=== PATIENT | female | born 1965 | race Caucasian/White ===

== ENCOUNTER 2020-08-04 15:44 | Emergency (ER) | payer OTHER, SELFPAY ==
--- NOTE | ~2020-08-04 | XR_ITS ---
EXAMINATION: XR nasal bones min 3V DATE: 08/04/2020 16:23 INDICATION: Nose injury. TECHNIQUE: 3 views of the nasal bones were obtained. COMPARISON: None. FINDINGS: There are transverse fractures of the nasal bones with less than 1 mm displacement. There i s rightward deviation of the nasal septum. IMPRESSION: 1. Fractures of the nasal bones. Reviewed, dictated and finalized at location A. LITIES MAINTENANCE ASSISTANT
--- NOTE | ~2020-08-04 | XR_ITS ---
EXAMINATION: XR hand LT min 3V DATE: 08/04/2020 16:22 INDICATION: Left thumb pain post fall 4 days prior TECHNIQUE: Posteroanterior, oblique and lateral views of the left hand were obtained. COMPARISON: None. FINDINGS: There appears be widening at the scapholunate interval on the dorsal palmar projection although carpa l alignment appears normal on the lateral projection with no evident dorsal intercalated segment inst ability (DISI). No fracture. Mild osteoarthritis at the first carpometacarpal joint. Mild soft tissue swelling about the base of the first metacarpal. IMPRESSION: 1. The scapholunate interval appears widened on the dorsal palmar image suspicious for possible scaph olunate ligament injury but without evident dorsal intercalated segment instability (DISI) on the lat eral projection to more definitively suggest this. Could consider either dedicated left wrist radiogr aphs with clenched fist or ulnar deviated views or MRI for further evaluation. 2. Mild osteoarthritis at the first carpometacarpal joint. No evident fracture. Reviewed, dictated and finalized at location A. [employer] ELECT[employer]ICIAN IMPRESSION: 1. The scapholunate interval appears widened on the dorsal palmar image suspici ous for possible scapholunate ligament injury but without evident dorsal interc alated segment instability (DISI) on the lateral projection to more definitivel y suggest this. Could consider either dedicated left wrist radiographs with jacquie nched fist or ulnar deviated views or MRI for further evaluation. 2. Mild osteoarthritis at the first carpometacarpal joint. No evident fracture.
--- NOTE | ~2020-08-04 | XR_ITS ---
EXAMINATION: XR wrist LT min 3V EXAM DATE: 08/04/2020 16:42 INDICATION: Lt wrist/hand pain after falling 3x days ago. Anteriorly . Initial encounter. TECHNIQUE: Left wrist frontal, frontal with ulnar deviation, oblique and lateral projections obtained and reviewed. Correlation is made to left hand x-ray same date. FINDINGS: There is left-sided scapholunate joint space widening consistent with dissociation. Cannot determine whether this is an acute or chronic finding, but no appreciable capitate settling at this t mariah. There is moderate 1st carpometacarpal joint primary osteoarthritis. There are no acute fractures or dislocations identified. There is no subcutaneous gas. There are no radiopaque foreign bodies . IMPRESSION: 1. Left-sided scapholunate dissociation, age indeterminate. 2. No fracture. Reviewed, dictated and finalized at location B. ANTER
--- NOTE | 2020-08-04 15:50 | ED.GENADULT ---
HPI - General Adult General Chief complaint: Fall Stated complaint: fall/nose injury/lt hand injury Time Seen by Provider: 08/04/20 16:05 Source: patient and RN notes reviewed Mode of arrival: ambulatory Limitations: no limitations History of Present Illness HPI narrative: 55 year old female who presents to [facility] care with complaints of passing out at home on Friday hitting her face on the hardwood floor with injury to her nose, lips and chipped front 4 teeth. She states that she was dehydrated from being ill and passed out when she got up too fast, had negative flu and Covid test done on Friday.Patient states that she has had syncopal episodes like this in past and was seen in the emergency room in 2003 after and episode,states she takes no medication for hypertension. Patient has noted abrasions around mouth and across nose,healing lip lacerations, small raised bruised area to her left forehead, and also injury to her left hand at thumb region where she is unable to completely make closed fist. Patient states that she went to [facility] clinic today and they gave her an antibiotic but were unable to do x-rays, Dr Napoles is to see patient on Friday and he wanted her to have films and be seen prior to visit. MD complaint: possible fractured nose and left hand pain Onset (ago): day(s) (3) Location: head, left and upper extremity (hand) Radiation: non-radiation Severity: moderate Severity scale (1-10): 5 Quality: aching and other (throbbing) Treatments prior to arrival: NSAID Related Data Home Medications Medication Instructions Recorded Confirmed amoxicillin-pot clavulanate 1 tablet PO Q12H 08/04/20 08/04/20 ergocalciferol (vitamin D2) 50,000 unit PO WEEKLY 08/04/20 08/04/20 escitalopram oxalate 10 mg PO DAILY 08/04/20 08/04/20 Allergies Allergy/AdvReac Type Severity Reaction Status Date / Time Sulfa (Sulfonamide Allergy Hives Verified 08/04/20 15:57 Antibiotics) Review of Systems Review of Systems: Narrative: CONSTITUTIONAL:Positive for intermittent fever, chills, or sweats. EYES: Denies visual changes, redness, or discharge. ENT: Denies rhinorrhea, episode of bleeding from left nostril with no active bleeding at present,no congestion, sore throat, or otalgia. CARDIOVASCULAR: Denies chest pain, palpitations, or edema. RESPIRATORY: Denies cough or dyspnea. GASTROINTESTINAL: Denies abdominal pain, nausea, vomiting, or diarrhea. GENITOURINARY: Denies dysuria or hematuria. SKIN: Denies rash or itching.positive for abrasions on face, healing lip lacerations, chipped front 4 teeth MUSCULOSKELETAL: Denies back pain, positive for left thumb joint pain, or myalgia. NEUROLOGIC: Denies headache, numbness, or weakness. PSYCHIATRIC:Positive history of anxiety or depression. All systems reviewed & are unremarkable except as noted in HPI and below PMFSH Past Medical History Medical History (Updated 08/05/20 @ 13:50 by Karolina Banks NP) Anxiety History of blood pressure problems Surgical History Surgical History (Updated 08/04/20 @ 18:01 by Karolina Banks NP) No history of previous surgery Social History Social History (Updated 08/04/20 @ 18:02 by Karolina Banks NP) Smoking status: Never smoker Alcohol intake: never Substance use: never Living arrangements: with family Gender identity (if verbalized by the patient): Female Comments At time of signature, agree with nursing past medical, surgical, social history. There is no relevant family history pertinent to the presenting complaint Exam Narrative: Exam Narrative: GENERAL: Well-appearing, well-nourished, and in no acute distress. HEAD: Normocephalic, atraumatic.small raised area to right forehead no open skin area, EYES: PERRLA and EOMI.no nystagmus noted ENT: Nares patent but some dried blood left nostril, no rhinorrhea no active epistaxis. Mucous membranes moist.facial swelling around nose with ecchymosis, Tm's normal with good light refl
[2020-08-04 15:57] VITALS: BP 151/82; PULSE 91; RESP 18; TEMP 37.8; O2SAT 99
[2020-08-04 16:01] VITALS: BP 151/82; PULSE 91; RESP 18; TEMP 37.8; O2SAT 99
== END 2020-08-04 17:18 | disposition home or self-care (01) ==
PROVIDERS: Emergency Provider Registered Nurse; PCP Internal Medicine
DX: S02.2XXA Fracture of nasal bones, initial encounter for closed fracture (principal); W19.XXXA Unspecified fall, initial encounter; S69.92XA Unspecified injury of left wrist, hand and finger(s), initial encounter; F41.9 Anxiety disorder, unspecified
CPT/HCPCS: 70160; 73110; 73130; 99214; G0463

== ENCOUNTER → 2021-01-09 00:11 | Outpatient (CLI) | payer OTHER, SELFPAY ==
[2021-01-09 20:44] LABS: SARS-CoV-2 RNA PCR Negative
== END ==
PROVIDERS: PCP Internal Medicine; Visit Provider Internal Medicine Gastroenterology
DX: Z01.812 Encounter for preprocedural laboratory examination (principal); Z20.822 Contact with and (suspected) exposure to COVID-19
CPT/HCPCS: C9803; U0003; U0005

== ENCOUNTER 2021-01-12 00:34 | Day surgery (SDC) | payer OTHER, SELFPAY ==
[2021-01-10 08:33] VITALS: BMI 24.2
--- NOTE | 2021-01-10 08:44 | PC.NURSE ---
Pt. was COVID + 07/2020. Symptoms included fever, cough, shortness of breath, nausea, and dizziness. Pt. did not require hospitalization. Brittanie Evangelista RN 01/10/21 0813
[2021-01-12 11:01] VITALS: BP 134/86; PULSE 95; RESP 16; TEMP 36.4; O2SAT 99
[2021-01-12] MEDS: LACTATED RINGERS 1,000 ML 150 ML IV CONT (11:04)
--- NOTE | 2021-01-12 11:35 | PM.HPGS ---
History of Present Illness History of Present Illness Consent: Risks, benefits, and alternatives have been discussed and questions answered. Patient agrees to proceed with procedure. Chief complaint: dysphagia, neoplasm screening Narrative: Mehreen Espino is a 55 year old female dysphagia with some improvement after using omeprazole but never had egd, also needs screening colonoscopy Review of Systems Constitutional: Constitutional: Denies headache(s) and Denies weakness Eyes: Eyes: Denies blurry vision ENT: Reports Normal hearing present, Denies headache(s) and Denies neck pain Cardiovascular: Cardiovascular: Denies chest pain and Denies dyspnea Respiratory: Respiratory: Denies dyspnea Gastrointestinal: Gastrointestinal: Reports no additional gastrointestinal complaints Genitourinary: Genitourinary: Denies dysuria Musculoskeletal: Musculoskeletal: Denies neck pain Integumentary/Breasts: Skin/Breast: Denies dry skin Neurologic: Reports Normal hearing present, Denies headache(s) and Denies weakness Psychiatric: Psychiatric: Denies anxiety Endocrine: Endocrine: Denies change in body appearance Hematologic/Lymphatic: Hematologic/Lymphatic: Denies easy bleeding Allergic/Immunologic: Allergic/Immunologic: Denies urticaria [facility] Past Medical History Medical History (Updated 10/12/20 @ 11:50 by Abraham Dunlap MD) Anxiety Colon cancer screening Dysphagia GERD (gastroesophageal reflux disease) History of blood pressure problems Surgical History Surgical History No history of previous surgery Social History Social History Smoking status: Never smoker Second hand tobacco smoke exposure: No Alcohol intake: never Substance use: never Living arrangements: alone Gender identity (if verbalized by the patient): Female Spiritual care concerns: No Meds Home Medications and Allergies Home Medications Medication Instructions Recorded Confirmed Type ergocalciferol (vitamin D2) 50,000 unit PO WEEKLY 08/04/20 01/10/21 History omeprazole 40 mg capsule,delayed 40 mg PO DAILY #30 cap 10/12/20 01/10/21 Rx release escitalopram oxalate 20 mg PO DAILY 01/10/21 01/10/21 History Allergies Allergy/AdvReac Type Severity Reaction Status Date / Time Sulfa (Sulfonamide Allergy Severe Hives, Verified 01/12/21 10:37 Antibiotics) blisters mouth scalded Vital Signs Vital Signs - 24 hr 01/12/21 11:01 Temperature 97.5 F L Pulse Rate 95 Respiratory Rate 16 Blood Pressure 134/86 Pulse Oximetry 99 Exam Const: General: comfortable and no acute distress HENMT: General nose exam: Normal nares present Eyes: General: appearance normal, both eyes and all related structures Neck: Neck: no JVD Resp: Auscultation: clear to auscultation bilaterally Cardio: Rate: regular rate Rhythm: regular rhythm GI: Inspection: non-distended GI Palp: Yes Soft to palpation Skin: General skin exam: normal color Neuro: General: gait normal Speech: normal speech Extrem: General: normal to inspection Psych: Mental Status: mental status grossly normal Assessment and Plan Assessment and plan (1) Dysphagia: Code(s): R13.10 - Dysphagia, unspecified Status: Acute Assessment and Plan: egd with bx, better with ppi (2) Colon cancer screening: Code(s): Z12.11 - Encounter for screening for malignant neoplasm of colon Status: Acute Assessment and Plan: due to have colonoscopy
[2021-01-12] MEDS: BENZOCAINE (*SP) 60 ML SPRAY CAN (HURRICAINE) 1 SPRAY MUCOUS MEM (11:41)
[2021-01-12 12:07] VITALS: BP 104/70; PULSE 80; RESP 15; O2SAT 98
[2021-01-12 12:17] VITALS: BP 119/74; PULSE 77; RESP 15; O2SAT 100
[2021-01-12 12:27] VITALS: BP 146/69; PULSE 72; RESP 20; O2SAT 99
== END 2021-01-12 12:45 | disposition home or self-care (01) ==
PROVIDERS: PCP Internal Medicine; Visit Provider Internal Medicine Gastroenterology
PROC: 0DJ08ZZ Inspection of Upper Intestinal Tract, Via Natural or Artificial Opening Endoscopic (ICD-10-PCS; CPT 43235; principal; 2021-01-12 11:30)
DX: Z12.11 Encounter for screening for malignant neoplasm of colon (principal); R13.10 Dysphagia, unspecified; K29.50 Unspecified chronic gastritis without bleeding; K21.9 Gastro-esophageal reflux disease without esophagitis; K64.8 Other hemorrhoids; F41.9 Anxiety disorder, unspecified
CPT/HCPCS: 45378; 43239; 88305; J2704; J7120

== ENCOUNTER 2021-05-04 18:39 | Emergency (ER) | payer OTHER, SELFPAY ==
--- NOTE | ~2021-05-04 | XR_ITS ---
EXAMINATION: XR knee RT 3V DATE: 05/04/2021 19:10 INDICATION: Right knee injury and pain. TECHNIQUE: 3 views of right knee were obtained. COMPARISON: None. FINDINGS: Bone alignment is normal. No fracture. There is mild osteoarthritis of medial compartment. No knee joint effusion. IMPRESSION: 1. Mild right knee osteoarthritis. Reviewed, dictated and finalized at location A.
--- NOTE | 2021-05-04 19:10 | ED.WOUNDLAC ---
HPI - Wound/Laceration General Chief Complaint: Wound/Laceration Stated Complaint: PW L FOREARM Time Seen by Provider: 05/04/21 18:55 Source: patient and RN notes reviewed Mode of arrival: ambulatory Limitations: no limitations History of Present Illness HPI narrative: 35-year-old female who presents to [facility] Care with complaints of puncture wound to her left outer forearm which happened about 30 minutes ago when she was helping her elderly neighbor move a pallet. She cautioned him about the nail sticking out but then she ended up getting punctured by vinnie nail. Patient states concern that her tetanus shot is not up to date and since nail was vinnie she felt she should come and be seen, denies acute pain to site, small amount of bleeding noted. Patient states that her chiropractor wants her to have her knee x-rayed she is still having issues with it after a fall this past July when she passed out at home and broke nose and injured teeth also. Onset (ago): minute(s) (30 minutes prior to arrival) Location: other Extremity Location: Left: forearm Place: outdoors Patient tetanus UTD: No Context: accidental Associated symptoms: none Treatments prior to arrival: bandage Related Data Home Medications Medication Instructions Recorded Confirmed ergocalciferol (vitamin D2) 50,000 unit PO WEEKLY 08/04/20 04/11/21 escitalopram oxalate 20 mg PO DAILY 01/10/21 04/11/21 bupropion HCl mg PO 05/04/21 Allergies Allergy/AdvReac Type Severity Reaction Status Date / Time Sulfa (Sulfonamide Allergy Severe Hives, Verified 04/11/21 14:42 Antibiotics) blisters mouth scalded Review of Systems Review of Systems: CONSTITUTIONAL: Denies fever, chills, or sweats. EYES: Denies visual changes, redness, or discharge. ENT: Denies rhinorrhea, congestion, sore throat, or otalgia. CARDIOVASCULAR: Denies chest pain, palpitations, or edema. RESPIRATORY: Denies cough or dyspnea. GASTROINTESTINAL: Denies abdominal pain, nausea, vomiting, or diarrhea. GENITOURINARY: Denies dysuria or hematuria. SKIN: Denies rash or itching.puncture wound to left outer forearm with a vinnie nail accidentally about 30 minutes ago, no acute drainage noted, bleeding controlled. MUSCULOSKELETAL: Denies back pain, joint pain, or myalgia. NEUROLOGIC: Denies headache, numbness, or weakness. PSYCHIATRIC: Positive history of anxiety or depression. All systems reviewed & are unremarkable except as noted in HPI and below PMFSH Past Medical History Medical History (Updated 05/06/21 @ 19:19 by Karolina Banks NP) Anxiety Closed fracture of nasal bone Colon cancer screening Dysphagia GERD (gastroesophageal reflux disease) History of blood pressure problems Surgical History Surgical History No history of previous surgery Family History Family History (Updated 05/06/21 @ 19:06 by Karolina Banks NP) Other No significant family history Social History Social History Smoking status: Never smoker Second hand tobacco smoke exposure: No Alcohol intake: never Substance use: never Gender identity (if verbalized by the patient): Female Spiritual care concerns: No Comments At time of signature, agree with nursing past medical, surgical, social and family history. There is no relevant family history pertinent to the presenting complaint Exam Narrative: GENERAL: Well-appearing, well-nourished, and in no acute distress. HEAD: Normocephalic, atraumatic. EYES: PERRLA and EOMI. ENT: Nares clear, no rhinorrhea or epistaxis. Mucous membranes moist. NECK: Supple. no lymphadenopathy CHEST: Clear to auscultation. No respiratory distress.SAO2 100% on room air. HEART: Regular rate and rhythm. No murmur heard. Normal peripheral pulses. ABDOMEN: Soft, nontender, nondistended, normal active bowel sounds. EXTREMITIES: Normal range of motion. No edema n
[2021-05-04] MEDS: TETANUS,DIPHTHERIA,AC PERTUSSIS ADULT (0.5 ML) BOOSTRIX IM (19:27)
[2021-05-04 19:36] VITALS: BP 147/80; PULSE 86; RESP 16; TEMP 36.7; O2SAT 100
== END 2021-05-04 19:44 | disposition home or self-care (01) ==
PROVIDERS: Emergency Provider Registered Nurse; PCP Internal Medicine
DX: S51.832A Puncture wound without foreign body of left forearm, initial encounter (principal); W45.0XXA Nail entering through skin, initial encounter; Z23 Encounter for immunization; F41.9 Anxiety disorder, unspecified; K21.9 Gastro-esophageal reflux disease without esophagitis
CPT/HCPCS: 73562; 90471; 90715; 99213; G0463

== ENCOUNTER 2021-05-10 17:46 | Outpatient (CLI) | payer OTHER, SELFPAY ==
--- NOTE | ~2021-05-10 | MM_ITS ---
EXAMINATION: MM screening shilpa BI w saud HISTORY: Screening TECHNIQUE: Craniocaudal and mediolateral oblique 3-D tomosynthesis images were obtained and synthetic 2-D images were generated. CAD analysis was submitted and interpreted. COMPARISON: No prior mammogram is available for comparison at this institution. BREAST PARENCHYMAL COMPOSITION: The breasts are heterogeneously dense, which may obscure small masses . FINDINGS: There is no evidence of suspicious mass, calcification, or architectural distortion to sugg est malignancy in either breast. There has been no suspicious interval change. IMPRESSION: 1. No mammographic evidence of malignancy. 2. Recommend routine screening mammography in one year. BI-RADS Category 1: Negative Reviewed, dictated and finalized at location A.
== END 2021-05-10 17:47 | disposition home or self-care (01) ==
LOC: ANHIMG 17:47
PROVIDERS: PCP Internal Medicine; Visit Provider Advanced Practice Midwife
DX: Z12.31 Encounter for screening mammogram for malignant neoplasm of breast (principal)
CPT/HCPCS: 77063; 77067

== ENCOUNTER 2021-07-05 18:06 | Emergency (ER) | payer OTHER, SELFPAY ==
--- NOTE | ~2021-07-05 | XR_ITS ---
EXAMINATION: XR knee RT 3V EXAM DATE: 07/05/2021 19:03 INDICATION: Pain Since Fall X1 Month Ago,Medial Pain Down Side Of Patell . TECHNIQUE: Three projections of the right knee. Comparison is made to prior examination from 05/04/2021 . FINDINGS: No evidence osteochondral defect or joint body in the right knee joint. There are no acut e fractures or dislocations identified. There is no subcutaneous gas. The soft tissue is unremarkab le. There are no radiopaque foreign bodies. Joint spaces are preserved. No joint effusion. IMPRESSION: 1. Unremarkable XR knee RT 3V exam. Reviewed, dictated and finalized at location G.
--- NOTE | ~2021-07-05 | XR_ITS ---
EXAMINATION: XR knee LT 3V EXAM DATE: 07/05/2021 19:03 INDICATION: Pain Since Fall X1 Month Ago,Medial Pain Down Side Of patella. TECHNIQUE: Three projections of the left knee. There is no prior study for comparison. FINDINGS: No evidence osteochondral defect or joint body in the left knee joint. Joint spaces are preserved. There are no acute fractures or dislocations identified. There is no subcutaneous gas. T race joint fluid. There are no radiopaque foreign bodies. IMPRESSION: 1. Unremarkable XR knee LT 3V exam. Reviewed, dictated and finalized at location G.
[2021-07-05 18:19] VITALS: BP 175/89; PULSE 80; RESP 18; TEMP 36.3; O2SAT 98
--- NOTE | 2021-07-05 19:48 | ED.LOWEXIN ---
HPI - Extremity Injury (Lower) General Chief Complaint: Extremity Injury, Lower Stated Complaint: fall/knee pain Time Seen by Provider: 07/05/21 19:39 Source: patient History of Present Illness HPI Narrative: Patient presents with bilateral knee pain. She reports she had a fall approximately 1 month ago where she struck her face on the ground had multiple facial fractures and dental fractures following facial trauma. She also knee pain time initial plain films were negative however over the past month she has had increasing knee pain and swelling she was concerned so she came to the ER for evaluation. She denies focal numbness or weakness she denies any new trauma Related Data Home Medications Medication Instructions Recorded Confirmed ergocalciferol (vitamin D2) 50,000 unit PO WEEKLY 08/04/20 04/11/21 escitalopram oxalate 20 mg PO DAILY 01/10/21 04/11/21 bupropion HCl mg PO 05/04/21 Allergies Allergy/AdvReac Type Severity Reaction Status Date / Time Sulfa (Sulfonamide Allergy Severe Hives, Verified 07/05/21 19:41 Antibiotics) blisters mouth scalded Review of Systems Review of Systems: CONSTITUTIONAL: Denies fever, chills, or sweats. EYES: Denies visual changes, redness, or discharge. ENT: Denies rhinorrhea, congestion, sore throat, or otalgia. CARDIOVASCULAR: Denies chest pain, palpitations, or edema. RESPIRATORY: Denies cough or dyspnea. GASTROINTESTINAL: Denies abdominal pain, nausea, vomiting, or diarrhea. GENITOURINARY: Denies dysuria or hematuria. SKIN: Denies rash or itching. MUSCULOSKELETAL: Denies back pain, or myalgia. NEUROLOGIC: Denies headache, numbness, dizziness, or weakness. PSYCHIATRIC: Denies anxiety or depression. All systems reviewed & are unremarkable except as noted in HPI and below PMFSH Past Medical History Medical History Anxiety Closed fracture of nasal bone Colon cancer screening Dysphagia GERD (gastroesophageal reflux disease) History of blood pressure problems Surgical History Surgical History No history of previous surgery Family History Family History Other No significant family history Social History Social History Smoking status: Never smoker Second hand tobacco smoke exposure: No Alcohol intake: never Substance use: never Gender identity (if verbalized by the patient): Female Spiritual care concerns: No Exam Narrative: GENERAL: Well-appearing, well-nourished, and in no acute distress. HEAD: Normocephalic, atraumatic. EYES: PERRLA and EOMI. ENT: Nares clear, no rhinorrhea or epistaxis. Mucous membranes moist. NECK: Supple. No masses. No JVD EXTREMITIES: Normal range of motion. Mild symmetric edema noted in the bilateral knees mild tenderness to the proximal tibia medial aspect on the bilateral knees. Right knee with mild laxity with varus stress mild laxity noted with valgus stress on the left knee. Anterior posterior drawer without laxity in the bilateral knees. There are no open or draining wounds there is no obvious deformity patient is able ambulate without difficulty SKIN: Warm, dry, no rash. NEURO: No focal deficits. Alert and oriented x3. PSYCH: Normal mood and affect. Course Vital Signs Vital signs: Vital Signs Temperature 36.3 C L 07/05/21 18:19 Pulse Rate 80 07/05/21 18:19 Respiratory Rate 18 07/05/21 18:19 Blood Pressure 175/89 H 07/05/21 18:19 Pulse Oximetry 98 07/05/21 18:19 Temperature 36.3 C L 07/05/21 18:19 Pulse Rate 80 07/05/21 18:19 Respiratory Rate 18 07/05/21 18:19 Blood Pressure 175/89 H 07/05/21 18:19 Pulse Oximetry 98 07/05/21 18:19 MDM - Extremity Injury (Lower) MDM Narrative Medical decision making narrative: H&P as above, vss, pt looks clinically we
== END 2021-07-05 20:05 | disposition home or self-care (01) ==
PROVIDERS: Emergency Provider Emergency Medicine; PCP Internal Medicine
DX: M25.562 Pain in left knee (principal); M25.561 Pain in right knee; F41.9 Anxiety disorder, unspecified; K21.9 Gastro-esophageal reflux disease without esophagitis
CPT/HCPCS: 73562; 99284

== ENCOUNTER 2021-09-07 13:26 | Outpatient (CLI) | payer OTHER, SELFPAY ==
--- NOTE | ~2021-09-07 | DEXA_ITS ---
Bone Density Report Name: TATYANA MORALES Age: 56 Sex: Female Ethnicity: White Date of : 1965 Indication: postmenopausal; Referring Provider: Wali Petit Study: Bone densitometry was performed. Exam Date: September 07, 2021 Accession number: [id number] Bone Density: Region BMD T-score Z-score Classification AP Spine (L1-L4) 0.788 -2.4 -1.2 Osteopenia Femoral Neck (Left) 0.579 -2.4 -1.3 Osteopenia Total Hip (Left) 0.702 -2.0 -1.2 Osteopenia Total Hip Bilateral Avg 0.704 -2.0 -1.2 Osteopenia Femoral Neck (Right) 0.575 -2.5 -1.4 Osteoporosis Total Hip (Right) 0.705 -1.9 -1.2 Osteopenia World Health Organization criteria for BMD impression classify patients as: Normal (T-score at or above -1.0), Osteopenia (T-score between -1.0 and -2.5), or Osteoporosis (T-score at or below -2.5). 10-year Fracture Risk: FRAX not reported because: Some T-score for Spine Total or Hip Total or Femoral Neck at or below -2.5 Clinical Information Provided by Patient: Has used the following medications: Vitamin D Patient maximum height was 66 Menopause Age: 50 No regular weight bearing exercise Does not regularly consume dairy products Drinks caffeinated beverages Onset of menses at age 14 Number of children 0 Impression: The patient has osteoporosis, based on the Right Femoral Neck T-score. Discussion: INCREASED RISK OF FRACTURE. BONE DENSITY IS UNDESIRABLY LOW AT ONE OR MORE SKELETAL SITES, CONSISTENT WITH POSTMENOPAUSAL OSTEOPOROSIS. This patient's lowest T-score meets the World Health Organization's (WHO) criteria for osteoporosis at one or more sites (T-score -2.5 or below). In untreated patients, the risk of osteoporotic fracture increases approximately two-fold for each 1.0 SD decrease in T-score. Low bone density is not the only risk factor for fracture; also consider factors such as patient's age, frailty or poor health, risk of falling, risk of injury, previous osteoporotic fracture, family history of osteoporosis, cigarette smoking, low body weight, etc. Not everyone with low bone mineral density has osteoporosis; osteomalacia and other metabolic bone disorders should also be considered. Patients who have osteoporosis should be evaluated for specific diseases and conditions (secondary causes) that may cause or contribute to bone loss. The [place] [employer] Endocrinologists (AACE) and National Osteoporosis Foundation (NOF) recommend pharmacologic intervention for all postmenopausal women whose T-score is in this range. The patient should follow a healthful lifestyle (good nutrition with adequate calcium and vitamin D, and appropriate weight-bearing exercise). Follow-Up: Consider a repeat BMD and Vertebral Fracture Assessment (VFA) exam in 2 years or sooner if medically necessary, to reassess this patient's
== END 2021-09-07 13:27 | disposition home or self-care (01) ==
LOC: ANHIMG 13:30
PROVIDERS: PCP Internal Medicine; Visit Provider Obstetrics & Gynecology
DX: Z78.0 Asymptomatic menopausal state (principal); M85.89 Other specified disorders of bone density and structure, multiple sites; M81.0 Age-related osteoporosis without current pathological fracture
CPT/HCPCS: 77080

== ENCOUNTER 2021-12-09 09:27 | Outpatient (CLI) | payer OTHER, SELFPAY ==
--- NOTE | ~2021-12-09 | MR_ITS ---
EXAMINATION: MR knee RT wo con DATE: 12/09/2021 10:35 INDICATION: Right knee pain TECHNIQUE: Magnetic resonance imaging (MRI) of the right knee was performed without intravenous contr ast. Sequences included coronal PD-weighted FSE, coronal PD-weighted FS FSE, sagittal T2-weighted FS E, sagittal PD-weighted FS FSE and axial PD weighted fat saturated FSE. COMPARISON: None. FINDINGS: Medial compartment: Longitudinal horizontal tear extending to the inferior articular surface of the body and posterior ho rn of the medial meniscus. Articular cartilage is normal. Lateral compartment: Lateral meniscus is normal. Articular cartilage is normal. Patellofemoral compartment: Millimeter long partial-thickness chondral fissure involving up to 50% the cartilage thickness at the medial patellar facet. The oblique sagittally oriented tear plane can be best visualized on coronal series 5, image 7. Patellofemoral cartilage is otherwise normal. Ligaments and tendons: Anterior and posterior cruciate ligaments are normal. Mild thickening of the proximal medial collater al ligament without abnormal signal or surrounding edema consistent with mild scarring related to chr onic sprain. The fibular collateral ligament complex is normal. The extensor mechanism is normal. The visualized medial and lateral hamstring tendons as well as the iliotibial band are normal. Fluid: Physiologic amount of fluid in the joint space. No loose osteochondral bodies identified. Osseous/other: There is mild marrow edema extending along the irregular linear healing fracture line at the medial t ibial metaphysis with small amount of healing callus formation evident on the prior radiographs. Erendira lar fracture line is seen at the time of the contralateral left medial metaphysis suggesting this may represent stress/insufficiency fractures. Otherwise normal marrow signal with no pathologic marrow r eplacing process. IMPRESSION: 1. Healing subacute fracture of the medial right tibial metaphysis with similar fracture at the contr alateral medial left tibial metaphysis evident on radiographs one month prior suggesting these may re present stress/insufficiency fractures. 2. Longitudinal horizontal tear of the body and posterior horn of the medial meniscus. 3. Partial-thickness chondral fissure at the medial patellar facet. 4. Likely mild scarring related to chronic sprain at the proximal medial collateral ligament. Reviewed, dictated and finalized at location A. IMPRESSION: 1. Healing subacute fracture of the medial right tibial metaphysis with similar fracture at the contralateral medial left tibial metaphysis evident on radiogr aphs one month prior suggesting these may represent stress/insufficiency fractu res. 2. Longitudinal horizontal tear of the body and posterior horn of the medial me niscus. 3. Partial-thickness chondral fissure at the medial patellar facet. 4. Likely mild scarring related to chronic sprain at the proximal medial collat eral ligament.
== END 2021-12-09 09:28 | disposition home or self-care (01) ==
LOC: ANHIMG 09:37
PROVIDERS: PCP Internal Medicine; Visit Provider Orthopaedic Surgery
DX: S83.241A Other tear of medial meniscus, current injury, right knee, initial encounter (principal); X58.XXXA Exposure to other specified factors, initial encounter
CPT/HCPCS: 73721

== ENCOUNTER 2022-01-23 00:43 | Day surgery (SDC) | payer OTHER, SELFPAY ==
[2022-01-16 16:33] VITALS: BMI 22.7
--- NOTE | 2022-01-16 16:56 | PC.NURSE ---
Report to the Outpatient Waiting Room, entrance under the green pavilion located off [facility], at time 1200 on date 01/23/22. OR Time: 1400____. - You and your visitor will be asked a series of questions to screen for COVID 19 for your protection. - A mask is required within the hospital. Preoperative COVID Testing Requirements: No COVID Test needed if: (proof is required; if not received patient will have Rapid Test prior to entry) - Patient has received COVID Vaccine at least 14 days prior to procedure date or - Patient has positive COVID test result within last 90 days of surgery date. COVID Test needed if above criteria is not met If not COVID vaccinated a COVID test must be conducted within 72 hours of surgery and patient is asked to isolate self from time of testing until procedure. You will go to the [facility] for your COVID testing. The [facility] Testing site is located at the corner of [address] [facility]. You will only be called if COVID results are positive and your surgeon may reschedule your elective surgery date. Patients may have clear liquids (water, carbonated beverages, clear teas, apple juice) until 3 hours prior to surgery with a maximum of 20 ounces. - No food from midnight until time of surgery - Infants may have breast milk until 4 hours before surgery, formula 6 hours prior to surgery. - Children will be allowed to drink immediately following surgery. If applicable, please bring a bottle or sippy cup to assist with drinking. Juice, water, soda, and popsicles are readily available. For infants on formula, please bring formula the day of surgery. Pacifiers are allowed. Take the following medications with a SIP of water the morning of surgery: n/a Medications to discontinue per physician vitamin Date to take last dose01/20/22 Please no make-up, nail telugu, hairspray, perfume, deodorant, or body powder the day of surgery. No jewelry (including any body piercings) or valuables the day of surgery, leave them at home. Please take a shower or bath the night before, or the morning of, surgery with an antibacterial soap. Wear comfortable, loose fitting clothing. Children are encouraged to wear pajamas. - Jewelry must be removed prior to entering the operating room. Rings and piercings that are not removed may be cut off. - The hospital will not accept responsibility for valuables. - Please leave all valuables, including medications, at home the day of surgery. If you are going home after surgery, a licensed trash collector truck driver must drive you home. - NO public transportation without another adult. - We recommend that an adult stay with you for 24 hours following discharge. - We also recommend that you do not drive, make important decision, drink alcoholic beverages, or take any drugs that were not prescribed by your health care provider for at least 24 hours after your discharge time. For Pediatric surgeries, we recommend two adults accompany the child home (only one inside the building at this time). One visitor will be allowed to accompany the patient into the hospital. Patients visitor will be instructed to remain with patient at all times or leave the building. We will allow the visitor to come back to the postoperative area when patient is ready. Follow any additional instructions given to you from your surgeon. Telephone instructions given to Mehreen Espino and asked if any additional questions and then verbalized understanding. Patient advised to call surgeon office or pre surgery nurse liaison [phone] if any additional questions.
--- NOTE | 2022-01-22 11:02 | WPDANESEPPF ---
Anes - Initial Pre Proc Eval Procedure: Operation Date: 01/23/22 13:30 Proposed Procedures p Right Knee Arthroscopy, Proceed As Indicated - Celestine Gan MD Date/Time: 01/22/22 11:02 Surgeon: Celestine Gan MD Pre Op Diagnosis: right knee medial meniscus tear Patient Data Age: 56 Gender: F Height: 1.68 m Weight: 64 kg Allergies Allergy/AdvReac Type Severity Reaction Status Date / Time Sulfa (Sulfonamide Allergy Severe Hives, Verified 01/23/22 12:01 Antibiotics) blisters mouth scalded Home Medications Medication Instructions Recorded Confirmed Type ergocalciferol (vitamin D2) 50,000 unit PO WEEKLY 08/04/20 01/23/22 History escitalopram oxalate 20 mg PO DAILY 01/10/21 01/23/22 History bupropion HCl 150 mg PO DAILY 05/04/21 01/23/22 History omeprazole 20 mg capsule,delayed 20 mg PO BID 90 Days #180 cap 05/22/21 01/23/22 Rx release fluticasone propionate See Rx Instructions .ROUTE 01/16/22 01/23/22 History .COMPLEX PRN Patient hx anesthesia problems: none Family hx anesthesia problems: none Results Review: All pre-operative results and documents have been reviewed as part of the pre-operative evaluation. [facility] Past Medical History Medical History Anxiety Closed fracture of nasal bone Colon cancer screening Dysphagia GERD (gastroesophageal reflux disease) History of blood pressure problems Surgical History Surgical History History of sinus surgery 2020 Family History Family History Mother Heart disease Hypertension High cholesterol Father Hypertension High cholesterol Carcinoma of colon Malignant neoplasm of prostate Social History Social History Second hand tobacco smoke exposure: No Alcohol intake: never Substance use: never Living arrangements: alone Gender identity (if verbalized by the patient): Female Spiritual care concerns: No Anes - Eval Final PreProcedure Day of Procedure 01/22/22 11:02 Patient weight: overweight Heart: regular rate and rhythm Lungs: clear to auscultation and normal air movement Airway: Mallampati scale class II Neurological: alert and oriented Last oral intake: >/= 8 hours ASA classification: II Emergent: no Anesthetic plan: proceed Anesthesia type and monitoring: general LMA Results Review: All pre-operative results and documents have been reviewed as part of the pre-operative evaluation. Informed Consent: The patient's anesthetic plan and its attendant risks and benefits were discussed with the patient/family/POA. Questions were solicited and answers provided to the satisfaction of the patient/family/POA.
[2022-01-23] VITALS (8 sets, daily range): BP systolic 115–147; BP diastolic 64–74; PULSE 72–89; RESP 12–20; TEMP 36.6–36.7; O2SAT 98–100
--- NOTE | 2022-01-23 07:11 | WPDHPUPDATE1 ---
History and Physical Update Update Date/Time: 01/23/22 07:11 History and Physical has been reviewed, including an updated exam of the patient. There are NO changes in the patient's condition. Risks, benefits, and alternatives have been discussed and questions answered. Patient agrees to proceed with procedure.
[2022-01-23] MEDS: CELECOXIB 200 MG CAPSULE PO (12:08)
[2022-01-23] MEDS: ACETAMINOPHEN 500 MG TABLET 1000 MG PO (12:08)
[2022-01-23] MEDS: LACTATED RINGERS 1,000 ML 30 ML IV CONT (12:34)
[2022-01-23] MEDS: ceFAZolin 2 GM/D5W 50 ML 2 GM/50 ML BAG IVPB (13:40)
[2022-01-23] MEDS: BUPIVACAINE HCL 0.5% PF 30 ML VIAL INFILTRATE (14:15)
--- NOTE | 2022-01-23 14:56 | W.PM.PROC2 ---
Procedure Note - Detailed Date of Procedure 01/23/22 Pre-op Diagnosis right knee medial meniscus tear Post-op Diagnosis Same Procedure Performed RIGHT KNEE SCOPE Surgeon Celestine Gan MD Anesthesia General Description of Procedure PATIENT WAS TAKEN TO THE OR. RIGHT LEG WAS PREPPED AND DRAPED STERILE. TROCARS WERE PLACED IN THE USUAL FASHION. CAMERA WAS INTRODUCED. THERE WAS CHONDROMALACIA TO THE PATELLA FEMORAL JOINT. THE MEDIAL COMPARTMENT SHOWED CHONDROMALACIA TO THE MEDIAL FEMORAL CONDYLE. A SHAVER WAS USED TO PREFORM A CHONDROPLASTY. THERE WAS A COMPLEX MEDIAL MENISCUS TEAR. THE TEAR WAS RESECTED WITH A BITER AND A SHAVER DOWN TO A SMOOTH BASE. ABOUT 10% OF THE MENISCUS WAS REMOVED. THE ACL WAS INTACT. THE LATERAL MENISCUS WAS NOT TORN. THE LATERAL COMPARTMENT HAD NO CHONDROMALACIA. THE PATELLO FEMORAL JOINT UNDERWENT CHONDROPLASTY. THERE WAS GRADE 2 CHONDROMALACIA IN PART OF THE PATELLA ALONG THE MEDIAL FACET. SYNOVECTOMY WAS PREFORMED IN THE SUPERIOR MEDIAL COMPARTMENT. THE WOUNDS WERE APPROXIMATED WITH 4.0 NYLON. STERILE DRESSING WAS APPLIED. PATIENT WAS EXTUBATED. Estimated Blood Loss 5 Complications No immediate complications Condition Stable Disposition PACU
[2022-01-23] MEDS: fentaNYL CITRATE INJ (*CRX) 100 MCG/2 ML VIAL 25 MCG IV PUSH ×2 (15:00→15:03)
== END 2022-01-23 16:24 | disposition home or self-care (01) ==
PROVIDERS: PCP Internal Medicine; Visit Provider Orthopaedic Surgery
PROC: (CPT 29870; principal; 2022-01-23 13:30)
DX: S83.231A Complex tear of medial meniscus, current injury, right knee, initial encounter (principal); M94.262 Chondromalacia, left knee; M65.861 Other synovitis and tenosynovitis, right lower leg; W19.XXXA Unspecified fall, initial encounter; K21.9 Gastro-esophageal reflux disease without esophagitis; F41.9 Anxiety disorder, unspecified
CPT/HCPCS: 29881; A9270; J0690; J1100; J2250; J2405; J2704; J3010; J7120

== ENCOUNTER 2022-03-03 10:03 | Emergency (ER) | payer OTHER, SELFPAY ==
[2022-03-03 10:10] VITALS: BP 133/70; PULSE 76; RESP 16; TEMP 36; O2SAT 100
--- NOTE | 2022-03-03 10:22 | ED.GENADULT ---
HPI - General Adult General Chief complaint: Upper Respiratory Infection Stated complaint: SINUS CONGESTION/DRAINAGE Source: patient Mode of arrival: ambulatory Limitations: no limitations History of Present Illness HPI narrative: Patient presents for evaluation of sinus congestion and drainage for the last 48 hours. She states that drainage from her nose is a thick mucopurulent yellow discharge. She had a fever yesterday but none since that time. No chills, nausea, vomiting, diarrhea, body aches. She reports mild sore throat from postnasal drainage and cough from postnasal drainage as well. She has mild shortness of breath. Her sister has similar symptoms. No hx of COVID. She has received COVID vaccine and booster. She does not smoke. She has had sinus infections in the past and this feels similar. She has taken augmentin in the past and it has been effective. Related Data Home Medications Medication Instructions Recorded Confirmed ergocalciferol (vitamin D2) 1,250 50,000 unit PO WEEKLY 08/04/20 03/03/22 mcg (50,000 unit) capsule escitalopram oxalate 20 mg tablet 20 mg PO DAILY 01/10/21 03/03/22 bupropion HCl 150 mg 24 hr tablet, 150 mg PO DAILY 05/04/21 03/03/22 extended release fluticasone propionate 50 See Rx Instructions .Route 01/16/22 03/03/22 mcg/actuation nasal .COMPLEX PRN Allergy Symptoms spray,suspension Allergies Allergy/AdvReac Type Severity Reaction Status Date / Time Sulfa (Sulfonamide Allergy Severe Hives, Verified 03/03/22 10:11 Antibiotics) blisters mouth scalded Review of Systems Review of Systems: CONSTITUTIONAL: Reports fever. Denies chills, or sweats. EYES: Denies visual changes, redness, or discharge. ENT: Reports sinus congestion and thick mucopurulent discharge from nares. Reports mild sore throat from postnasal drainage CARDIOVASCULAR: Denies chest pain, palpitations, or edema. RESPIRATORY: Reports productive cough and shortness of breath GASTROINTESTINAL: Denies abdominal pain, nausea, vomiting, or diarrhea. GENITOURINARY: Denies dysuria or hematuria. SKIN: Denies rash or itching. MUSCULOSKELETAL: Denies back pain, joint pain, or myalgia. NEUROLOGIC: Denies headache, numbness, dizziness, or weakness. PSYCHIATRIC: Denies anxiety or depression. [facility] Past Medical History Medical History Anxiety Closed fracture of nasal bone Colon cancer screening Dysphagia GERD (gastroesophageal reflux disease) History of blood pressure problems Surgical History Surgical History History of sinus surgery 2020 Family History Family History Mother Heart disease Hypertension High cholesterol Father Hypertension High cholesterol Carcinoma of colon Malignant neoplasm of prostate Social History Social History Smoking status: Never smoker Second hand tobacco smoke exposure: No Alcohol intake: never Substance use: never Gender identity (if verbalized by the patient): Female Spiritual care concerns: No Exam Narrative: GENERAL: Well-appearing, well-nourished, and in no acute distress. HEAD: Normocephalic, atraumatic. EYES: PERRLA and EOMI. ENT: Nares clear, no rhinorrhea or epistaxis. Mucous membranes moist. Oropharynx without tonsillar hypertrophy exudate or other lesions. Bilateral TMs erythematous without bulging or retraction CHEST: Clear to auscultation. No respiratory distress. No wheezes rales or rhonchi HEART: Regular rate and rhythm. No murmur heard. Normal peripheral pulses. ABDOMEN: Soft, nontender, nondistended, normal active bowel sounds. EXTREMITIES: Normal range of motion. No edema. SKIN: Warm, dry, no rash. NEURO: No focal deficits. Alert and oriented x3. PSYCH: Normal mood and affect.
== END 2022-03-03 10:24 | disposition home or self-care (01) ==
PROVIDERS: Emergency Provider Nurse Practitioner; PCP Internal Medicine
DX: J32.9 Chronic sinusitis, unspecified (principal); K21.9 Gastro-esophageal reflux disease without esophagitis; F41.9 Anxiety disorder, unspecified
CPT/HCPCS: 99213; G0463

== ENCOUNTER 2022-04-04 17:54 | Emergency (ER) | payer OTHER, SELFPAY ==
--- NOTE | ~2022-04-04 | XR_ITS ---
XR foot RT min 3V DATE: 04/04/2022 18:12 INDICATION: Diffuse right foot pain after dropping a bandage onto the foot TECHNIQUE: 4 views COMPARISON: None FINDINGS: There is a nondisplaced fracture of the metaphysis and shaft of the proximal phalanx of the fifth digit. No other fracture or dislocation. No periosteal reaction or bone destruction. IMPRESSION: Fifth digit proximal phalangeal virtually nondisplaced fracture Reviewed, dictated and finalized at location A.
[2022-04-04 18:02] VITALS: BP 123/76; PULSE 78; RESP 16; TEMP 36.4; O2SAT 99
--- NOTE | 2022-04-04 18:17 | ED.LOWEXIN ---
HPI - Extremity Injury (Lower) General Chief Complaint: Extremity Injury, Lower Stated Complaint: right foot pain Time Seen by Provider: 04/04/22 18:17 Source: patient Mode of arrival: ambulatory Limitations: no limitations History of Present Illness HPI Narrative: 56-year-old female presents with complaint of pain, swelling and bruising to right foot after dropping bench on foot approximately 1 hour prior to arrival. Was moving bench with her sister. Ambulatory with steady gait. All systems reviewed and negative except as noted above. Related Data Home Medications Medication Instructions Recorded Confirmed ergocalciferol (vitamin D2) 1,250 50,000 unit PO WEEKLY 08/04/20 04/04/22 mcg (50,000 unit) capsule escitalopram oxalate 20 mg tablet 20 mg PO DAILY 01/10/21 04/04/22 bupropion HCl 150 mg 24 hr tablet, 150 mg PO DAILY 05/04/21 04/04/22 extended release omeprazole 20 mg capsule,delayed 1 cap PO BID 04/04/22 04/04/22 release Allergies Allergy/AdvReac Type Severity Reaction Status Date / Time Sulfa (Sulfonamide Allergy Severe Hives, Verified 04/04/22 18:03 Antibiotics) blisters mouth scalded Review of Systems Review of Systems: CONSTITUTIONAL: Denies fever, chills, or sweats. EYES: Denies visual changes, redness, or discharge. ENT: Denies rhinorrhea, congestion, sore throat, or otalgia. CARDIOVASCULAR: Denies chest pain, palpitations, or edema. RESPIRATORY: Denies cough or dyspnea. GASTROINTESTINAL: Denies abdominal pain, nausea, vomiting, or diarrhea. GENITOURINARY: Denies dysuria or hematuria. SKIN: Denies rash or itching. MUSCULOSKELETAL: Reports pain, bruising to right foot. NEUROLOGIC: Denies headache, numbness, or weakness. PSYCHIATRIC: Denies anxiety or depression. All other systems reviewed are negative, except as documented in HPI. [facility] Past Medical History Medical History Anxiety Closed fracture of nasal bone Colon cancer screening Dysphagia GERD (gastroesophageal reflux disease) History of blood pressure problems Surgical History Surgical History History of sinus surgery 2020 Family History Family History Mother Heart disease Hypertension High cholesterol Father Hypertension High cholesterol Carcinoma of colon Malignant neoplasm of prostate Social History Social History Smoking status: Never smoker Second hand tobacco smoke exposure: No Alcohol intake: never Substance use: never Gender identity (if verbalized by the patient): Female Spiritual care concerns: No Comments At time of signature, agree with nursing past medical, surgical, social and family history. There is no relevant family history pertinent to the presenting complaint. Exam Narrative: GENERAL: This is a well-nourished, well-developed patient, in no apparent distress. HEAD: normocephalic, atraumatic. EYES: PERRL. Sclera clear/white. Vision is grossly intact. EARS: External ears normal NOSE: External nose normal NECK: Neck supple, non-tender without lymphadenopathy, masses or thyromegaly. CARDIOVASCULAR: Regular rate and rhythm without murmurs, gallops, or rubs. RESPIRATORY: Clear to auscultation. Breath sounds equal bilaterally. No wheezes, rales, or rhonchi. SKIN: warm, Dry, intact with no suspicious lesions or rash, good texture and turgor. NEURO: awake, alert, and oriented to person, place and time. There were no obvious focal neurologic abnormalities. EXTREMITIES: tenderness to proximal aspect R 5th toe and distal aspect 3rd, 4th, 5th metatarsals. bruising and swelling noted. BACK: Nontender without deformity. No CVA tenderness. Course Course Level of Care: Express Care Visit Vital Signs Vital signs: Vital Signs Temperature 36.4
== END 2022-04-04 19:20 | disposition home or self-care (01) ==
PROVIDERS: Emergency Provider Nurse Practitioner Family; PCP Internal Medicine
DX: S92.514A Nondisplaced fracture of proximal phalanx of right lesser toe(s), initial encounter for closed fracture (principal); W20.8XXA Other cause of strike by thrown, projected or falling object, initial encounter; F41.9 Anxiety disorder, unspecified; K21.9 Gastro-esophageal reflux disease without esophagitis
CPT/HCPCS: 73630; 99213; G0463

== ENCOUNTER 2022-05-14 17:25 | Outpatient (CLI) | payer OTHER, SELFPAY ==
[2022-05-14 17:50] LABS: Alanine Aminotransferase 17 U/L (6-35); Albumin Level 4.5 g/dL (3.5-5.1); Alkaline Phosphatase 66 U/L (38-126); Aspartate Amino Transferase 24 U/L (14-36); Bilirubin,Total 0.2 mg/dL (0.2-1.3)
== END 2022-05-14 17:26 | disposition home or self-care (01) ==
LOC: ANHLAB 17:27
PROVIDERS: PCP Internal Medicine; Visit Provider Podiatrist Foot & Ankle Surgery
DX: B35.1 Tinea unguium (principal)
CPT/HCPCS: 36415; 80076

== ENCOUNTER 2022-05-18 14:26 | Emergency (ER) | payer OTHER, SELFPAY ==
--- NOTE | 2022-05-18 14:28 | ED.FEMALEGU ---
HPI - Female Genitourinary General Chief complaint: Urogenital-Female Stated complaint: burning urination,right side pain Time Seen by Provider: 05/18/22 14:28 Source: patient Mode of arrival: ambulatory Limitations: no limitations History of Present Illness HPI Narrative: Ms. Espino is a 57-year-old female patient presenting to the clinic today with complaints of right-sided flank pain and burning with urination. She reports symptoms of been ongoing for 2 days. She reports yesterday she started with burning with urination and today she is having right-sided flank pain with urinary frequency and urgency. She reports that she has felt feverish but has been taking Tylenol. Has not taken her temperature. She is 38 ?C in the clinic today Related Data Home Medications Medication Instructions Recorded Confirmed ergocalciferol (vitamin D2) 1,250 50,000 unit PO WEEKLY 08/04/20 05/18/22 mcg (50,000 unit) capsule escitalopram oxalate 20 mg tablet 20 mg PO DAILY 01/10/21 05/18/22 omeprazole 20 mg capsule,delayed 1 cap PO BID 04/04/22 05/18/22 release Allergies Allergy/AdvReac Type Severity Reaction Status Date / Time Sulfa (Sulfonamide Allergy Severe Hives, Verified 05/18/22 14:31 Antibiotics) blisters mouth scalded Review of Systems Review of Systems: Pertinent positives per HPI. Patient denies any rash, headache, visual changes, dizziness, cough, runny nose, sore throat, shortness of breath, chest pain, palpitations, nausea, vomiting, diarrhea, constipation PMFSH Past Medical History Medical History Anxiety Closed fracture of nasal bone Colon cancer screening Dysphagia GERD (gastroesophageal reflux disease) History of blood pressure problems Surgical History Surgical History History of sinus surgery 2020 Family History Family History Mother Heart disease Hypertension High cholesterol Father Hypertension High cholesterol Carcinoma of colon Malignant neoplasm of prostate Social History Social History Smoking status: Never smoker Second hand tobacco smoke exposure: No Alcohol intake: never Substance use: never Gender identity (if verbalized by the patient): Female Spiritual care concerns: No Comments At the time of my signature, I reviewed and agree with the nursing past medical, surgical, social, and family history. There is no relevant family history pertinent to the patient complaint. Exam Narrative: General: Well-developed, well nourished, in no apparent distress. Head: Normocephalic, atraumatic. Cardio: Regular rate and rhythm, s1 and s2 normal, no murmur appreciated. Resp: Clear to auscultation bilaterally, no rhonchi, rales, wheezing or rubs. Abdomen: Soft, pliable, bowel sounds present in all quadrants,tender to palpation over the suprapubic bladder, no organomegly, positive right CVAT tenderness. Course Course Emergency Course: Portions of this record may have been created with voice recognition software. Level of Care: Express Care Visit Vital Signs Vital signs: Vital signs reviewed MDM - Female Genitourinary MDM Narrative Medical decision making narrative: At the time of visit patient is resting comfortably on the exam table. I suspect the patient has right-sided pyelonephritis. Supportive measures were discussed with the patient and prescription for ciprofloxacin was sent to the pharmacy. Differential Diagnosis Differential diagnosis: Likely urinary tract infection, cystitis and other (Pyelonephritis) Discharge Plan Discharge Clinical Impression: Pyelonephritis Patient Disposition: Home, Self-Care Condition: Stable Instructions: Antibiotic Form, Kidney Infection (ED) Additional
[2022-05-18 14:39] VITALS: BP 119/67; PULSE 92; RESP 16; TEMP 38; O2SAT 99
== END 2022-05-18 14:53 | disposition home or self-care (01) ==
PROVIDERS: Emergency Provider Nurse Practitioner Family; PCP Internal Medicine
DX: N12 Tubulo-interstitial nephritis, not specified as acute or chronic (principal); K21.9 Gastro-esophageal reflux disease without esophagitis; F41.9 Anxiety disorder, unspecified
CPT/HCPCS: 81003; 87077; 87086; 87186; 99213; G0463

== ENCOUNTER 2022-12-15 10:34 | Emergency (ER) | payer OTHER, SELFPAY ==
[2022-12-15 11:04] VITALS: BP 148/78; PULSE 96; RESP 12; TEMP 36.3; O2SAT 100
--- NOTE | 2022-12-15 12:16 | ED.URI ---
HPI - URI/Sore Throat General Chief Complaint: Upper Respiratory Infection Stated Complaint: Sinus Time Seen by Provider: 12/15/22 12:17 Source: patient, RN notes reviewed and old records reviewed Mode of arrival: ambulatory Limitations: no limitations History of Present Illness HPI Narrative: 57-year-old female presents to the [facility] with complaints of sinus congestion for 19 days. Has tried exos-pif-[id number] products. States that she thought it was just her allergies but the symptoms got worse over the last couple of days. Denies fevers. Onset (ago): day(s) () Related Data Home Medications Medication Instructions Recorded Confirmed ergocalciferol (vitamin D2) 1,250 50,000 unit PO WEEKLY 08/04/20 12/15/22 mcg (50,000 unit) capsule escitalopram oxalate 20 mg tablet 20 mg PO DAILY 01/10/21 12/15/22 Allergies Allergy/AdvReac Type Severity Reaction Status Date / Time Sulfa (Sulfonamide Allergy Severe Hives, Verified 12/15/22 11:45 Antibiotics) blisters mouth scalded Review of Systems Review of Systems: All systems reviewed & are unremarkable except as noted in HPI and below Constitutional: Constitutional: Reports no additional constitutional complaints Eyes: Eyes: Reports no additional eye complaints ENT: Reports as per HPI Cardiovascular: Cardiovascular: Reports no additional cardiovascular complaints, Denies chest pain and Denies dyspnea Respiratory: Respiratory: Reports no additional respiratory complaints, Denies chest congestion, Denies cough and Denies dyspnea Gastrointestinal: Gastrointestinal: Reports no additional gastrointestinal complaints, Denies abdominal pain, Denies nausea and Denies vomiting Musculoskeletal: Musculoskeletal: Reports no additional musculoskeletal complaints Integumentary/Breasts: Skin/Breast: Reports system reviewed and no additional complaints, except as docu Neurologic: Reports system reviewed and no additional complaints, except as documented Psychiatric: Psychiatric: Reports no additional psychiatric complaints Allergic/Immunologic: Allergic/Immunologic: Reports no additional allergic/immunologic complaints [facility] Past Medical History Medical History Anxiety Closed fracture of nasal bone Colon cancer screening Dysphagia GERD (gastroesophageal reflux disease) History of blood pressure problems Surgical History Surgical History History of sinus surgery 2020 Family History Family History Mother Heart disease Hypertension High cholesterol Father Hypertension High cholesterol Carcinoma of colon Malignant neoplasm of prostate Social History Social History Smoking status: Never smoker Second hand tobacco smoke exposure: No Alcohol intake: never Substance use: never Living arrangements: alone Gender identity (if verbalized by the patient): Female Spiritual care concerns: No Comments At the time of my signature, I reviewed and agree with the nursing past medical, surgical, social, and family history. There is no relevant family history pertinent to the patient complaint. Exam Const: General: cooperative, healthy appearing, comfortable, no acute distress, well developed, alert and well nourished Nutritional Appearance: well nourished Orientation/consciousness: patient oriented x3 Limitations: no limitations HENMT: Head: normal to inspection Ears: hearing grossly normal bilaterally and external ears normal Face/Nose/Sinus: Normal external nose present, Normal nares present, Abnormal mucous membranes and turbinates present boggy bilateral; not erythematous and normal facial exam Face and sinus: normal facial exam, face symmetric, no ecchymosis, no erythema and sinus tenderness Mouth: Yes Normal oral and
== END 2022-12-15 12:28 | disposition home or self-care (01) ==
PROVIDERS: Emergency Provider Nurse Practitioner; PCP Internal Medicine
DX: J32.9 Chronic sinusitis, unspecified (principal); K21.9 Gastro-esophageal reflux disease without esophagitis; F41.9 Anxiety disorder, unspecified
CPT/HCPCS: 87081; 87880; 99213; G0463

== ENCOUNTER 2024-04-06 07:44 | Outpatient (CLI) | payer OTHER, SELFPAY ==
--- NOTE | ~2024-04-06 | MM_ITS ---
EXAMINATION: MM screening shilpa BI w saud HISTORY: Screening TECHNIQUE: Craniocaudal and mediolateral oblique 3-D tomosynthesis images were obtained and synthetic 2-D images were generated. CAD analysis was submitted and interpreted. COMPARISON: 05/10/2021 BREAST PARENCHYMAL COMPOSITION: FINDINGS: There are developing nodular asymmetries in the upper inner quadrant of the right breast. The left breast is stable without evidence for malignancy. IMPRESSION: 1. Developing nodular asymmetries of the right breast. 2. Additional mammographic views and possible breast ultrasound are recommended. BI-RADS Category 0: Incomplete: Needs additional imaging evaluation. Reviewed, dictated and finalized at location B. IMPRESSION: 1. Developing nodular asymmetries of the right breast. 2. Additional mammographic views and possible breast ultrasound are recommended . BI-RADS Category 0: Incomplete: Needs additional imaging evaluation.
== END 2024-04-06 07:45 | disposition home or self-care (01) ==
LOC: ANHIMG 07:45
PROVIDERS: PCP Internal Medicine; Visit Provider Nurse Practitioner Obstetrics & Gynecology
DX: Z12.31 Encounter for screening mammogram for malignant neoplasm of breast (principal); N64.89 Other specified disorders of breast
CPT/HCPCS: 77063; 77067

== ENCOUNTER 2024-05-05 12:08 | Outpatient (CLI) | payer OTHER, SELFPAY ==
--- NOTE | ~2024-05-05 | MMUS_ITS ---
EXAMINATION: MM diagnostic shilpa RT w saud, US breast RT complete HISTORY: Follow-up right breast asymmetry TECHNIQUE: Additional 3-D tomosynthesis images of the right breast were performed and synthetic 2-D i mages were generated. CAD analysis was submitted and interpreted. High resolution complete right rios st ultrasound was performed. COMPARISON: Comparison to multiple prior studies sequentially, with oldest reviewed study dated 05/10. BREAST PARENCHYMAL COMPOSITION: Dense: The breasts are heterogeneously dense, which may obscure small masses FINDINGS: MAMMOGRAPHIC FINDINGS: The right breast is stable with spot compression and mediolateral views of the right breast compared with prior study dated 05/10/2021. Nodular asymmetries are unchanged. No new masses, calcifications or architectural distortion. ULTRASOUND: Complete US of all 4 quadrants of the right breast and retroareolar region was reviewed. Normal heter ogeneous echotexture of the right breast without discrete solid or cystic mass. IMPRESSION: 1. No evidence for malignancy in the right breast. 2. Routine yearly screening mammogram and regular clinical breast examination are recommended. BI-RADS Category 1: Negative Reviewed, dictated and finalized at location B. IMPRESSION: 1. No evidence for malignancy in the right breast. 2. Routine yearly screening mammogram and regular clinical breast examination a re recommended. BI-RADS Category 1: Negative
== END 2024-05-05 12:09 | disposition home or self-care (01) ==
LOC: ANHIMG 12:09
PROVIDERS: PCP Family Medicine; Visit Provider Nurse Practitioner
DX: R92.2 Inconclusive mammogram (principal)
CPT/HCPCS: 76641; 77061; 77065; G0279

== ENCOUNTER 2024-06-10 06:49 | Outpatient (CLI) | payer OTHER, SELFPAY ==
[2024-06-10 07:40] LABS: Hematocrit 41.2 % (37.0-47.0); Hemoglobin 12.9 g/dL (12.0-15.0); Mean Corpuscular HGB Conc 31.3 g/dl (32-36); Mean Corpuscular Hemoglobin 29.1 pg (26-34); Platelet Count Result 307 k/mm3 (150-375); Red Blood Count 4.43 M/mm3 (4.2-5.4); Red Cell Distribution Width 13.2 % (11.5-14.5); White Blood Count 4.8 K/mm3 (4.5-10.0)
[2024-06-10 07:53] LABS: Alanine Aminotransferase 16 U/L (6-35); Albumin Level 4.3 g/dL (3.5-5.1); Alkaline Phosphatase 69 U/L (38-126); Anion Gap 8 mmol/L (4-12); Aspartate Amino Transferase 23 U/L (14-36); Bilirubin,Total 0.2 mg/dL (0.2-1.3); Blood Urea Nitrogen 15 mg/dL (7-17); Carbon Dioxide 28 mmol/L (22-30); Chloride 101 mmol/L (98-107); Cholesterol 224 mg/dL (0-200); Estimated Glomerular Filt Rate > 60; Glucose 87 mg/dL (65-110); HDL Direct 78 mg/dL; Potassium 4.1 mmol/L (3.4-5.0); Sodium 137 mmol/L (137-145); Triglycerides 61 mg/dL (<150)
[2024-06-10 08:04] LABS: LDL Cholesterol Direct 110 mg/dL
[2024-06-10 08:51] LABS: Vitamin D 25 Hydroxy 50.3 ng/mL
== END 2024-06-10 06:50 | disposition home or self-care (01) ==
LOC: ANHLAB 06:51
PROVIDERS: PCP Family Medicine; Visit Provider Nurse Practitioner
DX: Z00.00 Encounter for general adult medical examination without abnormal findings (principal); I10 Essential (primary) hypertension; E55.9 Vitamin D deficiency, unspecified
CPT/HCPCS: 36415; 80053; 80061; 82306; 84443; 85027

== ENCOUNTER 2024-07-23 14:35 | Outpatient (CLI) | payer OTHER, SELFPAY ==
--- NOTE | ~2024-07-23 | MR_ITS ---
EXAMINATION: MR knee LT wo con DATE: 07/23/2024 15:02 INDICATION: Left knee pain. TECHNIQUE: Magnetic resonance imaging (MRI) of the left knee was performed without intravenous contra st. Sequences included axial PD-weighted FS FSE, coronal PD-weighted FSE and PD-weighted FS FSE, sagi ttal PD-weighted FSE, and sagittal T2-weighted FS FSE. COMPARISON: Left knee radiographs 05/17/2024 FINDINGS: Medial compartment: There is a complex tear of body and posterior horn of medial meniscus. There is cartilage surface irr egularity of tibial condyle. Femoral cartilage is normal. Lateral compartment: Lateral meniscus is normal. Lateral compartment cartilage is normal. Patellofemoral compartment: There is shallow partial-thickness cartilage loss of patellar lateral facet. There is cartilage surfa ce irregularity of trochlea. Ligaments and tendons: The anterior and posterior cruciate ligaments are normal. There are changes of prior sprains of media l collateral ligament and fibular collateral ligament characterized by thickening and increased signa l intensity proximally. There is mild patellar tendinopathy. Fluid: There is a small knee joint effusion. There is mild prepatellar and superficial infrapatellar bursiti s. IMPRESSION: 1. Mild chondrosis of medial and patellofemoral compartments. 2. Tear of medial meniscus. Reviewed, dictated and finalized at location A.
== END 2024-07-23 14:36 | disposition home or self-care (01) ==
PROVIDERS: PCP Family Medicine; Visit Provider Nurse Practitioner Family
DX: M22.42 Chondromalacia patellae, left knee (principal); S83.242A Other tear of medial meniscus, current injury, left knee, initial encounter; X58.XXXA Exposure to other specified factors, initial encounter
CPT/HCPCS: 73721

== ENCOUNTER 2024-10-14 17:08 | Emergency (ER) | payer MEDICAID, SELFPAY ==
--- NOTE | ~2024-10-14 | XR_ITS ---
XR chest 2V 10/14/2024 17:30 Indication: Cough and congestion Procedure: 2 view chest Comparison: No prior studies for comparison. Findings: There is a nodular opacity in the right lung base. There is linear atelectasis/scarring in the right lung base. Heart size normal. Possible small left effusion. No pneumothorax. Impression: 1: Nodular opacity right lung base. Correlation with CT chest without contrast recommended on a nonem ergent basis. 2: Right basilar atelectasis/scarring. Reviewed, dictated and finalized at location A. RINARY SURGERY TECHNICIAN Impression: 1: Nodular opacity right lung base. Correlation with CT chest without contrast recommended on a nonemergent basis. 2: Right basilar atelectasis/scarring.
--- NOTE | 2024-10-14 17:10 | ED.URI ---
HPI - URI/Sore Throat General Chief Complaint: Upper Respiratory Infection Stated Complaint: shortness of breath Time Seen by Provider: 10/14/24 17:17 Source: patient, RN notes reviewed and old records reviewed Mode of arrival: ambulatory Limitations: no limitations History of Present Illness HPI Narrative: 59-year-old female presents to the [facility] with complaints of 10 days of sinus congestion, 4-5 days ago states it is ?moved to or lungs? and has developed a cough. States that she had a sleep sitting up yesterday due to the shortness of breath and the coughing. Denies fevers. Denies chest pain Onset (ago): day(s) (10, worse 4-5 days ago) Related Data Home Medications ?Medication ?Instructions ?Recorded ?Confirmed ?Last Taken ?Type ergocalciferol (vitamin D2) 1,250 50,000 unit PO WEEKLY 08/04/20 10/14/24 01/15/22 History mcg (50,000 unit) capsule escitalopram oxalate 20 mg tablet 20 mg PO DAILY 01/10/21 10/14/24 01/23/22 07:00 History Allergies Allergy/AdvReac Type Severity Reaction Status Date / Time Sulfa (Sulfonamide Allergy Severe Hives, Verified 10/14/24 17:11 Antibiotics) blisters mouth scalded Review of Systems Review of Systems: All systems reviewed & are unremarkable except as noted in HPI and below Constitutional: Constitutional: Reports no additional constitutional complaints ENT: Reports as per HPI Cardiovascular: Cardiovascular: Reports no additional cardiovascular complaints, Denies chest pain and Denies dyspnea Respiratory: Respiratory: Reports as per HPI, Reports chest congestion, Reports cough and Denies dyspnea Musculoskeletal: Musculoskeletal: Reports no additional musculoskeletal complaints Integumentary/Breasts: Skin/Breast: Reports system reviewed and no additional complaints, except as docu [facility] Past Medical History Medical History Essential hypertension Left knee pain Left knee DJD Osteoarthritis of carpometacarpal (CMC) joint of left thumb Medial meniscus tear Closed fracture of nasal bone Right knee pain Colon cancer screening Dysphagia GERD (gastroesophageal reflux disease) Anxiety History of blood pressure problems Surgical History Surgical History History of sinus surgery 2020 Family History Family History Mother Heart disease Hypertension High cholesterol Father Hypertension High cholesterol Carcinoma of colon Malignant neoplasm of prostate Social History Social History Smoking status: Never smoker Second hand tobacco smoke exposure: No Alcohol intake: never Substance use: never Current Housing: Decline to Answer Concerned About Future Housing: Decline to Answer Difficulty Paying Gas/Electric Bills: Decline to Answer Difficulty Paying for Meds: Decline to Answer Currently Unemployed: Decline to Answer Education: Decline to Answer Difficulty w/ Childcare or Family Care: Decline to Answer Living arrangements: alone Occupation/Education: occupation 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 There is no relevant family history pertinent to the patient complaint. Exam Const: General: cooperative, healthy appearing, comfortable, no acute distress, well developed, alert and well nourished Nutritional Appearance: well nourished Orientation/consciousness: patient oriented x3 Limitations: no limitations HENMT: Head: normal to inspection Ears: hearing grossly normal bilaterally, external ears normal, TM's normal bilaterally, EAC's normal, mastoids normal and no periauricular adenopathy Throat: posterior oropharynx normal, uvula midline and no uvular edema Eyes: General: appearance normal, both eyes and all related structures Alignment and Position: alignment normal Neck: Neck: normal visual inspection, full ROM, no lymphadenopathy and no meningeal signs Chest: Chest palpation & inspection: normal inspection of the chest Resp: Effort & Inspection: normal respiratory effort and able to speak in complete sentences Auscultation: no crackles, no rales, no rhonchi and wheezes scattered wheezes Cardio: Rate: regular rate Skin: General skin exam: normal color and no rashes or lesions noted Neuro: General: patient oriented x3, gait normal, moves all extremities and no meningeal signs Cognition (Neuro): normal cognition Speech: normal speech Gait exam (Neuro): Normal gait present Extrem: General: normal to inspection, full ROM, capillary refill normal and normal gait Psych: Appearance: grossly normal and well kempt Mental Status: mental status grossly normal Speech and movement: Normal speech and movement present and Clear speech present Affect: normal affect Attitude: cooperative Course Course Level of Care: Express Care Visit Vital Signs Vital signs: Vital Signs Temperature 98.0 F 10/14/24 17:16 Pulse Rate 85 10/14/24 17:16 Respiratory Rate 16 10/14/24 17:16 Blood Pressure 144/78 H 10/14/24 17:16 Pulse Oximetry 98 10/14/24 17:16 Oxygen Delivery Room Air 10/14/24 17:16 Temperature 98.0 F 10/14/24 17:16 Pulse Rate 85 10/14/24 17:16 Respiratory Rate 16 10/14/24 17:16 Blood Pressure 144/78 H 10/14/24 17:16 Pulse Oximetry 98 10/14/24 17:16 Oxygen Delivery Room Air 10/14/24 17:16 Reviewed MDM - URI/Sore Throat MDM Narrative Medical decision making narrative: patient sitting in exam room, nontoxic and in no distress. Vitals stable. patient presents for 10 day of sinus sx and 4-5 days of cough. patient xray with nodule, recommend follow up patient appropriate with outpatient treatment with close follow up strict S/S to proceed to the ER discussed. Discharge instructions reviewed with patient,? as well as provided in writing per nursing staff. The instructions also include specific and strict return/GO TO THE ER as well as f/u information. All questions have been answered, and the patient deny any further questions with discharge and discharge plan. Some parts of this dictation were generated by voice recognition software and may contain typographical and/or grammatical inaccuracies. Differential Diagnosis Differential diagnosis: Likely upper respiratory infection, otitis media, sinusitis, viral infection and bronchitis Imaging Data Radiologist's impression: XR chest 2V 10/14/2024 17:30 Indication: Cough and congestion Procedure: 2 view chest Comparison: No prior studies for comparison. Findings: There is a nodular opacity in the right lung base. There is linear atelectasis/scarring in the right lung base. Heart size normal. Possible small left effusion. No pneumothorax. Impression: 1: Nodular opacity right lung base. Correlation with CT chest without contrast recommended on a nonemergent basis. 2: Right basilar atelectasis/scarring. Critical Care Time Critical Care Time Critical Care Time: No Discharge Plan Discharge Clinical Impression: Bronchitis, Lung nodule, Atelectasis Patient Disposition: Home, Self-Care Condition: Stable Instructions: Antibiotic Form, Acute Bronchitis (ED), Atelectasis (ED) Additional Instructions: Your x-ray recommended follow-up with your primary care provider for further evaluation of a lung nodule. This can be done on an outpatient basis. Today your blood pressure was 144/78 Take the antibiotics, steroid and inhaler as prescribed If you develop new or worsening symptoms please go directly to the emergency room Patient Language: Slovak Prescriptions: New doxycycline monohydrate 100 mg tablet 100 mg PO BID Qty: 14 0RF albuterol sulfate 90 mcg/actuation HFA aerosol inhaler 2 puff inhalation QID PRN (Reason: shortness of breath or wheezing) Qty: 6.7 0RF (DME) Aerochamber MV Spacer See Rx Instructions .Route Qty: 1 0RF Rx Instructions: As directed prednisone 20 mg tablet See Rx Instructions .Route .COMPLEX Qty: 9 0RF Rx Instructions: Take 40 mg daily for 3 days, 20 mg daily for 3 days No Action ergocalciferol (vitamin D2) 1,250 mcg (50,000 unit) capsule 50,000 unit PO WEEKLY omeprazole 40 mg capsule,delayed release(DR/EC) 40 mg PO DAILY Qty: 90 4RF escitalopram oxalate 20 mg Tablet 20 mg PO DAILY fluticasone propionate 50 mcg/actuation spray,suspension See Rx Instructions .ROUTE .COMPLEX Qty: 48 12RF Dose Instruction: PLACE 1 TO 2 SPRAYS INTO EACH NOSTRIL TWICE DAILY Rx Instructions: PLACE 1 TO 2 SPRAYS INTO EACH NOSTRIL TWICE DAILY lisinopril 20 mg tablet See Rx Instructions .ROUTE .COMPLEX Qty: 90 1RF Dose Instruction: TAKE 1 TABLET BY MOUTH EVERY DAY Rx Instructions: TAKE 1 TABLET BY MOUTH EVERY DAY omeprazole 40 mg capsule,delayed release(DR/EC) See Rx Instructions .ROUTE .COMPLEX Qty: 30 3RF Dose Instruction: TAKE 1 CAPSULE BY MOUTH EVERY DAY Rx Instructions: TAKE 1 CAPSULE BY MOUTH EVERY DAY Follow-up/Referrals: Chuy Jones MD [Primary Care Provider] - 1 Week (Lung nodule x-ray, follow-up [facility]) Clint Sánchez APRN [Advanced Practice Nurse] - 1 Week ([facility] follow up. Blood pressure check. Xray lung nodule) Stand Alone Forms: Work/School Release IP Time of Disposition: 17:45
[2024-10-14 17:16] VITALS: BP 144/78; PULSE 85; RESP 16; TEMP 36.7; O2SAT 98
== END 2024-10-14 17:53 | disposition home or self-care (01) ==
PROVIDERS: Emergency Provider Nurse Practitioner; PCP Family Medicine
DX: J40 Bronchitis, not specified as acute or chronic (principal); R91.1 Solitary pulmonary nodule; J98.11 Atelectasis; I10 Essential (primary) hypertension; K21.9 Gastro-esophageal reflux disease without esophagitis; F41.9 Anxiety disorder, unspecified; M17.12 Unilateral primary osteoarthritis, left knee; M18.12 Unilateral primary osteoarthritis of first carpometacarpal joint, left hand
CPT/HCPCS: 71046; 99213; G0463

== ENCOUNTER 2024-10-30 08:13 | Outpatient (CLI) | payer MEDICAID, SELFPAY ==
--- NOTE | ~2024-10-30 | CT_ITS ---
EXAMINATION: CT diagnostic chest wo con DATE: 10/30/2024 08:33 INDICATION: R93.89 - Abnormal findings on diagnostic imaging of other... TECHNIQUE: Computed tomography (CT) of the chest was performed without intravenous contrast. Automate d exposure control and iterative reconstruction technique were employed. The dose-length product was 143.29 mGy-cm. COMPARISON: X-ray chest 10/14/2024. FINDINGS: CHEST: Thoracic aorta: No significant dilation or calcification. Lung parenchyma and airways: Minimal biapical pleural scarring. Scattered nodular opacities in the ri ght lung measuring less than 6 mm. Calcified right lower lobe granuloma. Minimal bibasilar scar. Amaya nt airways. Thoracic inlet, axillae and chest wall: No thyroid or soft tissue mass. No axillary lymphadenopathy. Mediastinum: No mass or lymphadenopathy. Heart and pericardium: Normal heart size. No pericardial effusion. Coronary artery calcifications: Absent. Pleura: No effusion or mass. Upper abdomen: No significant finding. Thoracic bones: No acute osseous finding in the chest. IMPRESSION: No acute thoracic process detected. No CT finding that corresponds to the radiographic abnormality, prior findings likely related to atel ectasis or resolved infection/inflammation. Multiple small pulmonary nodules measuring less than 6 mm, likely representing granulomatous disease. No additional imaging is recommended this time unless the patient is at high risk in which case an o ptional low-dose noncontrast CT of the chest could be performed in one year. Reviewed, dictated and finalized at location K. ING MACHINE TENDER IMPRESSION: No acute thoracic process detected. No CT finding that corresponds to the radiographic abnormality, prior findings likely related to atelectasis or resolved infection/inflammation. Multiple small pulmonary nodules measuring less than 6 mm, likely representing granulomatous disease. No additional imaging is recommended this time unless th e patient is at high risk in which case an optional low-dose noncontrast CT of the chest could be performed in one year.
--- OUTSIDE RECORDS SUMMARY | 2024-10-30 08:17 | XMS_ITS | Clinical Summary ---
Author Organization [facility] Address [address], [address] [address] Phone Care Team Providers Care Mobile Engineer Name Role Phone Unavailable Primary Care Provider Unavailabl e Social History Tobacco Use Types Packs/Day Years Used Date Smoking Tobacco: Never Assessed Comments Unknown Sex and Gender Information Value Date Recorded Sex Assigned at Not on file Legal Sex Female 12:00 PM CDT Gender Identity Not on file Sexual Orientation Not on file Plan of Treatment Health Maintenance Due Date Last Done Comments Hepatitis C Virus (HCV) Screening 1965 TdaP Immunization 1965 Hepatitis B Immunization (1 of 3 - 19+ 3-dose series) 1984 Pap Smear 1986 Cervical Cancer Screening (CCS) 1995 HPV/Cotest 1995 Colonoscopy 2010 Colorectal Cancer Screening 2010 Cologuard 2015 Immunochemical Fecal Occult Blood 2015 Mammogram 2015 Pneumococcal Immunization (5 0+ years) (1 of 1 - PCV) 2015 Zoster Immunization (1 of 2) 2015 Influenza Immunization (#1) 2024 SARS-COV-2 Immunization ( - 2023- season) 2024 Respiratory Syncytial Virus (RSV) Immunization (Adult) (1 - 1-dose 75+ series) 2040 Meningococcal Immunization (ACWY) Aged Out No longer eligible based on patient's age to complete this topic Pneumococcal Immunization Combined Aged Out No longer eligible based on patient's age to complete this topic Rotavirus Immunization Aged Out No lo nger eligible based on patient's age to complete this topic Insurance MEDICAID [employer]
--- OUTSIDE RECORDS SUMMARY | 2024-10-30 08:17 | XMS_ITS | Encounter Summary ---
Author Organization [facility] Address 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
--- OUTSIDE RECORDS SUMMARY | 2024-10-30 08:17 | XMS_ITS | Continuity of Care Document ---
Author Organization [facility] Address [address] [place] [address] Phone Care Team Providers Care Eyeglass Frame Truer Name Role Phone Hallie Haynes Unavailable Unavailable Procedures Procedure Date Special Reports Or Forms Advance Directives Directive Yes / No Effective Date File Name No Information Encounters Encounter Description Practice Location Reason(s) For Visit Diagnoses Date Provider Providers Copied on Encounter [facility], [address], [place], [place], [id number], [place] tel:[phone] [facility] No Information [address]. [address] , [address], [place], [address], [place]. tel:[phone] Family History Family Member Type Diagnosis Age At Onset No Information Payers Payer name Insurance type Covered republican ID Authoriza tion(s) No Information Social History Type Description Quantity Date Captured Comments Sex Female Smoking Status No Information Chief Complaint And Reason For Visit No Information Reason For Referral Reason For Referral No Information History Of Present Illness Encounter Date Complaint History Of Prese nt Illness No Information Functional Status Date Functional Assessmen t No Information Instructions Date Instruction Additional Infor mation No Information Assessments Type Assessment Date No Information Patient Care Teams Name Effective Dates (start - stop) Status Members No Information
--- OUTSIDE RECORDS SUMMARY | 2024-10-30 08:17 | XMS_ITS | Encounter Summary ---
Author Organization [facility] Address 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
--- OUTSIDE RECORDS SUMMARY | 2024-10-30 08:17 | XMS_ITS | Encounter Summary ---
Author Organization [facility] Address 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
--- OUTSIDE RECORDS SUMMARY | 2024-10-30 08:17 | XMS_ITS | Encounter Summary ---
Author Organization [facility] Address [address] [place] [address] Care Team Providers Care Brick Burner Name Role Phone Unavailable Primary Care Provider Unavailabl e Encounter Details Date Type Department Care Team (Late st Contact Info) Description 08/31/1998 Outpatient Historical [facility] Jesus Lin MD [address] [place] [address] Unspecified sinusitis (chronic) (Primary Dx) Social History Tobacco Use Types Packs/Day Years Used Date Smoking Tobacco: Never Assessed Comments Unknown Sex and Gender Information Value Date Recorded Sex Assigned at Not on file Legal Sex Female 3:16 AM [employer] Gender Identity Not on file Sexual Orientation Not on file documented as of this encounter Plan of Treatment Not on file documented as of this encounter Visit Diagnoses Diagnosis Unspecified sinusitis (chronic)- Primary documented in this encounter
--- OUTSIDE RECORDS SUMMARY | 2024-10-30 08:17 | XMS_ITS | Data Portability ---
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 Patient will come back in a year unless there are new symptoms. [email or web address] Not available 05/26/2020 15:11:33 02/02/2021 02/02/2021 plan on adding wellbutrin, if this combo doesn't work, may dc and try cymbalta or effexor, f/u apr Not available 02/02/2021 17:00:37 09/12/2021 09/12/2021 Annual gynecological exam performed. Patient will come back in a year unless there are new symptoms. Suggest Calcium with Vitamin D if not eating in diet. Patient advised to get annual flu shot. Recommend yearly physicals and preform monthly breast exams. Genetic testing is available for patients with family history of cancer. Engage in safe sexual practices, use condoms. Encouraged to have daily exercise. Avoid tobacco and illicit drugs, moderation of alcohol. If BMI greater than 25 dietary consult advised. If you have any questions please call or email. refer to ortho for right knee injury rf meds x 1 yesr Not available 09/14/2021 09:28:43 09/18/2023 09/18/2023 Annual gynecological exam performed. Patient will come back in a year unless there are new symptoms. [email or web address] Not available 09/18/2023 18:22:54 Plan of Treatment Reminders Order Date Submit Date Provider Last Modified By Organization Details Last Modified Time Details Appointments None recorded. Lab vitamin D, 25-hydroxy , total, serum 2022 023 [facility] (Lab), [address], [place], [address], 3 04:59:45 HbA1c (hemoglobi n A1c), blood 2022 023 [facility] (Lab), [address], [place], [address], 3 04:59:45 CBC w/ auto diff 2022 023 [facility] (Lab), [address], [place], [address], 3 04:59:43 lipid panel, blood 2022 023 [facility] (Lab), [address], [place], [address], 3 04:59:44 CMP, serum or plasma 2022 023 [facility] (Lab), [address], [place], [address], 3 04:59:44 TSH, serum or plasma 2022 023 [facility] (Lab), [address], [place], [address], 3 04:59:44 urinalysis , dipstick 2023 024 [email or web address] [place], [address], [address], [place], [address], 4 12:51:38 Referral None recorded. Procedures None recorded. Surgeries None recorded. Imaging MAMMO, screening, bilateral [address] [facility], [address], [place], [address], 4 13:58:46 MAMMO, diagnostic , unilateral - right 2023 024 [facility], [address], [address], [place], [address], 4 17:35:51 US, breast, unilateral 2023 024 [facility], [address], [address], [place], [address], 5 05:01:40 Medication Orders Lexapro 10 mg tablet 2019 020 [email or web address] [facility][id number], [address] [place], [address], 1 16:28:11 Vitamin D2 1,250 mcg (50,000 unit) capsule 2019 020 [facility] #[id number], [address] [place], [address], 0 15:30:38 Wellbutrin XL 150 mg 24 hr tablet, extended release 2020 [address] [id number], [address], [place], [address], 1 16:47:46 Lexapro 20 mg tablet 2020 021 [facility] #[id number], [address], [place], [address], 1 16:48:05 Lexapro 20 mg tablet 2020 021 [facility] #[id number], [address], [place], [address], 1 09:29:26 Wellbutrin XL 150 mg 24 hr tablet, extended release 2020 021 [facility] #[id number], [address], [place], [address], 1 09:29:27 bupropion HCl XL 150 mg 24 hr tablet, extended release 2022 [address] [id number], [address], [place], [address], 3 18:31:38 escitalopr am 20 mg tablet [address] [id number], [address], [place], [address], 3 18:31:38 ciprofloxa rosalina 500 mg tablet [address] [id number], [address], [place], [address], 4 12:55:11 Patient TargetsNo targets recorded. Patient Instructions Encounter Date Encounter Id Patient Instructions Last Modified By Organization Details Last Modified Time 05/26/2020 [id number] mammogram order given, GI referall for acid reflux, pt requesting to try another med for anxiety and hot flashes, seems to having blurred vision on paxil. when stopped for a few days vision was wnl. reviewed se risks and benefits Suggest Calcium with Vitamin D if not eating in diet. Patient advised to get annual flu shot. Recommend yearly physicals and preform monthly breast exams. Genetic testing is available for patients with family history of cancer. Engage in safe sexual practices, use condoms. Encouraged to have daily exercise. Avoid tobacco and illicit drugs, moderation of alcohol. If BMI greater than 25 dietary consult advised. If you have any questions please call or email. Not available 05/26/2020 15:37:46 Reason for Referral None Reported. Results Created Date Observation Date Name Description Value Unit Range Abnormal Flag Note LastModifiedBy Organization Detail LastModifiedTime 05/26/20 20 05/29/2020 pap, LB Pap test thin prep Negati ve for Intrae pithel ial Lesion or Malign savannah normal ACCES DANIELA #: [id number] Sourc e: Cervi german/E ndoce rvica l LMP: 2014 Date Taken : 05/26 Speci men Type: ThinP rep Vial Date Repor paco: 2019 Clini german Data: Cytot ech: Kaitl in Valentin Arriaza , CT( CP) Date Repor paco: 2019 Speci men Adequ acy: Satis facto ry for evalu ation Endoc ervic al/tr ansfo rmati on zone compo nent prese nt Gener al Categ oriza tion: NEGAT IRIS FOR INTRA EPITH ELIAL LESIO N OR MALIG LUIS This speci men has been bri zed by the ThinP rep Imagi ng Syste m, an inter activ e compu ter syste m which veronica ts the lab [facility] of ThinP rep Pap Test slide s. Follo wing imagi ng, the slide was revie wed by a Cytot echno logis t and/o r Patho logis t. D N A A S S A Y S R E P O R T TEST NAME RESUL TS ----- ---- ----- -- HPV High Risk Scree n (TMA) ThinP rep Vial The human papil lomav irus (HPV) High Risk Scree n is an FDA-a pprov ed in-vi tro ampli fied nucle ic acid test for the quali tativ e detec tion of E6/E7 viral mRNA. Resul ts shoul d be corre lated with patie nt prese ntati on, histo ry, cervi german cytol ogy and other clini german and labor atory findi ngs. See https ://ww wPaomianba.com/s ites/ defau lt/fi les/2 018-0 3/AW- 87216 _002_ 01.pd f for furth er infor matio n. Test perfo rmed by [facility], d/b/a [facility], [address], [place] [address] , Roseanne Michael ra, DO, Labor atory Direc tor. HPV High Risk *HPV NOT DETEC PACO (TYPE S 16, 18, 31, 33, 35, 39, 45, 51, 52, 56, 58, 59, 66, 68) *HPV: The human papil lomav irus (HPV) High Risk Mario bright is an FDA-a pprov ed in-vi tro ampli fied nucle ic acid test for the quali tativ e detec tion of E6/E7 viral mRNA. [facility] margie d be corre lated with patie nt prese ntati on, histo ry, cervi german cytol ogy and other clini german and labor atory findi ngs. See https ://[employer]/s ites/ defau lt/fi les/2 018-0 3/AW- 37214 _002_ 01.pd f for jose elton infor anusha bright. Test perfo rmed by [facility] [employer] [facility] [employer], d/b/a Dory flores, [address] [facility] [address], [place] [address] , Roseanne Michael ra, DO, Labor atorZiegler Dire tor. End of t Techn ical servi mannie provi ded by [facility] [employer], d/b/a Dory flores, [address] [place] [address] Ruslan Gallardo MD, [facility]. Case revie wed and diagn osis rende red at [facility] [employer], d/b/a Dory flores, [address] [place] [address] Ruslan Gallardo MD, [facility]. CONFI DENTI AL Not Available [facility] ([facility]) [facility] [address], [place], [place], [facility], 05/29/2020 14:07:18 05/26/20 20 05/27/2020 HPV DNA, high- risk HPV high risk NOT DETECT ED normal Not Available [facility] ([facility]) [address] [place] [address], [place], [address], 05/29/2020 14:07:19 05/26/20 20 06/02/2020 lipid panel , serum cholesterol 175 mg/dL <200 Not Available [facility] ([facility]) [address] [place] [address] [address], [place], [address], 06/02/2020 14:06:24 05/26/2006/02/2020 lipid panel , serum triglyceride s 55 mg/dL <150 Not Available [facility] ([facility]) [address] [place] [address] [address], [place], [address], 06/02/2020 14:06:24 05/26/2006/02/2020 lipid panel , serum HDL cholesterol 71 mg/dL >39 Not Available [facility] ([facility]) [address] [place] [address] [address], [place], [address], 06/02/2020 14:06:24 05/26/2006/02/2020 lipid panel , serum cholesterol / HDL ratio 2.46 ratio 0.00-4 .44 Not Available [facility] ([facility]) [address] [place] [address] [address], [place], [address], 06/02/2020 14:06:24 05/26/2006/02/2020 lipid panel , serum non-HDL cholesterol 104 mg/dL <130 Not Available [facility] ([facility]) [address] [place] [address] [address], [place], [address], 06/02/2020 14:06:24 05/26/2006/02/2020 lipid panel , serum LDL cholesterol (calculation ) 93 mg/dL <130 LDL Nohemi stero l Level s Less than 100 mg/dL Optim al 100 to 129 mg/dL Near Optim al/ Above Optim al 130 to 159 mg/dL Borde rline High 160 to 189 mg/dL High 190 mg/dL and above Very High * Categ ories as recom laura d by the 2004 ATPII I guide lines Not Available [facility] ([facility]) [address], [place], [address], 06/02/2020 14:06:24 05/26/20 20 06/02/2020 lipid panel , serum LDL/HDL ratio 1.3 ratio <3.3 ___ LDL Nohemi stero l Patie nt Histo ry ___ Test Date: 01/27 LDL Resul ts: 96 Units : mg/dL % Ki e: - ----- ----- ----- ----- ----- ----- ----- ----- ----- ----- ----- ----- ----- ----- --- Test Date: 05/26 LDL Resul ts: 93 Units : mg/dL % Torrez e: -3% ___ Note: Ameri can [facility] Assoc iatio n recom mends using total nohemi stero l and HDL numbe rs rathe r than ratio s for patie nt class ifica tion. New guide lines from AHA/A CC recom mend again st using speci fic LDL targe ts for patie nt manag ement . Rathe r a perce ntage decre ase is the damaris ed patie nt manag ement algor zenobia barajas en 30% and 50% reduc tion. If you would like to have your patie nts Cardi ovasc ular Risk Asses sment class ifica tion (per 2013 AHA/A CC guide lines ) 10-ye ar ASCVD score , pleas e order the ASCVD Advan christopher Lipid Profi joão (LIP VD). Not Available [facility] ([facility]) [facility] [address], [place], [address], 06/02/2020 14:06:24 05/26/2006/02/2020 CBC WBC 3.5 K/uL 3.8-11 .5 low Not Available [facility] ([facility]) [address] [place] [address] [address], [place], [address], 06/02/2020 14:06:25 05/26/20 20 06/02/2020 CBC red blood cell count (RBC) 4.79 M/mm3 3.60-5 .30 Not Available [facility] ([facility]) [address] [place] [address] [address], [place], [address], 06/02/2020 14:06:25 05/26/20 20 06/02/2020 CBC hemoglobin (HGB) 14.0 gm/dL 11.5-1 5.5 Not Available [facility] ([facility]) [address] [place] [address] [address], [place], [address], 06/02/2020 14:06:25 05/26/2006/02/2020 CBC hematocrit (HCT) 41.9 % 35.2-4 6.4 Not Available [facility] ([facility]) [address] [place] [address] [address], [place], [address], 06/02/2020 14:06:25 05/26/20 20 06/02/2020 CBC MCV 87.5 fL 79.0-9 9.0 Not Available [facility] ([facility]) [address] [place] [address] Dr [address], [place], [address], 06/02/2020 14:06:25 05/26/20 20 06/02/2020 CBC MCH 29.2 pg 26.9-3 5.0 Not Available [facility] ([facility]) [address] [place] [address] Dr [address], [place], [address], 06/02/2020 14:06:25 05/26/20 20 06/02/2020 CBC MCHC 33.4 g/dL 30.4-3 4.8 Not Available [facility] [place] ([facility]) [address] [place] [address] Dr [address], [place], [address], 06/02/2020 14:06:25 05/26/20 20 06/02/2020 CBC RDW 40.8 fL 38.6-5 3.8 Not Available [facility] ([facility]) [address] [place] [address] Dr [address], [place], [address], 06/02/2020 14:06:25 05/26/20 20 06/02/2020 CBC platelet count 233 K/cum m 137-39 7 Not Available [facility] ([facility]) [address] [place] [address] Dr [address], [place], [address], 06/02/2020 14:06:25 05/26/20 20 06/02/2020 CMP, serum or plasm a sodium 141 mEq/L 135-14 5 Not Available [facility] ([facility]) [address] [place] [address] Dr [address], [place], [address], 06/02/2020 14:06:26 05/26/20 20 06/02/2020 CMP, serum or plasm a potassium 4.8 mEq/L 3.5-5. 3 Not Available [facility] ([facility]) [address] [place] [address] Dr [address], [place], [address], 06/02/2020 14:06:26 05/26/20 20 06/02/2020 CMP, serum or plasm a chloride 103 mEq/L 97-108 Not Available [facility] ([facility]) [address] [place] [address] [address], [place], [address], 06/02/2020 14:06:26 05/26/20 20 06/02/2020 CMP, serum or plasm a CO2 25 mEq/L 22-32 Not Available [facility] ([facility]) [address] [place] [address] Dr [address], [place], [address], 06/02/2020 14:06:26 05/26/20 20 06/02/2020 CMP, serum or plasm a glucose 89 mg/dL 65-99 Not Available [facility] ([facility]) [address] [place] [address] Dr [address], [place], [address], 06/02/2020 14:06:26 05/26/20 20 06/02/2020 CMP, serum or plasm a BUN 10 mg/dL 6-20 Not Available [facility] ([facility]) [address] [place] [address] Dr [address], [place], [address], 06/02/2020 14:06:26 05/26/20 20 06/02/2020 CMP, serum or plasm a creatinine 0.84 mg/dL 0.50-1 .00 Not Available [facility] ([facility]) [address] [place] [address] Dr [address], [place], [address], 06/02/2020 14:06:26 05/26/20 20 06/02/2020 CMP, serum or plasm a calcium 9.4 mg/dL 8.6-10 .4 Not Available [facility] ([facility]) [address] [place] [address] Dr [address], [place], [address], 06/02/2020 14:06:26 05/26/2006/02/2020 CMP, serum or plasm a protein 6.9 g/dL 6.0-8. 3 Not Available [facility] ([facility]) [address] [place] [address] Dr [address], [place], [address], 06/02/2020 14:06:26 05/26/2006/02/2020 CMP, serum or plasm a albumin 4.6 g/dL 3.5-5. 3 Not Available [facility] ([facility]) [address] [place] [address] Dr [address], [place], [address], 06/02/2020 14:06:26 05/26/20 20 06/02/2020 CMP, serum or plasm a alkaline phosphatase 121 IU/L 35-121 Not Available [facility] ([facility]) [address] [place] [address] Dr [address], [place], [address], 06/02/2020 14:06:26 05/26/2006/02/2020 CMP, serum or plasm a ALT (SGPT) 15 IU/L <5-47 Not Available [facility] ([facility]) [address] [place] [address] Dr [address], [place], [address], 06/02/2020 14:06:26 05/26/2006/02/2020 CMP, serum or plasm a AST (SGOT) 16 IU/L <5-40 Not Available [facility] ([facility]) [address] [place] [address] [address], [place], [address], 06/02/2020 14:06:26 05/26/20 20 06/02/2020 CMP, serum or plasm a bilirubin, total 0.3 mg/dL <0.2-1 .2 Not Available [facility] ([facility]) [address] [place] [address] [address], [place], [address], 06/02/2020 14:06:26 05/26/20 20 06/02/2020 CMP, serum or plasm a A/G ratio 2.0 mg/dL 1.1-2. 5 Not Available [facility] ([facility]) [address] [place] [address] Dr [address], [place], [address], 06/02/2020 14:06:26 05/26/20 20 06/02/2020 GFR, estim ated (eGFR ), serum estimated GFR (black) 91 mL/mi n/1.7 3m2 >59 Not Available [facility] ([facility]) [address] [place] [address] Dr [address], [place], [address], 06/02/2020 14:06:26 05/26/20 20 06/02/2020 GFR, estim ated (eGFR ), serum estimated GFR (other) 78 mL/mi n/1.7 3m2 >59 GFR Categ ories in Chron ic Kidne y Disea se (CKD) GFR Categ ory GFR (mL/m in/1. 73 sq. meter s) Inter preta tion G1 90 or great er Aruna l or high* G2 60-89 Mild decre ase* G3a 45-59 Mild to moder ate decre ase G3b 30-44 Moder ate to sever e decre ase G4 15-29 Sever e decre ase G5 14 or less Kidpernell kilpatrick failu re *In the absen ce of rosie zengag e neith er GFR categ ory G1 or G2 fulfi ll the crite lin for CKD (Gui ey Int Suppl 2013; 3.1-1 50) The CKD-E PI calcu latio n is inten ded for use in patie nts 18 years of age and older . Decre ased calcu latio n accur acy may be seen in patie nts takin g medic ation s that affec t renal excre tion, or in those patie nts with extre mes in muscl e mass or diet. Not Available [facility] ([facility]) [address] [place] [address] [address], [place], [address], 06/02/2020 14:06:26 05/26/20 20 06/02/2020 TSH, serum or plasm a TSH reflex to FT4 2.56 mU/L 0.27-4 .20 Not Available [facility] ([facility]) [address] [facility] [address], [place], [address], 06/02/2020 14:06:27 05/26/20 20 06/02/2020 vitam in D, 25-hy droxy , total , serum vitamin D 25-hydroxy 20.5 NG/mL 30.0-1 00.0 low Inter preta tion of Vitam in D 25 OH: < 20 ng/mL - Defic iency 20 - 29 ng/mL - Insuf ficie ncy 30 - 100 ng/mL - Suffi cienc y > 100 ng/mL - Super -ther apeut ic- toxic ity may occur above this level . Clini german corre latio n requi red. Not Available [facility] ([facility]) [facility] [address], [place], [address], 06/02/2020 14:06:27 09/12/20 21 09/12/2021 urina lysis , dipst ick Leukocytes normal Not Available [facility], [place], [address], 09/12/2021 19:32:55 09/12/20 21 09/12/2021 urina lysis , dipst ick Nitrite normal Not Available [place] [address], [place], [address], 09/12/2021 19:32:55 09/12/20 21 09/12/2021 urina lysis , dipst ick Urobilinogen normal Not Available Chris leonard [address], [place], [address], 09/12/2021 19:32:55 09/12/20 21 09/12/2021 urina lysis , dipst ick Protein normal Not Available [place] [address], [place], [address], 09/12/2021 19:32:55 09/12/20 21 09/12/2021 urina lysis , dipst ick pH normal Not Available [place] [address], [place], [address], 09/12/2021 19:32:55 09/12/20 21 09/12/2021 urina lysis , dipst ick Specific Stafford normal Not Available [facility] [address], [place], [address], 09/12/2021 19:32:55 09/12/20 21 09/12/2021 urina lysis , dipst ick Ketone normal Not Available [place] [address], [place], [address], 09/12/2021 19:32:55 09/12/20 21 09/12/2021 urina lysis , dipst ick Bilirubin normal Not Available [facility] [address], [place], [address], 09/12/2021 19:32:55 09/12/20 21 09/12/2021 urina lysis , dipst ick Glucose normal Not Available [place] [address], [place], [address], 09/12/2021 19:32:55 09/12/20 21 09/12/2021 urina lysis , dipst ick Appearance normal Not Available Marivel moyer [address], [place], [address], 09/12/2021 19:32:55 09/12/20 21 09/12/2021 urina lysis , dipst ick Color normal Not Available [address], [place], [address], 09/12/2021 19:32:55 01/18/20 22 01/17/2022 CBC W/DIF F WBC 5.4 10'3/ uL 3.6-10 .2 Not Available [facility] (Lab) [address], [place], [address], 01/18/2022 02:42:31 01/18/20 22 01/17/2022 CBC W/DIF F RBC 4.10 10'6/ uL (based on docume nted legal sex) 4.10-5 .30 Not Available [facility] (Lab) [address], [place], [address], 01/18/2022 02:42:31 01/18/20 22 01/17/2022 CBC W/DIF F HGB 11.9 g/dL (based on docume nted legal sex) 11.9-1 5.8 Not Available [facility] (Lab) [address], [place], [address], 01/18/2022 02:42:31 01/18/20 22 01/17/2022 CBC W/DIF F HCT 36.0 % (based on docume nted legal sex) 37.4-4 8.3 low Not Available [facility] (Lab) [address], [place], [address], 01/18/2022 02:42:31 01/18/20 22 01/17/2022 CBC W/DIF F MCV 89.0 fL 82.0-9 9.0 Not Available [facility] (Lab) [address], [place], [address], 01/18/2022 02:42:31 01/18/20 22 01/17/2022 CBC W/DIF F MCH 29.0 pg 27.0-3 3.0 Not Available [facility] (Lab) [address] [place], [address], 01/18/2022 02:42:31 01/18/20 22 01/17/2022 CBC W/DIF F MCHC 33.0 g/dL 32.0-3 6.0 Not Available [facility] (Lab) [address], [place], [address], 01/18/2022 02:42:31 01/18/20 22 01/17/2022 CBC W/DIF F RDW 13.0 % 11.0-1 5.0 Not Available [facility] (Lab) [address], [place], [address], 01/18/2022 02:42:31 01/18/20 22 01/17/2022 CBC W/DIF F plt 248 10'3/ uL 150-45 0 Not Available [facility] (Lab) [address], [place], [address], 01/18/2022 02:42:31 01/18/20 22 01/17/2022 CBC W/DIF F MPV 11.1 fL 9.8-12 .7 Not Available [facility] (Lab) [address], [place], [address], 01/18/2022 02:42:31 01/18/20 22 01/17/2022 CBC W/DIF F NRBC's 0.00 % 0 Not Available [facility] (Lab) [address] [place], [address], 01/18/2022 02:42:31 01/18/20 22 01/17/2022 CBC W/DIF F absolute NRBCs 0.0 10'3/ uL 0 Not Available [facility] (Lab) [address] [place], [address], 01/18/2022 02:42:31 01/18/20 22 01/17/2022 CBC W/DIF F neutrophils 56.0 % 37.0-7 2.0 Not Available [facility] (Lab) [address], [place], [address], 01/18/2022 02:42:31 01/18/20 22 01/17/2022 CBC W/DIF F lymphocytes 31.0 % 16.0-4 8.0 Not Available [facility] (Lab) [address] [facility], [place], [address], 01/18/2022 02:42:31 01/18/20 22 01/17/2022 CBC W/DIF F monocytes 10.0 % 4.0-14 .0 Not Available [facility] (Lab) [address] [facility], [place], [address], 01/18/2022 02:42:31 01/18/20 22 01/17/2022 CBC W/DIF F eosinophils 2.0 % 0.0-9. 0 Not Available [facility] (Lab) [address] [facility], [place], [address], 01/18/2022 02:42:31 01/18/20 22 01/17/2022 CBC W/DIF F basophils 1.0 % 0.0-2. 0 Not Available [facility] (Lab) [address] [facility], [place], [address], 01/18/2022 02:42:31 01/18/20 22 01/17/2022 CBC W/DIF F immature granulocytes 0.0 % no define d refere nce range Not Available [facility] (Lab) [address] [facility], [place], [address], 01/18/2022 02:42:31 01/18/20 22 01/17/2022 CBC W/DIF F absolute neutrophils 3.0 10'3/ uL 1.1-6. 0 Not Available [facility] (Lab) [address] [facility], [place], [address], 01/18/2022 02:42:31 01/18/20 22 01/17/2022 CBC W/DIF F absolute lymphocytes 1.7 10'3/ uL 0.7-3. 4 Not Available [facility] (Lab) [address] [facility], [place], [address], 01/18/2022 02:42:31 01/18/20 22 01/17/2022 CBC W/DIF F absolute monocytes 0.6 10'3/ uL 0.3-1. 0 Not Available [facility] (Lab) [address] [facility], [place], [address], 01/18/2022 02:42:31 01/18/20 22 01/17/2022 CBC W/DIF F absolute eosinophils 0.1 10'3/ uL 0.0-0. 6 Not Available [facility] (Lab) [address] [facility], [place], [address], 01/18/2022 02:42:31 01/18/20 22 01/17/2022 CBC W/DIF F absolute basophils 0.1 10'3/ uL 0.0-0. 1 Not Available [facility] (Lab) [address] [facility], [place], [address], 01/18/2022 02:42:31 01/18/20 22 01/17/2022 CBC W/DIF F absolute immature granulocytes 0.00 10'3/ uL 0.00-0 .10 2021 1:09 AM: P indic ates parti al resul ts on a panel have been relea sed. Addit ional resul ts will follo w. 2021 1:09 AM: This resul t has been final verif ied. No addit ional or torrez ed resul ts are expec paco. Not Available [facility] (Lab) [address] [facility], [place], [address], 01/18/2022 02:42:31 01/18/20 22 01/17/2022 PHOSP HORUS phosphorus 3.1 mg/dL 2.5-5. 0 Not Available [facility] (Lab) [address] [facility], [place], [address], 01/18/2022 02:42:31 01/18/20 22 01/17/2022 CMP(C OMPRE HENSI VE METAB OLIC PANEL ) sodium 131 mmol/ L 133-14 6 low Not Available [facility] (Lab) [address] [facility], [place], [address], 01/18/2022 02:42:32 01/18/20 22 01/17/2022 CMP(C OMPRE HENSI VE METAB OLIC PANEL ) potassium 3.9 mmol/ L 3.5-5. 1 Not Available [facility] (Lab) [address] [facility], [place], [address], 01/18/2022 02:42:32 01/18/20 22 01/17/2022 CMP(C OMPRE HENSI VE METAB OLIC PANEL ) chloride 95 mmol/ L 98-107 low Not Available [facility] (Lab) [address] [facility], [place], [address], 01/18/2022 02:42:32 01/18/20 22 01/17/2022 CMP(C OMPRE HENSI VE METAB OLIC PANEL ) carbon dioxide 30 mmol/ L 21-31 Not Available [facility] (Lab) [address] [facility], [place], [address], 01/18/2022 02:42:32 01/18/20 22 01/17/2022 CMP(C OMPRE HENSI VE METAB OLIC PANEL ) anion gap 6 mmol/ L 4-13 Not Available [facility] (Lab) [address] [facility], [place], [address], 01/18/2022 02:42:32 01/18/20 22 01/17/2022 CMP(C OMPRE HENSI VE METAB OLIC PANEL ) blood urea nitrogen 11 mg/dL 7-25 Not Available [facility] (Lab) [address] [facility], [place], [address], 01/18/2022 02:42:32 01/18/20 22 01/17/2022 CMP(C OMPRE HENSI VE METAB OLIC PANEL ) creatinine 0.88 mg/dL 0.60-1 .30 Not Available [facility] (Lab) [address] [facility], [place], [address], 01/18/2022 02:42:32 01/18/20 22 01/17/2022 CMP(C OMPRE HENSI VE METAB OLIC PANEL ) egfrcr (CKD-epi 2020) 77 mL/mi n/1.7 3_m2 >=60 Not Available [facility] (Lab) [address] [facility], [place], [address], 01/18/2022 02:42:32 01/18/20 22 01/17/2022 CMP(C OMPRE HENSI VE METAB OLIC PANEL ) calcium 8.7 mg/dL 8.3-10 .5 Not Available [facility] (Lab) [address] [facility], [place], [address], 01/18/2022 02:42:32 01/18/20 22 01/17/2022 CMP(C OMPRE HENSI VE METAB OLIC PANEL ) glucose 110 mg/dL 70-100 high Not Available [facility] (Lab) [address] [facility], [place], [address], 01/18/2022 02:42:32 01/18/20 22 01/17/2022 CMP(C OMPRE HENSI VE METAB OLIC PANEL ) protein, total 6.3 g/dL 6.4-8. 3 low Not Available [facility] (Lab) [address] [facility], [place], [address], 01/18/2022 02:42:32 01/18/20 22 01/17/2022 CMP(C OMPRE HENSI VE METAB OLIC PANEL ) albumin 4.0 g/dL 3.5-5. 0 Not Available [facility] (Lab) [address] [facility], [place], [address], 01/18/2022 02:42:32 01/18/20 22 01/17/2022 CMP(C OMPRE HENSI VE METAB OLIC PANEL ) ALT 11 units /L 9-43 Not Available [facility] (Lab) [address] [place], [address], 01/18/2022 02:42:32 01/18/20 22 01/17/2022 CMP(C OMPRE HENSI VE METAB OLIC PANEL ) alkaline phosphatase 74 units /L 34-104 Not Available [facility] (Lab) [address] [facility], [place], [address], 01/18/2022 02:42:32 01/18/20 22 01/17/2022 CMP(C OMPRE HENSI VE METAB OLIC PANEL ) AST 14 units /L 13-39 Not Available [facility] (Lab) [address] [facility], [place], [address], 01/18/2022 02:42:32 01/18/20 22 01/17/2022 CMP(C OMPRE HENSI VE METAB OLIC PANEL ) bilirubin, total 0.2 mg/dL 0.2-1. 2 Not Available [facility] (Lab) [address] [facility], [place], [address], 01/18/2022 02:42:32 01/18/20 22 01/17/2022 TSH, REFLE X FREE T4 TSH 1.71 uIU/m L 0.30-5 .33 Not Available [facility] (Lab) [address] [place], [address], 01/18/2022 02:42:32 01/18/20 22 01/17/2022 VITAM IN D, 25-OH (TOTA L D2/D3 ) vitamin D, 25-hydroxy, total 48.4 NG/mL 30-80 NOTE: Defic iency : <20 ng/mL Insuf ficie ncy: 20-29 ng/mL Optim um Level : 30-80 ng/mL Possi ble Toxic ity: >80 ng/mL Most patie nts with toxic ity have level s >150 ng/mL . Not Available [facility] (Lab) [address] [place], [address], 01/18/2022 02:42:32 09/19/20 23 09/19/2023 CBC W/DIF F WBC 7.0 10'3/ uL 3.6-10 .2 Not Available [facility] (Lab) [address], [place], [address], 09/20/2023 04:59:42 09/19/20 23 09/19/2023 CBC W/DIF F RBC 4.36 10'6/ uL (based on docume nted legal sex) 4.10-5 .30 Not Available [facility] (Lab) [address], [place], [address], 09/20/2023 04:59:42 09/19/20 23 09/19/2023 CBC W/DIF F HGB 12.5 g/dL (based on docume nted legal sex) 11.9-1 5.8 Not Available [facility] (Lab) [address], [place], [address], 09/20/2023 04:59:42 09/19/20 23 09/19/2023 CBC W/DIF F HCT 38.6 % (based on docume nted legal sex) 37.4-4 8.3 Not Available [facility] (Lab) [address], [place], [address], 09/20/2023 04:59:42 09/19/20 23 09/19/2023 CBC W/DIF F MCV 88.5 fL 82.0-9 9.0 Not Available [facility] (Lab) [address], [place], [address], 09/20/2023 04:59:42 09/19/20 23 09/19/2023 CBC W/DIF F MCH 28.7 pg 27.0-3 3.0 Not Available [facility] (Lab) [address], [place], [address], 09/20/2023 04:59:42 09/19/20 23 09/19/2023 CBC W/DIF F MCHC 32.4 g/dL 32.0-3 6.0 Not Available [facility] (Lab) [address], [place], [address], 09/20/2023 04:59:42 09/19/20 23 09/19/2023 CBC W/DIF F RDW 12.7 % 11.0-1 5.0 Not Available [facility] (Lab) [address], [place], [address], 09/20/2023 04:59:42 09/19/20 23 09/19/2023 CBC W/DIF F plt 281 10'3/ uL 150-45 0 Not Available [facility] (Lab) [address], [place], [address], 09/20/2023 04:59:42 09/19/20 23 09/19/2023 CBC W/DIF F MPV 11.2 fL 9.8-12 .7 Not Available [facility] (Lab) [address], [place], [address], 09/20/2023 04:59:42 09/19/20 23 09/19/2023 CBC W/DIF F NRBC's 0.0 % 0 Not Available [facility] (Lab) [address], [place], [address], 09/20/2023 04:59:42 09/19/20 23 09/19/2023 CBC W/DIF F absolute NRBCs 0.0 10'3/ uL 0 Not Available [facility] (Lab) [address], [place], [address], 09/20/2023 04:59:42 09/19/20 23 09/19/2023 CBC W/DIF F neutrophils 68.9 % 37.0-7 2.0 Not Available [facility] (Lab) [address], [place], [address], 09/20/2023 04:59:42 09/19/20 23 09/19/2023 CBC W/DIF F lymphocytes 21.5 % 16.0-4 8.0 Not Available [facility] (Lab) [address], [place], [address], 09/20/2023 04:59:42 09/19/20 23 09/19/2023 CBC W/DIF F monocytes 6.7 % 4.0-14 .0 Not Available [facility] (Lab) [address], [place], [address], 09/20/2023 04:59:42 09/19/20 23 09/19/2023 CBC W/DIF F eosinophils 1.6 % 0.0-9. 0 Not Available [facility] (Lab) [address], [place], [address], 09/20/2023 04:59:42 09/19/20 23 09/19/2023 CBC W/DIF F basophils 1.0 % 0.0-2. 0 Not Available [facility] (Lab) [address] [facility], [place], [address], 09/20/2023 04:59:42 09/19/20 23 09/19/2023 CBC W/DIF F immature granulocytes 0.3 % no define d refere nce range Not Available [facility] (Lab) [address] [place], [address], 09/20/2023 04:59:42 09/19/20 23 09/19/2023 CBC W/DIF F absolute neutrophils 4.8 10'3/ uL 1.1-6. 0 Not Available [facility] (Lab) [address] [place], [address], 09/20/2023 04:59:42 09/19/20 23 09/19/2023 CBC W/DIF F absolute lymphocytes 1.5 10'3/ uL 0.7-3. 4 Not Available [facility] (Lab) [address], [place], [address], 09/20/2023 04:59:42 09/19/20 23 09/19/2023 CBC W/DIF F absolute monocytes 0.5 10'3/ uL 0.3-1. 0 Not Available [facility] (Lab) [address] [facility], [place], [address], 09/20/2023 04:59:42 09/19/20 23 09/19/2023 CBC W/DIF F absolute eosinophils 0.1 10'3/ uL 0.0-0. 6 Not Available [facility] (Lab) [address] [facility], [place], [address], 09/20/2023 04:59:42 09/19/20 23 09/19/2023 CBC W/DIF F absolute basophils 0.1 10'3/ uL 0.0-0. 1 Not Available [facility] (Lab) [address] [facility], [place], [address], 09/20/2023 04:59:42 09/19/20 23 09/19/2023 CBC W/DIF F absolute immature granulocytes 0.0 10'3/ uL 0.00-0 .10 09/20 3:18 AM: P indic ates parti al resul ts on a panel have been relea sed. Addit ional resul ts will follo w. 09/20 3:18 AM: This resul t has been final verif ied. No addit ional or torrez ed resul ts are expec paco. Not Available [facility] (Lab) [address] [facility], [place], [address], 09/20/2023 04:59:42 09/19/20 23 09/19/2023 TSH, REFLE X FREE T4 TSH 2.00 uIU/m L 0.30-5 .33 Not Available [facility] (Lab) [address] [facility], [place], [address], 09/20/2023 04:59:44 09/19/20 23 09/19/2023 LIPID PANEL ,AMA (LDL- CALC) total cholesterol 210 mg/dL 0-199 high Not Available [facility] (Lab) [address] [facility], [place], [address], 09/20/2023 04:59:44 09/19/20 23 09/19/2023 LIPID PANEL ,AMA (LDL- CALC) triglyceride s 171 mg/dL 0.00-1 50.00 high NCEP Refer ence Value s for Trigl yceri aura: Aruna l: <150 mg/dL Borde rline High: 150 - 199 mg/dL High: 200 - 499 mg/dL Very High: >/= 500 mg/dL Not Available [facility] (Lab) [address] [facility], [place], [address], 09/20/2023 04:59:44 09/19/20 23 09/19/2023 LIPID PANEL ,AMA (LDL- CALC) HDL cholesterol 72 mg/dL >40 Not Available [facility] (Lab) [address], [place], [address], 09/20/2023 04:59:44 09/19/20 23 09/19/2023 LIPID PANEL ,AMA (LDL- CALC) LDL cholesterol 109 mg/dL 0-99 high Cutof f value s recom laura d by the Natio nal Nohemi stero l Educa tion Progr am: DAMARIS ABLE: Nohemi stero l <200 mg/dL LDL <100 mg/dL BORDE RLINE : Nohemi stero l 200-2 39 mg/dL LDL 101-1 59 mg/dL HIGHE R RISK: Nohemi stero l >240 mg/dL LDL >160 mg/dL , HDL <40 mg/dL Not Available [facility] (Lab) [address] [place], [address], 09/20/2023 04:59:44 09/19/20 23 09/19/2023 LIPID PANEL ,AMA (LDL- CALC) non-HDL cholesterol 138 mg/dL no refere nce range A reaso nable goal for non-H DL nohemi stero l is one that is 30 mg/dL highe r than the LDL nohemi stero l goal. Not Available [facility] (Lab) [address], [place], [address], 09/20/2023 04:59:44 09/19/2009/19/2023 LIPID PANEL ,AMA (LDL- CALC) chol/HDL ratio 2.9 . 0.0-5. 0 On January 21, 2023, [facility] labor atori es torrez ed the equat ion for calcu latin g estim ated low-d ensit y lipop rotei n-cho leste rol (LDL- C) from the [employer] equat ion to the Macey n/[facility] equat ion. This new equat ion is only valid for lipid panel s with trigl yceri aura < 400 mg/dL . Studi es have demon strat ed that this new equat ion will impro ve the accur acy of LDL-C , espec ially in scena hernández when LDL-C lj ntrat ions are relat ively low (< 100 mg/dL ), trigl yceri aura are eleva paco, or patie nt is non-f astin g. Refer ences : - Macey bright, Avinash Shah, Spenser Briones , [facility] saturnino reynolds, Michael Latham, Michael scherer h, Butch navarro , and Joshua Mccann . 2013. Comp ariso n of a Novel Metho d vs the [employer] Equat ion for Estim ating Low-D ensit y Lipop rotei n Nohemi stero l Level s from the [place] Lipid Profi le. [place]: The Journ al of the Ameri can Medic al Assoc iatio n 310 (19): 2060- . - Rose Mary cervantes V, Eva J, Cordell cervantes A, Jayro M, Quentin daniels R, Jannie cervantes E, [facility] RS, Ramy SR, Macye bright SS. Fast ing Versu s Nonfa sting and Low-D ensit y Lipop rotei n Nohemi stero l Accur acy. Circu latio n. 2017Sep 30;137 (1):1 0-19. Not Available [facility] (Lab) [address] [facility], [place], [address], 09/20/2023 04:59:44 09/19/20 23 09/19/2023 CMP(C OMPRE HENSI VE METAB OLIC PANEL ) sodium 133 mmol/ L 133-14 6 Not Available [facility] (Lab) [address] [facility], [place], [address], 09/20/2023 04:59:44 09/19/20 23 09/19/2023 CMP(C OMPRE HENSI VE METAB OLIC PANEL ) potassium 4.0 mmol/ L 3.5-5. 1 Not Available [facility] (Lab) [address] [facility], [place], [address], 09/20/2023 04:59:44 09/19/20 23 09/19/2023 CMP(C OMPRE HENSI VE METAB OLIC PANEL ) chloride 99 mmol/ L 98-107 Not Available [facility] (Lab) [address] [facility], [place], [address], 09/20/2023 04:59:44 09/19/20 23 09/19/2023 CMP(C OMPRE HENSI VE METAB OLIC PANEL ) carbon dioxide 29 mmol/ L 21-31 Not Available [facility] (Lab) [address] [facility], [place], [address], 09/20/2023 04:59:44 09/19/20 23 09/19/2023 CMP(C OMPRE HENSI VE METAB OLIC PANEL ) anion gap 5 mmol/ L 4-13 Not Available [facility] (Lab) [address] [facility], [place], [address], 09/20/2023 04:59:44 09/19/20 23 09/19/2023 CMP(C OMPRE HENSI VE METAB OLIC PANEL ) blood urea nitrogen 14 mg/dL 7-25 Not Available [facility] (Lab) [address] [place], [address], 09/20/2023 04:59:44 09/19/20 23 09/19/2023 CMP(C OMPRE HENSI VE METAB OLIC PANEL ) creatinine 0.85 mg/dL 0.60-1 .30 Not Available [facility] (Lab) [address], [place], [address], 09/20/2023 04:59:44 09/19/20 23 09/19/2023 CMP(C OMPRE HENSI VE METAB OLIC PANEL ) egfrcr (CKD-epi 2020) 79 mL/mi n/1.7 3_m2 >=60 Not Available [facility] (Lab) [address], [place], [address], 09/20/2023 04:59:44 09/19/20 23 09/19/2023 CMP(C OMPRE HENSI VE METAB OLIC PANEL ) calcium 8.9 mg/dL 8.3-10 .5 Not Available [facility] (Lab) [address], [place], [address], 09/20/2023 04:59:44 09/19/20 23 09/19/2023 CMP(C OMPRE HENSI VE METAB OLIC PANEL ) glucose 88 mg/dL 70-100 Not Available [facility] (Lab) [address], [place], [address], 09/20/2023 04:59:44 09/19/20 23 09/19/2023 CMP(C OMPRE HENSI VE METAB OLIC PANEL ) protein, total 6.2 g/dL 6.4-8. 3 low Not Available [facility] (Lab) [address], [place], [address], 09/20/2023 04:59:44 09/19/20 23 09/19/2023 CMP(C OMPRE HENSI VE METAB OLIC PANEL ) albumin 4.2 g/dL 3.5-5. 0 Not Available [facility] (Lab) [address], [place], [address], 09/20/2023 04:59:44 09/19/20 23 09/19/2023 CMP(C OMPRE HENSI VE METAB OLIC PANEL ) ALT 10 units /L 9-43 Not Available [facility] (Lab) [address] [facility], [place], [address], 09/20/2023 04:59:44 09/19/20 23 09/19/2023 CMP(C OMPRE HENSI VE METAB OLIC PANEL ) alkaline phosphatase 83 units /L 34-104 Not Available [facility] (Lab) [address] [facility], [place], [address], 09/20/2023 04:59:44 09/19/20 23 09/19/2023 CMP(C OMPRE HENSI VE METAB OLIC PANEL ) AST 13 units /L 13-39 Not Available [facility] (Lab) [address] [facility], [place], [address], 09/20/2023 04:59:44 09/19/20 23 09/19/2023 CMP(C OMPRE HENSI VE METAB OLIC PANEL ) bilirubin, total 0.3 mg/dL 0.2-1. 2 Not Available [facility] (Lab) [address] [facility], [place], [address], 09/20/2023 04:59:44 09/19/20 23 09/19/2023 VITAM IN D, 25-OH (TOTA L D2/D3 ) vitamin D, 25-hydroxy, total 45.1 NG/mL 30.0-1 00.0 Sugge stive of Defic iency : <20 ng/mL Sugge stive of Insuf ficie ncy: 20-29 ng/mL Sugge stive of Suffi cienc y: 30-10 0 ng/mL Sugge stive of Toxic ity: >150 ng/mL Not Available [facility] (Lab) [address] [facility], [place], [address], 09/20/2023 04:59:45 09/19/20 23 09/19/2023 HEMOG LOBIN A1C hemoglobin A1C 5.8 % 0-5.6 high The Ameri can Diabe eric Assoc iatio n recom mends that a prima ry goal of thera py margie d be a HBA1C of < 7% and that physi cians shoul d reeva luate the treat ment regim en in patie nts with HBA1C value s consi stent ly > 8%. <5.7% Aruna l 5.7 - 6.4% Incre ased risk for diabe eric >=6.5 % Diagn ostic of diabe eric <7.0% Goal of thera py >8.0% Actio n sugge sted Not Available [facility] (Lab) [address], [place], [address], 09/20/2023 04:59:45 04/19/20 24 04/19/2024 CULTU RE: URINE result report SEE RESULT S BELOW Test: Cultu re: Urine Speci men Sourc e: Urine - Clean Catch Speci men Type: Urine Speci men Date: 2023 1228 Resul t Date: 2023 0359 Resul t Statu s: Final resul t Abnor mal: No Resul ting Lab: [facility] [address] [facility] [address] Tel: CULTU RE ----- ----- ----- --- No growt h in 1 day (dete ction level of 10,00 0 colon ies / ml.) Not Available [facility] (Lab) [address], [place], [address], 04/21/2024 05:02:08 04/19/20 24 04/19/2024 urina lysis , dipst ick Leukocytes + Not Available [facility] [address], [place], [address], 04/19/2024 12:51:13 04/19/20 24 04/19/2024 urina lysis , dipst ick Protein + Not Available [address], [place], [address], 04/19/2024 12:51:13 05/11/20 21 05/10/2021 MAMMO , scree silvia, bilat eral No observ ation record ed. [address] [facility], [place], [address], 05/14/2021 17:09:29 09/12/20 21 09/07/2021 DEXA, axial skele ton + verte bral fract ure asses sment No observ ation record ed. [email or web address] [facility], [place], [address], 09/18/2023 18:51:31 04/16/20 24 04/06/2024 MAMMO , scree silvia, bilat eral No observ ation record ed. [email or web address] [address], [place], [address], 04/19/2024 09:46:46 04/19/20 24 04/06/2024 MAMMO , scree silvia, bilat eral No observ ation record ed. [address] [address], [place], [address], 04/20/2024 12:05:22 05/05/20 24 05/05/2024 MAMMO , diagn ostic , unila teral No observ ation record ed. [address] [address], [place], [address], 05/06/2024 11:27:19 Result Notes None recorded. 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 16:28:[address] Concept Completed 201602/02/2021 Encntr for general adult medical exam w/o abnormal findings ;Recorde d Elsewher e: No Locat ion: [facility] S ource: EHR Career Manager vicky: N Practi ce ID: [id number] Roderick lable Time: 05:00:00 PM Shana Crooks [facility], [facility] 16:29:39 Adult health examinat ion Completed 201402/02/2021 ROUTINE MEDICAL EXAM;Rec orded Elsewher e: No Locat ion: [facility] S ource: EHR Career Manager vicky: N Practi ce ID: [id number] Roderick lable Time: 03:00:00 PM Shana Crooks [facility], [facility] 16:28:54 Menopaus e present [id number] Completed 201602/02/2021 Menopaus al and female climacte eddie states;R ecorded Elsewher e: No Locat ion: [facility] S ource: EHR Career Manager vicky: N Practi ce ID: [id number] Roderick lable Time: 06:15:00 PM Shana Crooks [facility], [facility] 16:29:[address] Concept Completed 201602/02/2021 Encntr for remote sensing analyst exam (general ) (routine ) w/o abn findings ;Recorde d Elsewher e: No Locat ion: [facility] S ource: EHR Career Manager vicky: N Practi ce ID: [id number] Roderick lable Time: 05:00:00 PM Shana Crooks kimber [facility] 16:29:41 Cyst of ovary [id number] Completed 201402/02/2021 Other and unspecif ied ovarian cyst;Rec orded Elsewher e: No Locat ion: [facility] S ource: EHR Career Manager vicky: N Practi ce ID: [id number] Roderick lable Time: 03:00:00 PM Shana quiroga, [facility] 16:29:21 Screenin g for malignan t neoplasm of rectum Completed 201602/02/2021 Encounte r for screenin g for malignan t neoplasm of rectum;R ecorded Elsewher e: No Locat ion: [facility] S ource: EHR Career Manager vicky: N Practi ce ID: [id number] Roderick lable Time: 05:00:00 PM Shana quiroga, [facility] 16:29:[address] Concept Completed 201602/02/2021 Anxiety disorder , unspecif ied;Lul rded Elsewher e: No Locat ion: [facility] N Myrnati ce ID: [id number] Roderick lable Time: 06:00:00 PM Shana Crooks [facility], [facility] 16:29:37 Screenin g for malignan t neoplasm of cervix Completed 201402/02/2021 Screenin g for malignan t neoplasm s of the cervix;R ecorded Elsewher e: No Locat ion: [facility] N Myrnati ce ID: 0001 Roderick lable Time: 03:00:00 PM Shana quiroga, [facility] 16:29:33 Speciali zed medical examinat ion Completed 201402/02/2021 ROUTINE HAND ROLLER EXAMINAT ION;Lul rded Elsewher e: No Locat ion: [facility] S ource: [employer] vicky: N Practi ce ID: 0001 Roderick lable Time: 03:00:00 PM Shana quiroga, [facility] 16:29:43 Dyspareu laurence [id number] Completed 201402/02/2021 Dyspareu laurence;Lul rded Elsewher e: No Locat ion: [facility] S ource: EHR Career Manager vicky: N Practi ce ID: 0001 Roderick lable Time: 04:45:00 PM Shana Crooks kimber [facility] 16:29:23 Blood leukocyt e number above referenc e range [id number] Completed 201802/02/2021 Elevated white blood cell count, unspecif ied;Lul rded Elsewher e: No Locat ion: [facility] S ource: EHR Career Manager vicky: N Practi ce ID: 0001 Roderick lable Time: 04:00:00 PM Shana quiroga [facility] 16:29:26 Uterine leiomyom a [id number] Completed 201402/02/2021 Fibroid uterus;R ecorded Elsewher e: No Locat ion: [facility] S ource: EHR Career Manager vicky: N Practi ce ID: 0001 Roderick lable Time: 03:00:00 PM Shana quiroga [facility] 16:29:[address] Concept Completed 201802/02/2021 Encounte r for general adult medical exam w abnormal findings ;Practic e ID: 0001 Shana Crooks [facility] 16:29:31 Problem Notes None recorded. Procedures Surgical History Date Name Laterality Status Provider Name and Address Organization Details Recorded Time 04/29/20 21 maxillary sinusotomy completed Shana Crooks [facility] 09/24/2021 15:55:39 10/31/19 21 completed Rosalie Holguin [facility] 04/19/2024 12:26:31 05/26/20 20 Date of Last Pap Smear completed Evelyn Fine [facility] 09/18/2023 18:21:24 06/29/20 15 Date of Last Colonoscopy completed Rosalie Holguin [facility] 04/19/2024 12:26:31 Imaging Results Imaging Date Name Status LastModified by Organiz ation Details LastModified Time 05/10/2021 MAMMO, screening, bilateral completed [address], [address], 05/14/2021 17:09:29 09/07/2021 DEXA, axial skeleton + vertebral fracture assessment completed [address], [address], 09/18/2023 18:51:31 04/06/2024 MAMMO, screening, bilateral completed [address], [address], 04/19/2024 09:46:46 04/06/2024 MAMMO, screening, bilateral completed [address], [address], 04/20/2024 12:05:22 05/05/2024 MAMMO, diagnostic, unilateral completed [address], [address], 05/06/2024 11:27:19 Procedure Notes None recorded. Medical Equipment None Reported. Allergies Allergen ID Allergen Name Allergen Category Reaction Reaction Severity Criticality Documentation Date Start Date Code Code System Note Provider Name and Address Organization Details Recorded Time 1863 Substance with sulfonami de structure and antibacte rial mechanism of action (substanc e) medicatio n rash Not available Not available 05/26/2020 95405 8003 SNOMED Shana quiroga [facility] 0 15:12:35 1864 Paxil medicatio n Not available Not available Not available 05/26/2020 75387 8 RxNorm blurr y visio n Shana quiroga, [facility] 0 15:13:21 Medications Name Sig Start Date Stop Date Status Note LastModified by Organization Details LastModified Time naproxen 375 mg tablet take 1 tablet by oral route 2 times every day with food 06/25 completed Prescrib ed Elsewher e: Yes [facility] odify By: [email or web address] Encounte r DateTime : 12/30/19 03:00:00 PM Not Available Not Available Not Available meloxicam 15 mg tablet 05/26 completed Not Available Not Available Not Available Paxil 20 mg tablet take 1 tablet by oral route every day 12/23 completed Prescrib ed Elsewher e: No Locat ion: Masha daniels [facility] Endy odify By: [email or web address] z Encoun ter DateTime : 11/11/19 11:06:06 AM Not Available Not Available Not Available ciproflox acin 500 mg tablet TAKE 1 TABLET BY MOUTH EVERY DAY FOR 5 DAYS active Not Available Not Available No t Available omeprazol e 40 mg capsule,d elayed release TAKE 1 TABLET BY MOUTH DAILY 09/12 completed Not Available Not Available Not Available doxycycli ne monohydra te 100 mg tablet 100 MG ORALLY TWICE A DAY 09/18 completed Not Available Not Available Not Available cephalexi n 500 mg capsule 09/12 completed Not Available Not Available Not Available omeprazol e 20 mg capsule,d elayed release TAKE 1 CAPSULE BY MOUTH TWICE A DAY active Not Available Not Available No t Available ergocalci ferol (vitamin D2) 1,250 mcg (50,000 unit) capsule TAKE 1 CAPSULE BY MOUTH ONCE WEEKLY active Not Available Not Available No t Available oxycodone -acetamin ophen 7.5 mg-325 mg tablet 09/12 completed Not Available Not Available Not Available methylpre dnisolone 4 mg tablets in a dose pack TAKE 6 TABLETS ON DAY 1 DIRECTED ON PACKAGE AND DECREASE BY 1 TAB EACH DAY FOR A TOTAL OF 6 DAYS 09/18 completed Not Available Not Available Not Available paroxetin e 40 mg tablet Take 1 tablet every day by oral route. 02/02 completed Not Available Not Available Not Available ketoconaz ole 2 % topical cream APPLY TO THE AFFECTED TOENAILS ONCE DAILY 09/18 completed Not Available Not Available Not Available Paxil 10 mg tablet take 1 tablet by oral route every day 09/18 completed Prescrib ed Elsewher e: No Locat ion: Masha daniels [facility] odify By: carolyn Daniels felicitas DateTime : 07/28/20 17 01:07:42 PM Not Available Not Available Not Available fluticaso ne propionat e 50 mcg/actua tion nasal spray,carlos [address] PLACE 1 TO 2 SPRAYS INTO EACH NOSTRIL TWICE DAILY active Not Available Not Available No t Available amoxicill in 875 mg-potass ium clavulana te 125 mg tablet TAKE 1 TABLET BY MOUTH 2 TIMES DAILY WITH MORNING AND EVENING MEAL FOR 7 DAYS 09/12 completed Not Available Not Available Not Available Estrace 0.01% (0.1 mg/gram) vaginal cream insert (2G) by vaginal route every week for 2 weeks then reduce to .5g twice weekly maintena ce 06/25 completed Prescrib ed Elsewher e: No Locat ion: Masha daniels [facility] odify By: abssem Blackburn r DateTime : 01/31/20 15 12:25:06 PM Not Available Not Available Not Available NuvaRing 0.12 mg-0.015 mg/24 hr vaginal insert 1 vaginal ring by vaginal route every month leave in place for 3 weeks, remove for 1 week 06/25 completed Prescrib ed Elsewher e: No Locat ion: Masha daniels [facility] odify By: bassem Blackburn r DateTime : 04/20/20 15 10:42:13 AM Not Available Not Available Not Available escitalop natividad 10 mg tablet TAKE 1 TABLET BY MOUTH EVERY DAY 02/02 completed Not Available Not Available Not Available escitalop natividad 20 mg tablet TAKE 1 TABLET BY MOUTH EVERY DAY active Not Available Not Available No t Available Premarin 0.625 mg/gram vaginal cream insert (1G) by vaginal route every day cyclical ly, 3 weeks on and 1 week off 06/25 completed Prescrib ed Elsewher e: No Locat ion: [facility] odify By: bassem Blackburn r DateTime : 02/01/20 15 11:25:12 AM Not Available Not Available Not Available bupropion HCl XL 150 mg 24 hr tablet, extended release TAKE 1 TABLET BY MOUTH EVERY DAY active Not Available Not Available No t Available TriNessa (28) 0.18 mg(7)/0.2 15 mg(7)/0.2 5 mg(7)-35 mcg tablet take 1 tablet by oral route every day 06/25 completed Prescrib ed Elsewher e: No Locat ion: [facility] odify By: bassem Blackburn r DateTime : 01/31/20 15 12:25:06 PM Not Available Not Available Not Available chlorhexi dine gluconate 0.12 % mouthwash 09/12 completed Not Available Not Available Not Available Activella 0.5 mg-0.1 mg tablet take 1 tablet by oral route every day 06/25 completed Prescrib ed Elsewher e: No Locat ion: [facility] odify By: bassem Blackburn r DateTime : 02/02/20 15 10:28:25 AM Not Available Not Available Not Available Fluzone Quad (PF) 60 mcg (15 mcg x 4)/0.5 mL IM syringe PHARMACI ST ADMINIST ERED IMMUNIZA TION ADMINIST ERED AT TIME OF DISPENSI NG 09/18 completed Not Available Not Available Not Available Vitals Date Recorded Body height Body mass index (BMI) Body weight Systolic blood pressure Diastolic blood pressure Provider Name and Address Organization Details Last Updated DateTime 02/02/2021 165.74 cm 25.4 kg/m2 61741.22 g 134 mm[Hg] 81 mm[Hg] Shana Crooks [facility] 1 16:27:30 Date Recorded Body height Body mass index (BMI) Body weight Systolic blood pressure Diastolic blood pressure Provider Name and Address Organization Details Last Updated DateTime 09/12/2021 165.74 cm 23.6 kg/m2 58832.71 g 127 mm[Hg] 80 mm[Hg] Shana Crooks [facility] 18:14:20 Date Recorded Body height Body mass index (BMI) Body weight Systolic blood pressure Diastolic blood pressure Provider Name and Address Organization Details Last Updated DateTime 05/26/2020 165.74 cm 26.4 kg/m2 10635.78 g 130 mm[Hg] 86 mm[Hg] Shana Crooks [facility] 0 15:12:19 Date Recorded Body height Body mass index (BMI) Body weight Systolic blood pressure Diastolic blood pressure Provider Name and Address Organization Details Last Updated DateTime 09/18/2023 165.74 cm 26.6 kg/m2 33665.37 g 150 mm[Hg] 83 mm[Hg] Evelynrandi Fine [facility] 3 18:25:07 Date Recorded Systolic blood pressure Diastolic blood pressure Provider Name and Address Organization Details Last Updated DateTime 09/18/2023 126 mm[Hg] 80 mm[Hg] Erin Marie, [facility]- [address], [place], [address], [facility] 09/18/2023 18:51:47 Date Recorded Body height Body mass index (BMI) Body weight Systolic blood pressure Diastolic blood pressure Provider Name and Address Organization Details Last Updated DateTime 04/19/2024 165.74 cm 24.4 kg/m2 85117.67 g 126 mm[Hg] 72 mm[Hg] Rosalie Holguin [facility] 4 12:42:47 Social History Question Answer Notes LastModified by Organizat ion Details LastModified Time Tobacco Smoking Status Never Smoker James quiroga, [facility] 09/12/2021 17:48:41 Do You Have An Advance Directive? No [email or web address] Information not available 02/02/2021 What Is Your Level Of Alcohol Consumption? Occasional [email or web address] Information not available 05/29/2020 How Many Years Have You Consumed Alcohol? 30 [email or web address] Information not available 02/02/2021 Are You Blind Or Do You Have Difficulty Seeing? No [email or web address] Information not available 02/02/2021 What Is Your Level Of Caffeine Consumption? Occasional [email or web address] Information not available 02/02/2021 In The 14 Days Before Symptom Onset, Have You Had Close Contact With A Laboratory-confir med COVID-19 While That Case Was Ill? No [email or web address] Information not available 02/02/2021 In The 14 Days Before Symptom Onset, Have You Had Close Contact With A Person Who Is Under Investigation For COVID-19 While That Person Was Ill? No [email or web address] Information not available 02/02/2021 Have You Been To An Area Known To Be High Risk For COVID-19? No [email or web address] Information not available 02/02/2021 Are You Deaf Or Do You Have Serious Difficulty Hearing? No [email or web address] Information not available 02/02/2021 What Type Of Diet Are You Following? REGULAR Information not available 02/02/2021 Do You Or Have You Ever Used E-cigarettes Or Vape? Never Used Electronic Cigarettes [email or web address] Information not available 09/12/2021 What Is The Highest Grade Or Level Of School You Have Completed Or The Highest Degree You Have Received? 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 No [email or web address] Information not available 02/02/2021 What Was The Date Of Your Most Recent Tobacco Screening? 05/26/2020 [email or web address] Information not available 09/12/2021 Have You Ever Been Counseled For Unhealthy Alcohol Use? No [email or web address] Information not available 09/12/2021 Do You Use Protection During Sex? Always [email or web address] Information not available 02/02/2021 Do You Use Your Seat Belt Or Car Seat Routinely? Yes [email or web address] Information not available 02/02/2021 Do You Have Smoke And Carbon Monoxide Detectors In Your Home? Yes [email or web address] Information not available 02/02/2021 Do You Or Have You Ever Used Smokeless Tobacco? Never Used Smokeless Tobacco [email or web address] Information not available 09/12/2021 How Much Tobacco Do You Smoke? No [email or web address] Information not available 05/29/2020 Do You Feel Stressed (tense, Restless, Nervous, Or Anxious, Or Unable To Sleep At Night)? [id number] [email or web address] Information not available 02/02/2021 Do You Use Any Illicit Or Recreational Drugs? No [email or web address] Information not available 02/02/2021 Do You Use Sunscreen Routinely? Yes [email or web address] Information not available 02/02/2021 Has Tobacco Cessation Counseling Been Provided? No [email or web address] Information not available 09/12/2021 Have You Used IV Drugs? No [email or web address] Information not available 02/02/2021 Sex: Unknown Functional Status Question Answer Note LastModified by Organizat ion Details LastModified Time Are you able to walk? YESWOREST [email or web address] Information not available 02/02/2021 What is your exercise level? Occasional [email or web address] Information not available 05/29/2020 Mental Status None recorded. Family History Relationship Description Onset Age of this Age Resolved Age Notes LastModified by Organization Details LastModified Time Mother Heart disease [email or web address] Not available 05/29 10:26:33 Mother Hypertensive disorder [email or web address] Not available 05/29 10:27:41 Mother Disorder of thyroid gland [email or web address] Not available 05/29 10:28:15 Mother Anemia [email or web address] Not available 05/29/2020 10:28:28 Mother Seizure disorder [email or web address] Not available 2023 12:34:20 Mother Malignant tumor of cervix [email or web address] Not available 05/29 10:33:30 Mother Polyp of colon [email or web address] Not available 2023 12:34:20 Mother Suspected endometrial cancer 40 [email or web address] Not available 2023 12:34:20 Maternal Grandmother Heart disease [email or web address] Not available 05/29 10:26:33 Maternal Grandmother Hypertensive disorder [email or web address] Not available 05/29 10:27:41 Sister Heart disease [email or web address] Not available 05/29 10:26:33 Father Hypertensive disorder [email or web address] Not available 05/29 10:27:41 Father Malignant tumor of prostate 79 [email or web address] Not available 2023 12:34:20 Father Malignant tumor of colon 81 [email or web address] Not available 2023 12:26:17 Father Polyp of colon [email or web address] Not available 2023 12:34:20 Father Malignant tumor of colon [email or web address] Not available 2023 12:34:20 Brother Asthma [email or web address] Not availabl e 05/29/2020 10:28:35 Brother Seizure disorder [email or web address] Not available 2023 12:34:20 Brother Hypertensive disorder [email or web address] Not available 2023 12:34:20 Paternal Uncle Malignant tumor of lung [email or web address] Not available 05/29 10:33:49 Unspecified Relation Malignant tumor of prostate nephew [email or web address] Not available 2023 12:34:20 Paternal Aunt Malignant tumor of colon fhtirt14 Not available 2023 12:34:20 Notes:Brother: Seizure disor aime, Asthma Father: Hypertension Maternal grandmother: Congenital heart disease, Hypertension Mother: Congenital heart disease, Seizure disorder, Anemia, Thyroid disease, Hypertension, Cervical cancer Paternal uncle: Cancer, lung Sister: Congenital heart disease Medical History Condition Response Allergies (Food, seasonal, environmental ) Y Other Y Breast Cancer N Drug/Latex Allergies/Reactions Y Blood Transfusion N Dermatologic Disorders N Lung Disease N Defects or Inherited Disease N Breast Problem N Gestational Diabetes N Hematologic disorders N Anesthesia Complications N History of STI N Deep Vein Thrombosis N Polycystic ovary syndrome N Anxiety Disorder Y Autoimmune disease N Arthritis N Infertility N Polyps N Acid Reflux (GERD) N History of abnormal pap N Cancer N Stroke N Varicosities N Neurologic/Epilepsy Y Endometriosis N High Cholesterol N Headaches N Fibromyalgia N Kidney Disease N Heart Problems N Kidney or Bladder Problems N Thyroid Problems N GI Problems N Eating Disorder N Anemia N Art (IVF or FET) N Psychiatric Illness Y Ovarian Cancer N Diabetes N Pulmonary (TB, Asthma) N Hepatitis/Liver Disease N No Past Medical History N Eczema N Urinary Tract Infection N Abuse/Domestic Violence N Asthma N Trauma/Violence N Depression/ depression Y Heart Disease N Pre-Eclampsia N Hypertension N Osteoporosis N Thrombophilias N Gynecological History Statement/Question Response Abnormal Pap N Date of Last Mammogram Date of LMP 09/29/2014 N On BCP's at Conception? N STIs/STDs N HPV Vaccine N Colposcopy 50 Current Control Method Menopause If Post Menopausal, Age at Menopause Date of Last Colonoscopy 06/29/2015 Sexually Active? N Menses Monthly N Date of DEXA bone scan Age of first menstrual cycle 9 Date of Last Pap Smear 05/26/2020 Sexual Problems? N LMP Approximate 10/31/2020 N Obstetrics History GPAL:G 0 P 0 0 0 0 Immunizations Vaccine Type Date Status Note Provider Nam e and Address Organization Details Recorded Time Influenza, split virus, quadrivalent, preservative 1 completed Shana quiroga, [facility] 09/12/2021 18:14:36 COVID-19, mRNA, LNP-S, PF, 30 mcg/0.3 mL dose 1 completed Shana quiroga, [facility] 09/12/2021 18:14:37 Influenza, split virus, quadrivalent, PF 1 completed Shana quiroga, [facility] 09/12/2021 18:14:37 Past Encounters Encounter ID Performer Location Encounter Start Date Encounter Closed Date Diagnosis/Indication Diagnosis SNOMED-CT Code Diagnosis ICD10 Code Diagnosis Note [id number] Leti Christianson [facility] [address],[place] [address] 05/26/2020 14:33:10 05/26/2020 15:42:48 Gynecologic examination 16448061 Z01.419 Menopausal symptom 87247 002 N95.1 Vitamin D deficiency 347 41128 E55.9 [id number] Leti Christianson [facility] [address],[place] [address] 02/02/2021 16:02:21 02/06/2021 23:45:45 Menopausal symptom 11565635 N95.1 [id number] Leti Christianson [facility] [address],[place] [address] 09/12/2021 17:46:28 09/13/2021 09:49:07 Gynecologic examination 52527242 Z01.419 [id number] Erin Marie [facility] [address],[place] [address] 09/18/2023 18:17:53 09/19/2023 08:45:03 Gynecologic examination 92530851 Z01.419 Take Calcium with Vitamin D 12-1500mg daily. Do monthly self breast exams. It is advised to get annual flu shot in the fall and she could obtain at [facility] or [facility]. If you haven't received the Tdap vaccine in the last 10 years you should obtain one as well. Have mammogram yearly, bone density every 2-3 years and colonoscop y every 5-10 years depending on findings and history. Engage in daily exercise of low impact aerobic exercise 45-60 minutes 4-5 times weekly. Avoid tobacco and illicit drugs as well as using moderation with alcohol intake less than 1-2 8 oz beverages daily. This lifestyle behavior pattern will lead to less health conditions and longer life span. If BMI greater than 25 weight watchers or dietary consult advised. Questions have been answered. Patient appears to understand instructio ns, but if you have any further questions call or respond to this email Pap/hpv q3-5yrs (due 2023) STD Screen declined Genetic Screen discussed Colon Screen UTD PCP Dexa Screen consider age 60yo Routine Labs ordered will stop by during regular business hours to completeHa ppy on SSRI/Wellb utrin for hot flashes. No issues. Adult heal th examination 905474370 Z00.00 Vitamin D deficiency 347 04811 E55.9 Screening mammography 24 920724 Z12.31 [id number] JASON Richard [facility] [address] [address] 04/19/2024 12:33:32 04/19/2024 14:48:44 Urinary symptoms 642687346 R39.9 urine cx sentrx sent for cipro - r/b/a reviewedav oid bladder irritants, encouraged adequate hydrationp recautions discussed Inconclusi ve mammography finding [id number] 88447 R92.2 needs additional right breast imaging - orderedord er given to pt, encouraged her to schedule thisquesti ons answered Time spent in visit is a total of 20 mins with at least 50% of visit consisting of counseling and review of plan of care. Health Concerns Section Related Observation LastModified by Organization Detai ls LastModified Time None Recorded Concern Status LastModified by Organization Details LastModified Time None Recorded Advance Directives Directive N: Payers Encounter Date Sequence Insurance Name Policy Number Policy Darling Covered Member ID Darling Member ID Guarantor Name 05/26/2020 1 [facility] - DOS PRIOR TO 2021 (MEDICAID REPLACEMENT - HMO) Mehreen Espino [id number] Mehreencolby Espino 02/02/2021 1 [facility] PRIOR TO 03/29/2021 (MEDICAID REPLACEMENT - HMO) Mehreencolby Espino [id number] Mehreenoclby Espino 09/12/2021 1 [facility] ON OR AFTER 03/29/21 (MEDICAID REPLACEMENT - HMO) Mehreen Espino [id number] Mehreencolby Espino 09/18/2023 1 [facility] ON OR AFTER 03/29/21 (MEDICAID REPLACEMENT - HMO) Mehreen Espino [id number] Mehreencolby Espino 04/19/2024 1 [facility] ON OR AFTER 03/29/21 (MEDICAID REPLACEMENT - HMO) Mehreencolby Espino [id number] Mehreencolby Espino Notes Date Note Type Note Provider Name and Address Organization Details Recorded Time 02/02/2021 text/html doing well on lexapro 20 but still having some bad hot flashes at night would like to add something, anxiety is so much improved Leti Christianson CNM [address], [place], [address], [facility] 02/02/2021 17:00:50 09/12/2021 text/html Annual GYNReport ed bypatient.Breast:No breast pain; No breast lump; No nipple discharge Sexual complaints:No sexual complaints; No pain during intercourse; Normal libido Menopausal Symptoms:No menopausal symptoms; Normal vaginal lubrication Psychological symptoms:No depression; No anxiety; No PMDD Preventive measures:Encourage self breast examination; Encourage regular exercise; Encourage no tobacco use; Encourage regular mammograms starting age 40Notes:up to date on mammogram and dexa, knee injury wearing brace on right no cycles vasomotor sxs resolved with meds also helping some anxiety that she had Leti Christianson CNM [address], [place], [address], [facility] 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 Post-MenopausalRepor paco bypatient.Menopausal Symptoms:no menopausal symptoms; normal vaginal lubrication Vaginal Bleeding:history of menopause having occurred; no history of post menopausal bleeding Urinary Symptoms:no hematuria; no incontinence; no nocturia; no urinary frequency Vulva:no genital lesion; no vulvar atrophy Vagina:normal vaginal discharge; no vaginal atrophy Breast:no breast lump; no nipple discharge; no breast pain Sexual Complaints:no sexual complaints Psychological Symptoms:no depression; no anxiety Preventive Measures:encourage regular mammograms starting age 40; encourage self breast examination; encourage regular exercise; encourage no tobacco use; needs to schedule mammogram; history of recent colonoscopy JASON Correa- [address], [place], [address], [facility] 09/18/2023 18:54:08 04/19/2024 text/html 58yopresents for urinary symptomsurinary frequency, burning x 2-3 weeksneg vaginal symptomsneg flank painsneg n/v/f screening mammogram done 03/2024 bi-rads 0, needs aditional right breast imaging JASON Richard [address], [place], [address], [facility] [facility]19/2024 14:32:49 OBGyn Episode No OBEpisode recorded.
--- OUTSIDE RECORDS SUMMARY | 2024-10-30 08:17 | XMS_ITS | CONTINUITY OF CARE DOCUMENT ---
Author Name kate love Address Unknown Organization [facility] Address [address] [address] [place] [address] Phone [phone] Care Team Providers Care Program Management Professional Name Role Phone Ildefonso Couch MD Unavailable KEON FELIPE MD Unavailable KEON FELIPE MD Unavailable [phone] PROBLEMS Condition Status Date Provider Notes ABNORMAL STRESS ECHO active Ildefonso Couch MD HTN CONTROLLED active Ildefonso Couch MD ENCOUNTERS Date Type Provider Location Encounter Diag nosis - In-person encounter Office Visit Ildefonso Couch MD [place] [facility] ABNORMAL STRESS ECHOHTN CONTROLLED VITAL SIGNS Date Observation Value Provider blood pressure, diastolic 68 mm[Hg] Nida seph Manacobrandon blood pressure, systolic 124 mm[Hg] Antione eph Manacobrandon pulse rate 87 /min Derek Alvarez oxygen saturation, oximetry 98 % Derek Alvarez respiratory rate E&M 16 /min Derek Manacobrandon weight E&M 132.4 [lb_av] Derek Manacobrandon height E&M 66.3 [in_i] Derek Prabhakaracobrandon ALLERGIES Allergy Name Onset Date Reaction Criticality Status SULFA Low Criticality active HISTORY OF MEDICATION USE Medication Status Instructions Dates Provider Indications Com ments LISINOPRIL 10 MG ORAL TABLET active 1 tablet by mouth daily Derek Alvarez ASPIRIN 325 MG ORAL TABLET active 1 tablet by mouth at bedtime Derek Alvarez SOCIAL HISTORY Date Observation Value Provider social history E&M Marital Statu s: L mauro alone E thnicity: Sukhdev Summers RN social history reviewed E&M reviewed Sukhdev Summers RN exercise type Walking, treadmi ll, eliptical Derek Manacop alcohol use, type Mixed drinks Derek Prabhakar acop drug use no Derek Manacop passive cigarette sm jose exposure no Derek Manacop smoking status never smoker Derek Prabhakaraco p physical exercise, f requency, days per week yes [employer] caffeine use, averag e drinks per day yes [employer] alcohol use, average drinks per day social basis only [employer] smoking status Non-smoker [employer] MENTAL STATUS Date Observation Value Provider assessment of judgme nt and insight E&M Alert and oriented to time, place and person. Mood and affect are normal. Sukhdev Summers RN INSURANCE PROVIDERS Payer name Policy type / Coverage type [place] [employer] ID [facility] [employer] insurance company [id number] TREATMENT PLAN Date Name Performer Chest pain, tightnes s:124/68 H er updated medication list for this problem includes: Aspirin 325 Mg Tabs (Aspirin) ..... 1 tablet by mouth at bedtime Lisinopril 10 Mg Tabs (Lisinopril) ..... 1 tablet by mouth daily Ildefonso Couch MD Chest pain, tightnes s: H er updated medication list for this problem includes: Aspirin 325 Mg Tabs (Aspirin) ..... 1 tablet by mouth at bedtime Lisinopril 10 Mg Tabs (Lisinopril) ..... 1 tablet by mouth daily H er ekg portion was abnormal but her echo portion was fine t his represents a false positive n o need for further cardiac work up. Ildefonso Couch MD
--- OUTSIDE RECORDS SUMMARY | 2024-10-30 08:17 | XMS_ITS | Data Portability ---
Author Organization [facility], Main Office Address [address] [place] [address] Assessment Encounter Date Assessment Date Assessment LastModified by Organization Details LastModified Time 12/17/2022 12/17/2022 This note is dictated and transcribed by [employer]. Foil Sp[employer]er variances may occur. Despite proofreading, typographical errors may occur. [email or web address] Not available 12/18/2022 14:00:48 Plan of Treatment Reminders Order Date Submit Date Provider Last Modified By Organization Details Last Modified Time Details Appointments None record ed. Lab None record ed. Referral None record ed. Procedures None record ed. Surgeries None record ed. Imaging None record ed. Medication Orders None record ed. Patient TargetsNo targets recorded. Patient InstructionsNo instructions recorded. Reason for Referral None Reported. Results Created Date Observation Date Name Description Value Unit Range Abnormal Flag Note LastModifiedBy Organization Detail LastModifiedTime 03/14/20 22 03/25/2022 BRANDEE WET PREP brandee see commen t TEST NOT PERFO RMED TEST TO BE CREDI MARY. Not Available [facility] (Lab) [address] [place], [address], 03/25/2022 16:03:58 03/14/20 22 03/25/2022 BRANDEE WET PREP confirm see commen t Not Available [facility] (Lab) [address] [place], [address], 03/25/2022 16:03:58 Result Notes None recorded. Problems Name Problem SNOMED Code Status Onset Date Resolution Date Notes Provider Name and Address Organization Details Recorded Time Pain in left foot 4368304933409 07 Active Not Available [facility] 03/01/202 3 18:06:07 Onychomyco sis of toenails 944498957 Active [address] [facility] 3 18:06:07 Neuroma of foot 874245520 Active Not Available [facility] 3 18:06:07 Problem Notes None recorded. Medical Equipment None Reported. Allergies Allergen ID Allergen Name Allergen Category Reaction Reaction Severity Criticality Documentation Date Start Date Code Code System Note Provider Name and Address Organization Details Recorded Time 71660 Substance with sulfonami de structure and antibacte rial mechanism of action (substanc e) medicatio n hives Not available Not available 11/27/2022 [address] [facility] 3 18:07:20 Medications Name Sig Start Date Stop Date Status Note LastModified by Organization Details LastModified Time paroxetine 10 mg tablet 08/01 completed Not Available Not Available Not Available azithromyci n 250 mg tablet 08/01 completed Not Available Not Available Not Available hydrocodone 5 mg-acetamin ophen 325 mg tablet TAKE 1 TABLET BY MOUTH EVERY 4 TO 6 HOURS NEEDED active Not Available Not Available No t Available prednisone 20 mg tablet 08/01 completed Not Available Not Available Not Available ciprofloxac in 500 mg tablet TAKE 1 TABLET BY MOUTH EVERY 12 HOURS FOR 7 DAYS active Not Available Not Available No t Available omeprazole 40 mg capsule,del ayed release TAKE 1 CAPSULE BY MOUTH DAILY active Not Available Not Available No t Available doxycycline monohydrate 100 mg tablet active Not Available Not Available Not Available terbinafine HCl 250 mg tablet TAKE 1 TABLET BY MOUTH EVERY DAY active Not Available Not Available No t Available Deep Sea Nasal 0.65 % spray aerosol active Not Available Not Available Not Available cephalexin 500 mg capsule TAKE 1 CAPSULE BY MOUTH EVERY 8 HOURS active Not Available Not Available No t Available paroxetine 20 mg tablet 04/18 completed Not Available Not Available Not Available promethazin e 25 mg tablet TAKE 1 TABLET BY MOUTH EVERY 6 HOURS NEEDED active Not Available Not Available No t Available omeprazole 20 mg capsule,del ayed release TAKE 1 CAPSULE BY MOUTH TWICE A DAY active Not Available Not Available No t Available ergocalcife rol (vitamin D2) 1,250 mcg (50,000 unit) capsule TAKE 1 CAPSULE EVERY WEEK BY ORAL ROUTE. active Not Available Not Available No t Available oxycodone-a cetaminophe n 7.5 mg-325 mg tablet TAKE 1/2 - 1 TABLETS BY MOUTH ONCE EVERY 4-6 HOURS NEEDED FOR PAIN, MAX 4 TABLETS PER DAY active Not Available Not Available No t Available methylpredn isolone 4 mg tablets in a dose pack active Not Available Not Available Not Available ketoconazol e 2 % topical cream APPLY TO THE AFFECTED TOENAILS ONCE DAILY active Not Available Not Available No t Available cefdinir 300 mg capsule active Not Available Not Available Not Available fluticasone propionate 50 mcg/actuati on nasal spray,suspe nsion SPRAY 1 - 2 SPRAYS IN TO EACH NOSTIL TWICE A DAY active Not Available Not Available No t Available amoxicillin 875 mg-potassiu m clavulanate 125 mg tablet TAKE 1 TABLET BY MOUTH TWICE A DAY WITH FOOD active Not Available Not Available No t Available Ventolin HFA 90 mcg/actuati on aerosol inhaler 08/01 completed Not Available Not Available Not Available NuvaRing 0.12 mg-0.015 mg/24 hr vaginal 08/01 completed Not Available Not Available Not Available escitalopra m 20 mg tablet TAKE 1 TABLET BY MOUTH EVERY DAY active Not Available Not Available No t Available bupropion HCl XL 150 mg 24 hr tablet, extended release TAKE 1 TABLET BY MOUTH EVERY DAY active Not Available Not Available No t Available Tri-Sprinte c (28) 0.18 mg(7)/0.215 mg(7)/0.25 mg(7)-35 mcg tablet 08/01 completed Not Available Not Available Not Available chlorhexidi ne gluconate 0.12 % mouthwash RINSE MOUTH WITH 15ML (1 CAPFUL) FOR 30 SECONDS IN MORNING AND EVENING AFTER BRUSHING, THEN SPIT active Not Available Not Available No t Available buspirone 2021 active Not Available Not Available Not Avai lable Prevacid 2021 active Not Available Not Available Not Avai lable Lexapro 2021 active Not Available Not Available Not Avai lable Vitals Date Recorded Body mass index (BMI) Body height Body height Body height Body height Oxygen saturation Oxygen saturation in Arterial blood by Pulse oximetry Systolic blood pressure Diastolic blood pressure Systolic blood pressure Diastolic blood pressure Systolic blood pressure Diastolic blood pressure Systolic blood pressure Diastolic blood pressure Provider Name and Address Organization Details Last Updated DateTime 24.2 kg/m2 167.64 cm 167.64 cm 167.64 cm 167.64 cm 98 % 98 % 145 mm[Hg] 92 mm[Hg] 128 mm[Hg] 84 mm[Hg] 122 mm[Hg] 78 mm[Hg] 135 mm[Hg] 73 mm[Hg] Not Available [facility] 18:05:23 Date Recorded Heart rate Heart rate Heart rate Heart rate Body weight Provider Name and Address Organization Details Last Updated DateTime 11/27/2022 106 /min 90 /min 83 /min 83 /min [address] [facility] 11/27/2022 18:05:24 Date Recorded Body height Provider Name an d Address Organization Details Last Updated DateTime 12/17/2022 167.64 cm Deisy Isai [facility] 12/17/2022 17:56:34 Date Recorded Heart rate Provider Name an d Address Organization Details Last Updated DateTime 12/17/2022 75 /min Deisy Isai [employer] [facility] 12/17/2022 17:56:43 Date Recorded Respiratory rate Provider Name a nd Address Organization Details Last Updated DateTime 12/17/2022 14 /min Deisy Isai [employer] [facility] 12/17/2022 17:56:47 Date Recorded Oxygen saturation Oxygen saturation in Arterial blood by Pulse oximetry Provider Name and Address Organization Details Last Updated DateTime 12/17/2022 99 % 99 % Deisy Alex Qteros 12/17/2022 17:56:49 Date Recorded Systolic blood pressure Diastolic blood pressure Provider Name and Address Organization Details Last Updated DateTime 12/17/2022 139 mm[Hg] 75 mm[Hg] Deisy Alex [employer] [facility] 12/17/2022 17:56:39 Social History Question Answer Notes LastModified by Organizat ion Details LastModified Time Tobacco Smoking Status Never Smoker Not Available [facility] 11/27/2022 18:04:48 What Is Your Level Of Alcohol Consumption? None [id number] Information not available 11/27/2022 What Is Your Level Of Caffeine Consumption? Occasional [id number] Information not available 11/27/2022 What Was The Date Of Your Most Recent Tobacco Screening? 03/14/2022 [id number] Information not available 11/27/2022 Do You Use Any Illicit Or Recreational Drugs? No [id number] Information not available 11/27/2022 Has Tobacco Cessation Counseling Been Provided? No [id number] Information not available 11/27/2022 Do You Or Have You Ever Used Any Other Forms Of Tobacco Or Nicotine? No [id number] Information not available 11/27/2022 Sex: Unknown Functional Status None recorded. Mental Status None recorded. Family History Nothing Reported. Medical History Condition Response ARTHRITIS Y Gynecological HistoryNo gynecological history recorded. Obstetrics History GPAL:G 0 P 0 0 0 0 Immunizations Vaccine Type Date Status Note Provider Nam e and Address Organization Details Recorded Time Influenza, high-dose, trivalent, PF 09/29/2014 completed Not Available [facility] 2022 18:07:18 Past Encounters Encounter ID Performer Location Encounter Start Date Encounter Closed Date Diagnosis/Indication Diagnosis SNOMED-CT Code Diagnosis ICD10 Code Diagnosis Note [id number] [facility] [address], [address] [address] 03/14/2022 00:00:00 03/27/2022 13:14:44 [id number] [facility] [place] [address] [place] [address], [address] [address] 04/18/2022 00:00:00 04/23/2022 13:32:41 [id number] [facility] [place] [address] [place] [address], [address] [address] 05/16/2022 00:00:00 05/16/2022 17:55:01 [id number] [facility] [place] [address] [place] [address], [address] [address] 07/18/2022 00:00:00 07/18/2022 17:45:03 [id number] Russell Logan DPM [facility] [place] [address] [place] [address], [address] [address] 12/17/2022 17:52:16 12/19/2022 11:32:45 Onychomycosis of toenails 866559321 B35.1 Onychomyco sis resolvedDC ketoconazo lecontinue perform daily foot hygiene and shoe hygiene to prevent recurrence Follow-up as needed Health Concerns Section Related Observation LastModified by Organization Detai ls LastModified Time None Recorded Concern Status LastModified by Organization Details LastModified Time None Recorded Advance Directives Directive None Recorded Payers Encounter Date Sequence Insurance Name Policy Number Policy Darling Covered Member ID Darling Member ID Guarantor Name 12/17/2022 1 [facility] - DOS ON OR AFTER 21 (MEDICAID REPLACEMENT - HMO) Mehreen Espino [id number] Mehreen Espino Notes Date Note Type Note Provider Name and Address Organization Details Recorded Time 12/17/2022 text/html . Patient is a 57-year-old female who returns the office for follow-up on onychomycosis of bilateral great toenails. Patient has regrown the nails and they have returned complete normal toenails with no continued thickening, dystrophy or subungual debris. Patient again DC using ketoconazole foot was educated on continuing daily hygiene to prevent recurrence of foot fungus. Patient denies any other pedal complaints. Russell Logan DPM [address] [facility], [facility] [address], [place], [address], [facility] [employer] [facility] 12/18/2022 14:02:23 OBGyn Episode No OBEpisode recorded.
--- OUTSIDE RECORDS SUMMARY | 2024-10-30 08:17 | XMS_ITS | Clinical Summary ---
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 Gender Identity Not on file Sexual Orientation Not on file Plan of Treatment Health Maintenance Due Date Last Done Comments DTAP/TDAP/TD VACCINES (1 - Tdap) 1984 HEPATITIS B VACCINES (1 of 3 - 19+ 3-dose series) 1984 CERVICAL CANCER SCREENING 1995 BREAST CANCER SCREENING 2005 COLORECTAL SCREENING 2010 Colorectal Cancer Screening 2010 FIT-DNA Q 3 years 2010 FIT/FOBT Q 1 year 2010 Flex Sig/CT Colonography Q 5 years 2010 ZOSTER VACCINE (1 of 2) 2015 INFLUENZA VACCINE (#1) 2024 PNEUMOCOCCAL VACCINE 0-64 YEARS Aged Out No longer eligible based on patient's age to complete this topic Insurance [employer] (INTERNAL) [facility]
--- OUTSIDE RECORDS SUMMARY | 2024-10-30 08:18 | XMS_ITS | Patient Health Summary ---
Author Organization [facility] Address [address] [place] [address] Care Team Providers Care Customer Strategy Manager Name Role Phone Ron Awad MD Primary Care Provider [phone] Note from [facility],non-owned Affiliates and Associated Physician Practices is amultiple site organization consisting of ambulatory clinics and hospital sitesin [place], [place], [place] and [place]. This disclosure is being madepursuant to the Care Everywhere program and may not contain all information available regarding this patient. Last updated 18.[facility] Allergies * Paroxetine(Other) * Sulfa Drugs(Rash) -Low Criticality Medications * Be aware that medications may not be up to date on this document. Alwaysverify current medications with the patient. * Cetirizine HCl (ZYRTEC ALLERGY PO) Take 10 mg by mouth once daily * fluticasone propionate (FLONASE) 50 MCG/ACT nasal spray(Started 04/11/2017) Soso 1 Soso into each nostril 2 times daily 1 refill remaining * escitalopram (LEXAPRO) 20 MG tablet Take 1 (one) tablet by mouth once daily * vitamin D, ergocalciferol, (DRISDOL) 1.25 MG (62797 UT) capsule(Started 04/03/2022) TAKE 1 CAPSULE EVERY WEEK BY ORAL ROUTE. * buPROPion XL 24hr (Wellbutrin-XL) 150 MG tablet(Started 07/24/2022) Take 1 (one) tablet by mouth once daily * ketoconazole (Nizoral) 2 % cream(Started 09/04/2022) APPLY TO THE AFFECTED AREA(S) TOENAILS BY TOPICAL ROUTE ONCE DAILY * omeprazole (PriLOSEC) 20 MG capsule(Started 08/01/2022) TAKE 1 CAPSULE BY MOUTH TWICE A DAY * doxycycline monohydrate 100 MG tablet(Started 12/15/2022) 100 MG ORALLY TWICE A DAY * methylPREDNISolone (Medrol Dosepak) 4 MG tablet(Started 12/15/2022) TAKE 6 TABLETS ON DAY 1 DIRECTED ON PACKAGE AND DECREASE BY 1 TAB EACH DAY FOR A TOTAL OF 6 DAYS Active Problems Problem Noted Date Diagnosed Date Nasal septal deviation 04/10/2022 Nasal valve collapse 04/10/2022 Hypertrophy of both inferior nasal turbinates Essential (primary) hypertension 07/09/2012 Immunizations * INFLUENZA VACCINE, HIGH-DOSE, QUADR. (FLUZONE HIGH-DOSE QUADRIVALENT; 65Y+), 0.7 ML (HD-IIV4)(Given 09/29/2014) * INFLUENZA VACCINE, QUADR. (FLUZONE; FLULAVAL; FLUARIX; AFLURIA QUADRIVALENT; 6MO+), 0.5 ML (IIV4)(Given 07/12/2020) Social History Tobacco Use Types Packs/Day Years Used Date Smoking Tobacco: Never Smokeless Tobacco: Never Alcohol Use Standard Drinks/Week Comments Yes 0 (1 standard drink = 0.6 oz pur e alcohol) occassional wine on holidays Sex and Gender Information Value Date Recorded Sex Assigned at Not on file Gender Identity Not on file Sexual Orientation Not on file Last Filed Vital Signs Vital Sign Reading Time Taken Comments Blood Pressure 111/75 07/19/2022 2:15 PM CDT Pulse 108 07/19/2022 2:15 PM CDT Temperature 37 ??C (98.6 ??F) 07/19/2022 1:56 PM CDT Respiratory Rate 17 07/19/2022 2:15 PM CDT Oxygen Saturation 97% 07/19/2022 2:15 PM CDT Inhaled Oxygen Concentration - - Weight 68.6 kg (151 lb 3.2 oz) 07/19/2022 8:53 A M CDT Height 167.6 cm (5' 6 ) 07/19/2022 8:53 AM CDT Body Mass Index 24.4 07/19/2022 8:53 AM CDT Procedures * ID REPAIR OF NASAL SEPTUM(Performed 07/19/2022) Performed for Nasal valve blockage * RECONSTRUCTION/REPAIR NASAL(Performed 07/19/2022) Performed for Nasal valve blockage * ENDOTRACHEAL TUBE NOTE(Performed 07/19/2022) Results * ETT LINE PERFORMABLE (07/19/2022 11:07 AM CDT) Narrative Bryant Romero Anes Asst - 07/19/2022 11:07 AM CDT Bryant Romero Anes Asst ? 07/19/2022 11:17 AM Endotracheal Tube Placement: ? Patient Location: OR. Intubation Event Date/Time: ??07/19/2022 11:07 AM Procedure: intubation (00887). Procedure Section: ?? Sedation: under general anesthesia. Indications for Airway Management: ??anesthesia Procedure pretreatments used? ??No Induction: standard IV Patient Position: ??sniffing and supine Mask Ventilation: easy with oral airway. Blade Type: Video Blade Size: 3 Laryngoscopy View: grade 1 (full cords) Intubation Adjuncts: stylet Tube: CARLY tube Placement: oral Tube type: cuff - inflated Tube Size (MM): 7 Depth of Insertion (CM): 21 Measured From: teeth Cuff Inflated With: air Number of Attempts: 1. Placement Verified By: bilateral breath sounds, chest auscultation, CO2 monitor and CO2 detector Tube secured with: ??adhesive tape. Dentition unchanged? ??Yes Difficult Airway? ??No. Procedure Start Time: 07/19/2022 11:07 AM. Staff Section ? Anesthesia Provider: Bryant Romero Anes Asst, Performed the procedure ? Provider #1: Randy Amaya II, MD. Additional Comments: Atraumatic intubation, dentition as in pre-op. Randy Amaya II, MD GENERAL ANESTHESIA ORDERABLES Care Teams Customer Strategy Manager Relationship Specialty Start Date End Date Ron Awad MD [address] [place] [address] [facility] - General 07/22/22
--- OUTSIDE RECORDS SUMMARY | 2024-10-30 08:18 | XMS_ITS | Clinical Summary ---
Author Organization [facility] [employer] Address [address] [place] [address] Care Team Providers Care Derrick Worker Well Service Name Role Phone Ron Awad MD Primary Care Provider [phone] Source Comments [facility],non-owned Affiliates and Associated Physician Practices is amultiple site organization consisting of ambulatory clinics and hospital sitesin [place], [place], [place] and [place]. This disclosure is being madepursuant to the Care Everywhere program and may not contain all information available regarding this patient. Last updated 18.[facility] [employer] Allergies Active Allergy Reactions Criticality Noted Date Comments Paroxetine Other 04/10/2022 Fatigue Sulfa Drugs Rash Low 05/29/2016 Blister's around the mount Medications * Be aware that medications may not be up to date on this document. Alwaysverify current medications with the patient. Medication Sig Dispensed Refills Start Date End Date Status Cetirizine HCl (ZYRTEC ALLERGY PO) Take 10 mg by mouth once daily Active fluticasone propionate (FLONASE) 50 MCG/ACT nasal sprayIndications:Acut e pansinusitis, recurrence not specified [place] 1 [place] into each nostril 2 times daily 1 Bottle 1 04/11/2017 Active escitalopram (LEXAPRO) 20 MG tablet Take 1 (one) tablet by mouth once daily Active vitamin D, ergocalciferol, (DRISDOL) 1.25 MG (17049 UT) capsule TAKE 1 CAPSULE EVERY WEEK BY ORAL ROUTE. 04/03/2022 Active buPROPion XL 24hr (Wellbutrin-XL) 150 MG tablet Take 1 (one) tablet by mouth once daily 07/24/2022 Active ketoconazole (Nizoral) 2 % cream APPLY TO THE AFFECTED AREA(S) TOENAILS BY TOPICAL ROUTE ONCE DAILY 09/04/2022 Active omeprazole (PriLOSEC) 20 MG capsule TAKE 1 CAPSULE BY MOUTH TWICE A DAY 08/01/2022 Active doxycycline monohydrate 100 MG tablet 100 MG ORALLY TWICE A DAY 12/15/2022 Active methylPREDNISolone (Medrol Dosepak) 4 MG tablet TAKE 6 TABLETS ON DAY 1 DIRECTED ON PACKAGE AND DECREASE BY 1 TAB EACH DAY FOR A TOTAL OF 6 DAYS 12/15/2022 Active Active Problems Problem Noted Date Diagnosed Date Nasal septal deviation 04/10/2022 Nasal valve collapse 04/10/2022 Hypertrophy of both inferior nasal turbinates Essential (primary) hypertension 07/09/2012 Immunizations Name Administration Dates Next Due INFLUENZA VACCINE, HIGH-DOSE , QUADR. (FLUZONE HIGH-DOSE QUADRIVALENT; 65Y+), 0.7 ML (HD-IIV4) 09/29/2014 INFLUENZA VACCINE, QUADR. (F LUZONE; FLULAVAL; FLUARIX; AFLURIA QUADRIVALENT; 6MO+), 0.5 ML (IIV4) 07/12/2020 Social History Tobacco Use Types Packs/Day Years [...] Mass Index 24.4 07/19/2022 8:53 AM CDT Plan of Treatment Health Maintenance Due Date Last Done Comments COLOGUARD (AGES 45-75) - COL ON CA SCREENING 1965 COLON MONITORING 1965 COLONOSCOPY - COLON CA SCREENING 1965 CT COLONOGRAPHY - COLON CA SCREENING 1965 Colorectal Cancer Screening 1965 FIT - COLON CA SCREENING 1965 FLEX SIG - COLON CA SCREENING 1965 LIPID TESTING 1965 MAMMOGRAM 1965 PAP SMEAR 1965 HIV SCREENING 1980 HEPATITIS C SCREENING 05/14/1983 DTAP/TDAP/TD VACCINES (1 - Tdap) 1984 HEPATITIS B VACCINE (1 of 3 - 19+ 3-dose series) 1984 PNEUMOCOCCAL VACCINE 50+ (1 of 1 - PCV) 2015 ZOSTER VACCINE (1 of 2) 2015 COVID-19 VACCINE (1 - 2023-2 5 season) 2024 INFLUENZA VACCINE (#1) 2024 0, 09/29/2014 DEPRESSION SCREENING 09/29/2024 HIB VACCINE Aged Out No longer eligi ble based on patient's age to complete this topic HPV VACCINE Aged Out No longer eligi ble based on patient's age to complete this topic MENINGOCOCCAL (Group B) VACCINE Aged Out No longer eligible b ased on patient's age to complete this topic MENINGOCOCCAL VACCINE Aged Out No rahel ashley eligible based on patient's age to complete this topic PNEUMOCOCCAL VACCINE Aged Out No long er eligible based on patient's age to complete this topic Care Teams Derrick Worker Well Service Relationship Specialty Start Date End Date Ron Awad MD [address] [place] [address] PCP - General 07/22/22
--- OUTSIDE RECORDS SUMMARY | 2024-10-30 08:18 | XMS_ITS | Referral Summary ---
Author Organization [facility] Address [address] [place] [address] Care Team Providers Care Nitrocellulose Maker Name Role Phone Ron Awad MD Primary Care Provider [phone] Source Comments [facility],non-owned Affiliates and Associated Physician Practices is amultiple site organization consisting of ambulatory clinics and hospital sitesin [place], [place], [place] and [place]. This disclosure is being madepursuant to the Care Everywhere program and may not contain all information available regarding this patient. Last updated 18.[facility] Allergies Active Allergy Reactions Criticality Noted Date [...] nasal sprayIndications:Acut e pansinusitis, recurrence not specified [place] 1 [place] into each nostril 2 times daily 1 Bottle 1 04/11/2017 Active escitalopram (LEXAPRO) 20 MG tablet Take 1 (one) tablet by mouth once daily Active vitamin D, ergocalciferol, (DRISDOL) 1.25 MG (15081 UT) capsule TAKE 1 CAPSULE EVERY WEEK [...] 07/19/2022 8:53 AM CDT Plan of Treatment Not on file Care Teams Nitrocellulose Maker Relationship Specialty Start Date End Date Ron Awad MD [address] [place] [id number] PCP - General 07/22/22
== END 2024-10-30 08:14 | disposition home or self-care (01) ==
PROVIDERS: PCP Family Medicine; Visit Provider Nurse Practitioner
DX: R93.89 Abnormal findings on diagnostic imaging of other specified body structures (principal)
CPT/HCPCS: 71250

== ENCOUNTER 2024-12-31 07:15 | Outpatient (CLI) | payer OTHER, SELFPAY ==
--- OUTSIDE RECORDS SUMMARY | 2024-12-31 07:20 | XMS_ITS | Clinical Summary ---
Author Organization [facility] Address [address] [place] [address] Phone Care Team Providers Care Fuel Pilot Engineer Name Role Phone Unavailable Primary Care Provider Unavailabl e Encounters Date Type Department Care Team Description 10/05/2024 External Device Data STL ABSTRACTION Provider, Abstract from Last 3 Months Social History Tobacco Use Types Packs/Day Years Used Date Smoking Tobacco: Never Assessed Comments Unknown Sex and Gender Information Value Date Recorded Sex Assigned at Not on file Legal Sex Female 3:16 AM DIVISION DIRECTOR Gender Identity Not on file Sexual Orientation Not on file Plan of Treatment Health Maintenance Due Date Last Done Comments DTAP/TDAP/TD VACCINES (1 - Tdap) 1984 HEPATITIS B VACCINES (1 of 3 - 19+ 3-dose series) 1984 HPV/Cotest (21-29) 1986 PAP SMEAR 1986 CERVICAL CANCER SCREENING 1995 HPV/Cotest (30-65) 1995 PAP SMEAR 1995 BREAST CANCER SCREENING 2005 COLORECTAL SCREENING 2010 Colorectal Cancer Screening 2010 FIT-DNA Q 3 years 2010 FIT/FOBT Q 1 year 2010 Flex Sig/CT Colonography Q 5 years 2010 ZOSTER VACCINE (1 of 2) 2015 INFLUENZA VACCINE (#1) 2024 PNEUMOCOCCAL VACCINE 0-49 YEARS Aged Out No longer eligible based on patient's age to complete this topic Insurance [facility] [employer] Commercial RX WAGNER PLANS (INTERNAL) [facility]
--- OUTSIDE RECORDS SUMMARY | 2024-12-31 07:20 | XMS_ITS | Encounter Summary ---
Author Organization [facility] Address [address] [place] [address] Care Team Providers Care Sales Enablement Analyst Name Role Phone Unavailable Primary Care Provider Unavailabl e Encounter Details Date Type Department Care Team (Late st Contact Info) Description 12/10/1999 [facility] Levar Calle MD [address] [place] [address] Social History Tobacco Use Types Packs/Day Years Used Date Smoking Tobacco: Never Assessed Comments Unknown Sex and Gender Information Value Date Recorded Sex Assigned at Not on file Legal Sex Female 3:16 AM CENTRAL OFFICE INSTALLER Gender Identity Not on file Sexual Orientation Not on file documented as of this encounter Plan of Treatment Not on file documented as of this encounter Visit Diagnoses Not on filedocumented in this encounter
--- OUTSIDE RECORDS SUMMARY | 2024-12-31 07:20 | XMS_ITS | CONTINUITY OF CARE DOCUMENT ---
Author Name kate love Address Unknown Organization [facility] Address [address] [place] [address] Phone [phone] Care Team Providers Care Hay Stacker Name Role Phone Ildefonso Couch MD Unavailable [phone] KEON FELIPE MD Unavailable KEON FELIPE MD Unavailable [phone] PROBLEMS Condition Status Date Provider Notes HTN CONTROLLED active Ildefonso Couch MD ABNORMAL STRESS ECHO active Ildefonso Couch MD ENCOUNTERS Date Type Provider Location Encounter Diag nosis - In-person encounter Office Visit Ildefonso Couch MD [facility] ABNORMAL STRESS ECHOHTN CONTROLLED VITAL SIGNS Date Observation Value Provider blood pressure, diastolic 68 mm[Hg] Nida seph [place] blood pressure, systolic 124 mm[Hg] Antione eph [place] pulse rate 87 /min Derek Alvarez oxygen [...] Payer name Policy type / Coverage type [place] red democrat ID [facility] [employer] insurance company [id number] TREATMENT PLAN Date Name Performer Chest pain, [...]
--- OUTSIDE RECORDS SUMMARY | 2024-12-31 07:20 | XMS_ITS | Encounter Summary ---
Author Organization [facility] Address [address] [place] [address] Care Team Providers Care Recruitment Manager Name Role Phone Unavailable Primary Care Provider Unavailabl e Encounter Details Date Type Department Care Team (Late st Contact Info) Description 04/13/1999 Outpatient [facility] Jesus Lin MD [address] [place] [address] Allergic rhinitis due to pollen (Primary Dx) Social History Tobacco Use Types Packs/Day Years Used Date Smoking Tobacco: Never Assessed Comments Unknown Sex and Gender Information Value Date Recorded Sex Assigned at Not on file Legal Sex Female 3:16 AM ACCOUNTING SYSTEMS MANAGER Gender Identity Not on file Sexual Orientation Not on file documented as of this encounter Plan of Treatment Not on file documented as of this encounter Visit Diagnoses Diagnosis Allergic rhinitis due to pollen- Primary documented in this encounter
--- OUTSIDE RECORDS SUMMARY | 2024-12-31 07:20 | XMS_ITS | Clinical Summary ---
Author Organization [facility] Address [address], [address] [address] Phone Care Team Providers Care Drywall Sprayer Name Role Phone Unavailable Primary Care Provider [...]
--- OUTSIDE RECORDS SUMMARY | 2024-12-31 07:20 | XMS_ITS | Encounter Summary ---
Author Organization [facility] Address [address] [place] [address] Care Team Providers Care Parent Trainer Name Role Phone Unavailable Primary Care Provider Unavailabl e Encounter Details Date Type Department Care Team (Late st Contact Info) Description 08/31/1998 Outpatient [facility] Jesus Lin MD [address] [place] [address] Unspecified sinusitis (chronic) (Primary Dx) Social History Tobacco Use Types Packs/Day Years Used Date Smoking Tobacco: Never Assessed Comments Unknown Sex and Gender Information Value Date Recorded Sex Assigned at Not on file Legal Sex Female 3:16 AM REPORTING PROCESS CONSULTANT Gender Identity Not on file Sexual Orientation Not on file documented as of this encounter Plan of Treatment Not on file documented as of this encounter Visit Diagnoses Diagnosis Unspecified sinusitis (chronic)- Primary documented in this encounter
--- OUTSIDE RECORDS SUMMARY | 2024-12-31 07:20 | XMS_ITS | Continuity of Care Document ---
Author Organization [facility] Address [address] [place] [address] Phone Care Team Providers Care Puzzle Assembler Name Role Phone Hallie Haynes Unavailable Unavailable Procedures Procedure Date Special Reports Or Forms Advance Directives Directive Yes / No Effective Date File Name No Information Encounters Encounter Description Practice Location Reason(s) For Visit Diagnoses Date Provider Providers Copied on Encounter [facility], [address], [place], [place], [id number], [place] tel:[phone] [address] [facility] No Information [address]. [address] , [address], [place], [address], [place]. tel:[phone] Family History Family Member Type Diagnosis Age At Onset No Information Payers Payer name Insurance type Covered alliance party ID Authoriza tion(s) No Information Social History [...]
--- OUTSIDE RECORDS SUMMARY | 2024-12-31 07:20 | XMS_ITS | Encounter Summary ---
Author Organization [facility] Address [address] [place] [address] Care Team Providers Care Naval Gunfire Liaison Officer Name Role Phone Unavailable Primary Care Provider Unavailabl e Encounter Details Date Type Department Care Team (Late st Contact Info) Description 08/13/1999 Outpatient [facility] Levar Calle MD [address] [place] [address] Social History Tobacco Use Types Packs/Day Years Used Date Smoking Tobacco: Never Assessed Comments Unknown Sex and Gender Information Value Date Recorded Sex Assigned at Not on file Legal Sex Female 3:16 AM CORE DRIER Gender Identity Not on file Sexual Orientation Not on file documented as of this encounter Plan of Treatment Not on file documented as of this encounter Visit Diagnoses Not on filedocumented in this encounter
--- OUTSIDE RECORDS SUMMARY | 2024-12-31 07:21 | XMS_ITS | Clinical Summary ---
Author Organization [facility] [employer] Address [address] [place] [address] Care Team Providers Care Associate Director Of Nursing Name Role Phone Ron Awad MD Primary Care Provider [phone] Source Comments [facility],non-owned Affiliates and Associated Physician Practices is amultiple site organization consisting of ambulatory clinics and hospital sitesin [place], [place], [place] and [place]. This disclosure is being madepursuant to the Care Everywhere program and may not contain all information available regarding this patient. Last updated 18.[facility] [employer] Allergies Active Allergy Reactions Criticality Noted Date [...] nasal sprayIndications:Acut e pansinusitis, recurrence not specified [place] 1 [place] into each nostril 2 times daily 1 Bottle 1 04/11/2017 Active escitalopram (LEXAPRO) 20 MG tablet Take 1 (one) tablet by mouth once daily Active vitamin D, ergocalciferol, (DRISDOL) 1.25 MG (52310 UT) capsule TAKE 1 CAPSULE EVERY WEEK [...] 108 07/19/2022 2:15 PM CDT Temperature 37 C (98.6 F) 07/19/2022 1:56 PM CDT Respiratory Rate 17 [...] complete this topic MENINGOCOCCAL (Group B) VACCINE SHARED DECISION-MAKING Aged Out No longer eligible based on patient's age to complete this topic MENINGOCOCCAL GROUPS A/C/Y/W VACCINE Aged Out No longer eligible b ased on patient's age to complete this topic PNEUMOCOCCAL VACCINE Aged Out No long er eligible based on patient's age to complete this topic Care Teams Associate Director Of Nursing Relationship Specialty Start Date End Date Ron Awad MD [address] [place] [id number] PCP - General 07/22/22
[2024-12-31 08:00] LABS: Alanine Aminotransferase 15 U/L (6-35); Albumin Level 4.5 g/dL (3.5-5.1); Alkaline Phosphatase 75 U/L (38-126); Anion Gap 7 mmol/L (4-12); Aspartate Amino Transferase 20 U/L (14-36); Bilirubin,Total 0.5 mg/dL (0.2-1.3); Blood Urea Nitrogen 16 mg/dL (7-17); Calcium 9.1 mg/dL (8.4-10.2); Carbon Dioxide 28 mmol/L (22-30); Chloride 97 mmol/L (98-107); Cholesterol 208 mg/dL (0-200); Estimated Glomerular Filt Rate > 60; Glucose 94 mg/dL (65-110); HDL Direct 85 mg/dL; Potassium 4.8 mmol/L (3.4-5.0); Sodium 132 mmol/L (137-145); Triglycerides 61 mg/dL (<150)
[2024-12-31 08:11] LABS: LDL Cholesterol Direct 88 mg/dL
[2024-12-31 08:13] LABS: Hemoglobin A1C 5.5 % (<5.7)
== END 2024-12-31 07:16 | disposition home or self-care (01) ==
LOC: ANHLAB 07:16
PROVIDERS: PCP Family Medicine; Visit Provider Nurse Practitioner
DX: E78.5 Hyperlipidemia, unspecified (principal); I10 Essential (primary) hypertension; R73.03 Prediabetes
CPT/HCPCS: 36415; 80053; 80061; 83036

== ENCOUNTER 2025-03-25 06:41 | Outpatient (CLI) | payer OTHER, SELFPAY ==
[2025-03-25 08:18] LABS: Basophils Absolute Auto 0.1 K/mm3 (0.0-0.1); Basophils Percent Auto 1.3 % (0.2-1.2); Eosinophils Absolute Auto 0.1 K/mm3 (0-0.3); Hematocrit 40.3 % (37.0-47.0); Immature Granulocyte Absolute 0.03 K/mm3 (0.00-0.031); Immature Granulocyte Percent A 0.8 % (0-0.5); Lymphocytes Absolute Auto 0.77 K/mm3 (0.9-3.2); Lymphocytes Percent Auto 19.6 % (18.3-44.2); Mean Corpuscular HGB Conc 32.3 g/dl (32-36); Mean Corpuscular Hemoglobin 29.1 pg (26-34); Mean Corpuscular Volume 90.4 fl (80-100); Mean Platelet Volume 10.2 fl (7.4-10.4); Monocytes Absolute Auto 0.4 K/mm3 (0.1-0.6); Monocytes Percent Auto 9.4 % (2.6-8.5); Neutrophils Absolute Auto 2.6 K/mm3 (1.3-6.7); Neutrophils Percent Auto 66.9 % (45.5-73.1); Platelet Count Result 280 k/mm3 (150-375); Red Blood Count 4.46 M/mm3 (4.2-5.4); Red Cell Distribution Width 13.2 % (11.5-14.5); White Blood Count 3.9 K/mm3 (4.5-10.0)
[2025-03-25 08:30] LABS: Alanine Aminotransferase 18 U/L (6-35); Albumin Level 4.4 g/dL (3.5-5.1); Alkaline Phosphatase 67 U/L (38-126); Anion Gap 11 mmol/L (4-12); Aspartate Amino Transferase 29 U/L (14-36); Bilirubin,Total 0.4 mg/dL (0.2-1.3); Blood Urea Nitrogen 11 mg/dL (7-17); Calcium 9.4 mg/dL (8.4-10.2); Carbon Dioxide 26 mmol/L (22-30); Chloride 100 mmol/L (98-107); Cholesterol 222 mg/dL (0-200); Estimated Glomerular Filt Rate 59; Glucose 89 mg/dL (65-110); HDL Direct 76 mg/dL; Potassium 4.2 mmol/L (3.4-5.0); Sodium 137 mmol/L (137-145); Total Protein 7.4 g/dL (6.3-8.2); Triglycerides 78 mg/dL (<150)
[2025-03-25 08:40] LABS: LDL Cholesterol Direct 91 mg/dL
[2025-03-25 10:39] LABS: Vitamin D 25 Hydroxy 32.1 ng/mL
[2025-03-25 12:35] LABS: Hemoglobin A1C. 5.5 % (<5.7)
== END 2025-03-25 06:42 | disposition home or self-care (01) ==
LOC: ANHLAB 06:43
PROVIDERS: PCP Nurse Practitioner; Visit Provider Nurse Practitioner
DX: Z00.00 Encounter for general adult medical examination without abnormal findings (principal)
CPT/HCPCS: 36415; 80053; 80061; 82306; 83036; 84443; 85025

== ENCOUNTER 2025-04-29 00:41 | Day surgery (SDC) | payer OTHER, SELFPAY ==
[2025-04-20 09:37] VITALS: BMI 24.5
--- NOTE | 2025-04-20 09:46 | PC.NURSE ---
Report to the Outpatient Waiting Room, entrance under the green pavilion located off [facility], at time _0600_ on date _04-29-25_. Planned Procedure Time: _0730_.? Time changes happen often and if your time is changed the preop area will call you the afternoon before. - You and your visitor will be asked to self-screen and do not enter if you have any COVID symptoms. Please call surgeon if you need to reschedule. - A mask is optional within the hospital at this time. Patients may have clear liquids (water, carbonated beverages, clear teas, apple juice) until 3 hours prior to surgery with a maximum of 20 ounces. - No food from midnight until time of surgery and no smoking, or chewing tobacco (or any form of nicotine). No chewing gum, candy or mints. - Infants may have breast milk until 4 hours before surgery, formula 6 hours prior to surgery. - Children will be allowed to drink immediately following surgery.? If applicable, please bring a bottle or sippy cup to assist with drinking. Juice, water, soda, and popsicles are readily available.? For infants on formula, please bring formula the day of surgery.? Pacifiers are allowed. Take only the following medications with a SIP of water on the morning of surgery: ___LEXAPRO, BUPROPRION, INHALER NEEDED___ DO NOT STOP ANY OF YOUR OTHER PRESCRIPTION MEDICATIONS PRIOR TO SURGERY EXCEPT THE FOLLOWING Hold all vitamins and supplements for 3 days per anesthesiologist. Medications to discontinue per physician N/A Date to take last dose____N/A___ Please no make-up, nail togolese, hairspray, perfume, deodorant, or body powder the day of surgery.? No jewelry (including any body piercings) or valuables the day of surgery, leave them at home.? Please take a shower or bath the night before, or the morning of, surgery with an antibacterial soap.? Wear comfortable, loose fitting clothing.? Children are encouraged to wear pajamas. - Jewelry must be removed prior to entering the operating room.? Rings and piercings that are not removed may be cut off. - The hospital will not accept responsibility for valuables.? - Please leave all valuables, including medications, at home the day of surgery. If you are going home after surgery, a licensed locomotive driver must drive you home.? - NO public transportation without another adult if you receive anesthesia. - We recommend that an adult stay with you for 24 hours following discharge. - We also recommend that you do not drive, make important decision, drink alcoholic beverages, or take any drugs that were not prescribed by your health care provider for at least 24 hours after your discharge time. For Pediatric surgeries, we recommend two adults accompany the child home. Follow any additional instructions given to you from your surgeon. Telephone instructions given to _PATIENT_and asked if any additional questions and then verbalized understanding. Patient advised to call surgeon office or pre surgery nurse liaison [phone] if any additional questions.
[2025-04-29] VITALS (8 sets, daily range): BP systolic 101–138; BP diastolic 63–93; PULSE 64–82; RESP 12–20; TEMP 36.6–36.7; O2SAT 95–100
--- OUTSIDE RECORDS SUMMARY | 2025-04-29 00:45 | XMS_ITS | Encounter Summary ---
Author Organization [facility] Address [address] [place] [address] Care Team Providers Care Patient Flow Coordinator Name Role Phone Unavailable Primary Care Provider Unavailabl e Encounter Details Date Type Department Care Team (Late st Contact Info) Description 08/13/1999 Outpatient [facility] Levar Calle MD [address] [place] [address] Social History Tobacco Use Types Packs/Day Years Used Date Smoking Tobacco: Never Assessed Comments Unknown Sex and Gender Information Value Date Recorded Sex Assigned at Not on file Legal Sex Female 3:16 AM CLIENT RETENTION SPECIALIST Gender Identity Not on file Sexual Orientation Not on file documented as of this encounter Plan of Treatment Not on file documented as of this encounter Visit Diagnoses Not on filedocumented in this encounter
--- OUTSIDE RECORDS SUMMARY | 2025-04-29 00:45 | XMS_ITS | Clinical Summary ---
Author Organization [facility] Address [address] [place] [address] Phone Care Team Providers Care Naphthalene Still Operator Name Role Phone Unavailable Primary Care Provider Unavailabl e Social History Tobacco Use Types Packs/Day Years Used Date Smoking Tobacco: Never Assessed Comments Unknown Sex and Gender Information Value Date Recorded Sex Assigned at Not on file Legal Sex Female 3:16 AM TREATING ENGINEER Gender Identity Not on file Sexual Orientation Not on file Plan of Treatment Health Maintenance Due Date Last Done Comments DTAP/TDAP/TD VACCINES (1 - Tdap) 1984 HEPATITIS B VACCINES (1 of 3 - 19+ 3-dose series) 04/30 HPV/Cotest (21-29) 1986 CERVICAL CANCER SCREENING 1995 HPV/Cotest (30-65) 1995 PAP SMEAR 1995 BREAST CANCER SCREENING 2005 COLORECTAL SCREENING 2010 Colorectal Cancer Screening 2010 FIT-DNA Q 3 years 2010 FIT/FOBT Q 1 year 2010 Flex Sig/CT Colonography Q 5 years 2010 ZOSTER VACCINE (1 of 2) 2015 INFLUENZA VACCINE (#1) 2025 Insurance RX [facility] [employer] Commercial RX W[employer]NER PLANS (INTERNAL) [facility]
--- OUTSIDE RECORDS SUMMARY | 2025-04-29 00:45 | XMS_ITS | Encounter Summary ---
Author Organization [facility] Address [address] [place] [address] Care Team Providers Care Care Services Manager Name Role Phone Unavailable Primary Care Provider Unavailabl e Encounter Details Date Type Department Care Team (Late st Contact Info) Description 04/13/1999 Outpatient [facility] Jesus Lin MD [address] [place] [address] Allergic rhinitis due to pollen (Primary Dx) Social History Tobacco Use Types Packs/Day Years Used Date Smoking Tobacco: Never Assessed Comments Unknown Sex and Gender Information Value Date Recorded Sex Assigned at Not on file Legal Sex Female 3:16 AM WIRELINE FIELD OPERATOR Gender Identity Not on file Sexual Orientation Not on file documented as of this encounter Plan of Treatment Not on file documented as of this encounter Visit Diagnoses Diagnosis Allergic rhinitis due to pollen- Primary documented in this encounter
--- OUTSIDE RECORDS SUMMARY | 2025-04-29 00:45 | XMS_ITS | Encounter Summary ---
Author Organization [facility] Address [address] [place] [address] Care Team Providers Care Farmhand Name Role Phone Unavailable Primary Care Provider Unavailabl e Encounter Details Date Type Department Care Team (Late st Contact Info) Description 08/31/1998 Outpatient [facility] Jesus Lin MD [address] [place] [address] Unspecified sinusitis (chronic) (Primary Dx) Social History Tobacco Use Types Packs/Day Years Used Date Smoking Tobacco: Never Assessed Comments Unknown Sex and Gender Information Value Date Recorded Sex Assigned at Not on file Legal Sex Female 3:16 AM SINGLE END SEWER Gender Identity Not on file Sexual Orientation Not on file documented as of this encounter Plan of Treatment Not on file documented as of this encounter Visit Diagnoses Diagnosis Unspecified sinusitis (chronic)- Primary documented in this encounter
--- OUTSIDE RECORDS SUMMARY | 2025-04-29 00:45 | XMS_ITS | Continuity of Care Document ---
Author Organization [facility] Address [address] [place] [address] Phone Care Team Providers Care Aeronautical Engineer Name Role Phone Hallie Haynes Unavailable Unavailable Procedures Procedure Date Special Reports Or Forms Advance Directives Directive Yes / No Effective Date File Name No Information Encounters Encounter Description Practice Location Reason(s) For Visit Diagnoses Date Provider Providers Copied on Encounter [facility], [address], [place], [place], [id number], [place] tel:[phone] [facility] No Information [address]. [address] [facility] , [address], [place], [address], [place]. tel:[phone] Family History Family Member Type Diagnosis Age At Onset No Information Payers Payer name Insurance type Covered constitution party ID Authoriza tion(s) No Information Social [...]
--- OUTSIDE RECORDS SUMMARY | 2025-04-29 00:45 | XMS_ITS | Clinical Summary ---
Author Organization [facility] Address [address], [address] [address] Phone Care Team Providers Care Nurses Supervisor Name Role Phone Unavailable Primary Care Provider [...] Cervical Cancer Screening (CCS) 1995 HPV/Cotest 1995 Cologuard 2010 Colonoscopy 2010 Colorectal Cancer Screening 2010 Immunochemical Fecal Occult Blood 2010 Pneumococcal Immunization (5 0+ years) (1 of 1 - PCV) 2015 Zoster Immunization (1 of 2) 2015 SARS-COV-2 Immunization ( - season) 2024 Influenza Immunization (#1) 2025 Respiratory Syncytial Virus (RSV) Immunization (Adult) (1 - 1-dose 75+ series) 2040 Human Papillomavirus (HPV) Immunization Aged Out No longer eligible b ased on patient's age to complete this topic Meningococcal Immunization (ACWY) Aged Out No longer eligible based on patient's age to complete this topic Rotavirus Immunization Aged Out No lo nger eligible based on patient's age to complete this topic Insurance MEDICAID [facility]
--- OUTSIDE RECORDS SUMMARY | 2025-04-29 00:45 | XMS_ITS | Encounter Summary ---
Author Organization [facility] Address [address] [place] [address] Care Team Providers Care Staff Development Educator Name Role Phone Unavailable Primary Care Provider Unavailabl e Encounter Details Date Type Department Care Team (Late st Contact Info) Description 12/10/1999 Outpatient [facility] Levar Calle MD [address] [place] [address] Social History Tobacco Use Types Packs/Day Years Used Date Smoking Tobacco: Never Assessed Comments Unknown Sex and Gender Information Value Date Recorded Sex Assigned at Not on file Legal Sex Female 3:16 AM GOLF RANGE ATTENDANT Gender Identity Not on file Sexual Orientation Not on file documented as of this encounter Plan of Treatment Not on file documented as of this encounter Visit Diagnoses Not on filedocumented in this encounter
--- OUTSIDE RECORDS SUMMARY | 2025-04-29 00:45 | XMS_ITS | Clinical Summary ---
Author Organization [facility] [employer] Address [address] [place] [address] Care Team Providers Care Newsroom Intern Name Role Phone Ron Awad MD Primary Care Provider [phone] [facility],non-owned Affiliates and Associated Physician Practices is amultiple site organization consisting of ambulatory clinics and hospital sitesin [place], [place], [place] and [place]. This disclosure is being madepursuant to the Care Everywhere program and may not contain all information available regarding this patient. Last updated 18.[facility] [employer] Allergies Active Allergy Reactions Criticality Noted Date Comments Paroxetine Other 04/10/2022 Fatigue Sulfa Drugs Rash Low 05/29/2016 Blister's around the mount Medications * Be aware that medications may not be up to date on this document. Alwaysverify current medications with the patient. Cetirizine HCl (ZYRTEC ALLERGY PO) Take 10 mg by mouth once daily Active fluticasone propionate (FLONASE) 50 MCG/ACT nasal sprayIndications :Acute pansinusitis, recurrence not specified [place] 1 [place] into each nostril 2 times daily 1 Bottle 1 7 Active escitalopram (LEXAPRO) 20 MG tablet Take 1 (one) tablet by mouth once daily Active vitamin D, ergocalciferol, (DRISDOL) 1.25 MG (56873 UT) capsule TAKE 1 CAPSULE EVERY WEEK BY ORAL ROUTE. 2 Active buPROPion XL 24hr (Wellbutrin-XL) 150 MG tablet Take 1 (one) tablet by mouth once daily 2 Active ketoconazole (Nizoral) 2 % cream APPLY TO THE AFFECTED AREA(S) TOENAILS BY TOPICAL ROUTE ONCE DAILY 2 Active omeprazole (PriLOSEC) 20 MG capsule TAKE 1 CAPSULE BY MOUTH TWICE A DAY 2 Active doxycycline monohydrate 100 MG tablet 100 MG ORALLY TWICE A DAY 3 Active methylPREDNISolo ne (Medrol Dosepak) 4 MG tablet TAKE 6 TABLETS ON DAY 1 DIRECTED ON PACKAGE AND DECREASE BY 1 TAB EACH DAY FOR A TOTAL OF 6 DAYS 3 Active Active Problems Problem Noted Date Diagnosed Date Nasal septal deviation 04/10/2022 Nasal valve collapse 04/10/2022 Hypertrophy of both inferior nasal turbinates Essential (primary) hypertension 07/09/2012 Immunizations Immunization Administration Dates Next Due INFLUENZA VACCINE, HIGH-DOSE [...] pur e alcohol) occassional wine on holidays Comments No Sex and Gender Information Value Date Recorded Sex Assigned at Not on file Legal Sex Female 12:21 PM CDT Gender Identity Not on file [...] A M CDT Height 167.6 cm (5' 6) 07/19/2022 8:53 AM CDT Body Mass Index [...] SCREENING 1965 LIPID TESTING 1965 MAMMOGRAM 1965 HIV SCREENING 1980 HEPATITIS C SCREENING 05/14/1983 DTAP/TDAP/TD VACCINES (1 - Tdap) 1984 HEPATITIS B VACCINE (1 of 3 - 19+ 3-dose series) 1984 PAP SMEAR 1986 PNEUMOCOCCAL VACCINE 50+ (1 of 1 - PCV) 2015 ZOSTER VACCINE (1 of 2) 2015 COVID-19 VACCINE (1 - 2023-2 5 season) 2024 DEPRESSION SCREENING 09/29/2024 INFLUENZA VACCINE (#1) 2025 0, 09/29/2014 HIB VACCINE Aged Out No longer eligi [...] patient's age to complete this topic [place] [address] [place] [address] [place] [address] Care Teams Newsroom Intern Relationship Specialty Start Date End Date Ron Awad MD [address] [place] [address] PCP - General 07/22/22
--- NOTE | 2025-04-29 06:10 | ECG_ITS ---
Test Date: 2025-04-29 06:48:47 Measurements Intervals [place] Rate: 66 P: 52 WV: 157 QRS: 44 QRSD: 92 T: 30 QT: 390 QTc: 410 Interpretive Statements SINUS RHYTHM POSSIBLE LEFT ATRIAL ENLARGEMENT BASELINE ARTIFACT- II, III, AVR, AVL, AVF BORDERLINE ECG No previous ECG available for comparison Electronically Signed On 04-29-2025 07:14:53 CDT by Thomas Sultana D.O.
[2025-04-29] MEDS: LACTATED RINGERS 1,000 ML 30 ML IV CONT (06:30)
[2025-04-29] MEDS: ACETAMINOPHEN 500 MG TABLET 1000 MG PO (06:33)
[2025-04-29] MEDS: CELECOXIB 200 MG CAPSULE PO (06:34)
--- NOTE | 2025-04-29 07:25 | WPDANESEPPF ---
Anes - Initial Pre Proc Eval Procedure: Operation Date: 04/29/25 07:30 Proposed Procedures p Left Knee Arthroscopy, Proceed As Indicated - Celestine Gan MD Date/Time: 04/29/25 07:25 Surgeon: Celestine Gan MD Pre Op Diagnosis: left knee medial meniscal tear Patient Data Age: 59 Gender: F Height: 1.68 m Weight: 69 kg Allergies Allergy/AdvReac Type Severity Reaction Status Date / Time Sulfa (Sulfonamide Allergy Severe Hives, Verified 04/20/25 09:34 Antibiotics) blisters mouth scalded Home Medications ?Medication ?Instructions ?Recorded ?Confirmed ?Type escitalopram oxalate 20 mg tablet 20 mg PO DAILY 01/10/21 04/29/25 History fluticasone propionate 50 See Rx Instructions .Route 09/04/22 04/29/25 Rx mcg/actuation nasal .COMPLEX #48 mL spray,suspension inhalational spacing device #1 ea 10/14/24 04/18/25 Rx (Aerochamber MV spacer) albuterol sulfate 90 mcg/actuation See Rx Instructions .Route 02/15/25 04/29/25 Rx aerosol inhaler .COMPLEX #8.5 ea lisinopril 20 mg tablet See Rx Instructions .Route 03/07/25 04/29/25 Rx .COMPLEX #90 tabs omeprazole 40 mg capsule,delayed See Rx Instructions .Route 04/06/25 04/29/25 Rx release .COMPLEX #30 caps bupropion HCl 150 mg 24 hr tablet, 150 mg PO DAILY 04/20/25 04/29/25 History extended release chlorhexidine gluconate 4 % 1 applic topical ONCE #237 mL 04/22/25 04/29/25 Rx topical liquid (Hibiclens) Patient hx anesthesia problems: none Family hx anesthesia problems: none Results Review: All pre-operative results and documents have been reviewed as part of the pre-operative evaluation. [facility] Past Medical History Medical History BMI 24.0-24.9, adult BMI 25.0-25.9,adult Essential hypertension Left knee pain Left knee DJD Osteoarthritis of carpometacarpal (CMC) joint of left thumb Medial meniscus tear Closed fracture of nasal bone Right knee pain Colon cancer screening Dysphagia GERD (gastroesophageal reflux disease) Anxiety History of blood pressure problems Surgical History Surgical History History of sinus surgery 2020 Family History Family History Mother Heart disease Hypertension High cholesterol Father Hypertension High cholesterol Carcinoma of colon Malignant neoplasm of prostate Sibling No problems noted. Social History Social History Smoking status: Never smoker Second hand tobacco smoke exposure: No Substance use: never Substance use type: does not use Do You Feel Safe in your Home?: Yes Lack of Transportation: No Lack of Food: Never True Current Housing: I Have Housing Concerned About Future Housing: Decline to Answer Difficulty Paying Gas/Electric Bills: Decline to Answer Difficulty Paying for Meds: Decline to Answer Currently Unemployed: Decline to Answer Education: Master's Degree or Higher Difficulty w/ Childcare or Family Care: No Living arrangements: alone Occupation/Education: occupation 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 Informed Consent: The patient's anesthetic plan and its attendant risks and benefits were discussed with the patient/family/POA. Questions were solicited and answers provided to the satisfaction of the patient/family/POA.
--- NOTE | 2025-04-29 07:27 | WPDHPUPDATE1 ---
History and Physical Update Update Date/Time: 04/29/25 07:27 History and Physical has been reviewed, including an updated exam of the patient. There are NO changes in the patient's condition. Risks, benefits, and alternatives have been discussed and questions answered. Patient agrees to proceed with procedure.
[2025-04-29] MEDS: ceFAZolin 2 GM in SODIUM CHLORIDE 0.9% IV 50 ML 100 ML IVPB (07:30)
[2025-04-29] MEDS: BUPIVACAINE/EPINEPHRINE 0.5% 50 ML VIAL 30 ML INFILTRATE (07:56)
--- NOTE | 2025-04-29 08:40 | W.PM.PROC2 ---
Procedure Note - Detailed Date of Procedure 04/29/25 Pre-op Diagnosis left knee medial meniscal tear Post-op Diagnosis Same Procedure Performed LEFT KNEE SCOPE Surgeon Celestine Gan MD Anesthesia General Description of Procedure PATIENT WAS TAKEN TO THE OR. LEFT LEG WAS PREPPED AND DRAPED STERILE. TROCARS WERE PLACED IN THE USUAL FASHION. CAMERA WAS INTRODUCED. THERE WAS CHONDROMALACIA TO THE PATELLA FEMORAL JOINT. THERE WAS A LOT OF SYNOVITIS IN ALL COMPARTMENTS. THE MEDIAL COMPARTMENT SHOWED CHONDROMALACIA TO THE MEDIAL FEMORAL CONDYLE. A SHAVER WAS USED TO PREFORM A CHONDROPLASTY. THERE WAS A COMPLEX MEDIAL MENISCUS TEAR. THE TEAR WAS RESECTED WITH A BITER AND A SHAVER DOWN TO A SMOOTH BASE. THE ACL WAS INTACT. THE LATERAL MENISCUS WAS NOT TORN. THE LAT COMPARTMENT HAD MINIMAL CHONDROMALACIA. CHONDROPLASTY WAS PREFORMED. A SYNOVECTOMY WAS PREFORMED WELL. THE PATELLO FEMORAL JOINT UNDERWENT CHONDROPLASTY. THERE WAS GRADE 2 CHONDROMALACIA IN PART OF THE TROCHLEA AND PART OF THE PATELLA. SYNOVECTOMY WAS PREFORMED IN THE SUPERIOR MEDIAL COMPARTMENT. THE WOUNDS WERE APPROXIMATED WITH 4.0 NYLON. STERILE DRESSING WAS APPLIED. PATIENT WAS EXTUBATED. Estimated Blood Loss 5 Complications No immediate complications Condition Stable Disposition PACU
[2025-04-29] MEDS: oxyCODONE HCL (*CRX) 5 MG TAB IR PO (10:08)
== END 2025-04-29 10:42 | disposition home or self-care (01) ==
PROVIDERS: PCP Nurse Practitioner; Visit Provider Orthopaedic Surgery
PROC: (CPT 29870; principal; 2025-04-29 07:30)
DX: M23.232 Derangement of other medial meniscus due to old tear or injury, left knee (principal); M65.862 Other synovitis and tenosynovitis, left lower leg; M94.262 Chondromalacia, left knee
CPT/HCPCS: 29881; 29876; 93005; J0690; A9270; J1100; J2003; J2250; J2405; J2704; J3010; J7120

== ENCOUNTER 2025-05-21 08:08 | Emergency (ER) | payer OTHER, SELFPAY ==
[2025-05-21 08:23] VITALS: BP 138/75; PULSE 78; RESP 20; TEMP 36.8; O2SAT 100
--- NOTE | 2025-05-21 08:37 | ED.URI ---
HPI - URI/Sore Throat General Chief Complaint: Upper Respiratory Infection Stated Complaint: sore throat/sinus congestion Time Seen by Provider: 05/21/25 08:28 Source: patient and RN notes reviewed Mode of arrival: ambulatory Limitations: no limitations History of Present Illness HPI Narrative: Patient presents today with a 4 to five-day history of cough, nasal congestion, sore throat, chest tightness, with a fever with a T-max of 101 x2 days. Denies shortness of breath. She has been taking Zyrtec, Tylenol, and Mucinex with some mild relief. She also has an albuterol inhaler left over from previous illness that she has been using as well. Related Data Home Medications ?Medication ?Instructions ?Recorded ?Confirmed ?Last Taken ?Type escitalopram oxalate 20 mg tablet 20 mg PO DAILY 01/10/21 05/12/25 04/29/25 05:00 History bupropion HCl 150 mg 24 hr tablet, 150 mg PO DAILY 04/20/25 05/12/25 04/29/25 05:00 History extended release Allergies Allergy/AdvReac Type Severity Reaction Status Date / Time Sulfa (Sulfonamide Allergy Severe Hives, Verified 05/21/25 08:28 Antibiotics) blisters mouth scalded PMFSH Past Medical History Medical History BMI 24.0-24.9, adult BMI 25.0-25.9,adult Essential hypertension Left knee pain Left knee DJD Osteoarthritis of carpometacarpal (CMC) joint of left thumb Medial meniscus tear Closed fracture of nasal bone Right knee pain Colon cancer screening Dysphagia GERD (gastroesophageal reflux disease) Anxiety History of blood pressure problems Surgical History Surgical History History of sinus surgery 2020 Family History Family History Mother Heart disease Hypertension High cholesterol Father Hypertension High cholesterol Carcinoma of colon Malignant neoplasm of prostate Sibling No problems noted. Social History Social History Smoking status: Never smoker Second hand tobacco smoke exposure: No Substance use: never Substance use type: does not use Do You Feel Safe in your Home?: Yes Lack of Transportation: No Lack of Food: Never True Current Housing: I Have Housing Concerned About Future Housing: Decline to Answer Difficulty Paying Gas/Electric Bills: Decline to Answer Difficulty Paying for Meds: Decline to Answer Currently Unemployed: Decline to Answer Education: Master's Degree or Higher Difficulty w/ Childcare or Family Care: No Living arrangements: alone Occupation/Education: occupation 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 Please see nursing chart for further information. There is no relevant family history pertinent to the presenting complaint Exam Narrative: GENERAL: Mildly ill-appearing, well-nourished, and in no acute distress. HEAD: Normocephalic, atraumatic. EYES: EOMI. No redness or drainage. Conjunctivae normal. ENT: Mucous membranes pink and moist. Nares congested with rhinorrhea. TMs normal bilaterally. Throat very mildly erythematous without edema or exudate. Uvula midline. NECK: Normal AROM. Supple. No lymphadenopathy. CHEST: No respiratory distress. Clear to auscultation. HEART: Regular rate and rhythm. No murmur appreciated. EXTREMITIES: Normal range of motion. No edema. SKIN: Warm, dry, no rash. Capillary refill normal. Normal skin turgor. NEURO: No focal deficits. Alert and oriented x3. Gait steady. PSYCH: Normal affect. No signs of depression or anxiety. Course Course Level of Care: Express Care Visit Vital Signs Vital signs: Vital Signs Temperature 98.3 F 05/21/25 08:23 Pulse Rate 78 05/21/25 08:23 Respiratory Rate 20 05/21/25 08:23 Blood Pressure 138/75 05/21/25 08:23 Pulse Oximetry 100 05/21/25 08:23 Oxygen Delivery Room Air 05/21/25 08:23 Temperature 98.3 F 05/21/25 08:23 Pulse Rate 78 05/21/25 08:23 Respiratory Rate 20 05/21/25 08:23 Blood Pressure 138/75 05/21/25 08:23 Pulse Oximetry 100 05/21/25 08:23 Oxygen Delivery Room Air 05/21/25 08:23 Reviewed MDM - URI/Sore Throat MDM Narrative Medical decision making narrative: 60-year-old female patient presents with a 4 to five-day history of upper respiratory symptoms and cough with a 2 day history of fever. Upon exam, patient has nasal congestion and very mild erythematous pharynx without edema or exudate. OTC medication provided some mild relief. Rapid strep negative. COVID negative. Symptoms likely viral in etiology. Discussed [id number] medication use and duration of illness. No prescription medications indicated at this time. Anticipatory guidance given. Differential Diagnosis Differential diagnosis: Likely upper respiratory infection, sinusitis, viral infection, bronchitis, pharyngitis and other (Strep throat, COVID, pneumonia) Lab Data Attestation: I reviewed the patient's lab results. Labs: Lab Results 05/21/25 Range/Units 08:35 POC SARS CoV-2 Ag Negative (Negative) POC Grp A Strep Screen Negative (Negative) Critical Care Time Critical Care Time Critical Care Time: No Discharge Plan Discharge Clinical Impression: Upper respiratory infection Qualifiers: URI type: unspecified URI Qualified Code(s): J06.9 - Acute upper respiratory infection, unspecified Patient Disposition: Home Condition: Stable Instructions: Upper Respiratory Infection (DC) Additional Instructions: Your rapid strep and COVID tests are negative today. Your Symptoms are likely due to a viral illness, which is not treated with antibiotics. Virus symptoms can last for up to 7-10days. Take Tylenol or ibuprofen for pain or fever, if able. Rest and stay hydrated. Follow up with your PCP in 5 days if symptoms are not improving. Go to the ER immediately if you develop shortness of breath, difficulty swallowing, or any other concerning symptoms. Your blood pressure was elevated above 120/80 today at Urgent Care. This puts you above the threshold for follow up. Please schedule a followup visit with your personal physician as soon as possible, for further evaluation and treatment. Even blood pressure exceeding 120/80 may indicate pre-hypertension. Patient Language: Korean Prescriptions: No Action (DME) Aerochamber MV Spacer See Rx Instructions .Route Qty: 1 0RF Rx Instructions: As directed escitalopram oxalate 20 mg Tablet 20 mg PO DAILY bupropion HCl 150 mg tablet extended release 24 hr 150 mg PO DAILY fluticasone propionate 50 mcg/actuation spray,suspension See Rx Instructions .ROUTE .COMPLEX Qty: 48 12RF Dose Instruction: PLACE 1 TO 2 SPRAYS INTO EACH NOSTRIL TWICE DAILY Rx Instructions: PLACE 1 TO 2 SPRAYS INTO EACH NOSTRIL TWICE DAILY albuterol sulfate 90 mcg/actuation HFA aerosol inhaler See Rx Instructions .ROUTE .COMPLEX Qty: 8.5 3RF Dose Instruction: INHALE 2 PUFFS BY MOUTH 4 TIMES A DAY NEEDED FOR SHORTNESS OF BREATH OR FOR WHEEZE Rx Instructions: INHALE 2 PUFFS BY MOUTH 4 TIMES A DAY NEEDED FOR SHORTNESS OF BREATH OR FOR WHEEZE lisinopril 20 mg tablet See Rx Instructions .ROUTE .COMPLEX Qty: 90 1RF Dose Instruction: TAKE 1 TABLET BY MOUTH EVERY DAY Rx Instructions: TAKE 1 TABLET BY MOUTH EVERY DAY omeprazole 40 mg capsule,delayed release(DR/EC) See Rx Instructions .ROUTE .COMPLEX Qty: 30 3RF Dose Instruction: TAKE 1 CAPSULE BY MOUTH EVERY DAY Rx Instructions: TAKE 1 CAPSULE BY MOUTH EVERY DAY Follow-up/Referrals: Clint Sánchez APRN [Primary Care Provider, Internal Medicine] Time of Disposition: 08:57
[2025-05-21 08:57] LABS: EDCOVIDSCREEN Negative (Negative); EDSTREPNEGPOS1 Negative (Negative)
== END 2025-05-21 09:03 | disposition home or self-care (01) ==
PROVIDERS: Emergency Provider Nurse Practitioner; PCP Nurse Practitioner
DX: J06.9 Acute upper respiratory infection, unspecified (principal); Z20.822 Contact with and (suspected) exposure to COVID-19; I10 Essential (primary) hypertension; K21.9 Gastro-esophageal reflux disease without esophagitis; F41.9 Anxiety disorder, unspecified; M17.12 Unilateral primary osteoarthritis, left knee; M18.12 Unilateral primary osteoarthritis of first carpometacarpal joint, left hand
CPT/HCPCS: 87426; 87880; 99213; G0463

== ENCOUNTER 2025-05-27 08:02 | Emergency (ER) | payer OTHER, SELFPAY ==
--- NOTE | 2025-05-27 08:13 | ED.URI ---
HPI - URI/Sore Throat General Chief Complaint: Upper Respiratory Infection Stated Complaint: SINUS CONGESTION/PAIN/FEVER Time Seen by Provider: 05/27/25 08:13 Source: patient Mode of arrival: ambulatory Limitations: no limitations History of Present Illness HPI Narrative: 60-year-old female presents with complaint of purulent nasal drainage, runny nose, sneezing, sinus pressure for 2 weeks. Taking Mucinex and Zyrtec. Afebrile. All systems reviewed and negative except as noted above. Related Data Home Medications ?Medication ?Instructions ?Recorded ?Confirmed ?Last Taken ?Type escitalopram oxalate 20 mg tablet 20 mg PO DAILY 01/10/21 05/12/25 04/29/25 05:00 History bupropion HCl 150 mg 24 hr tablet, 150 mg PO DAILY 04/20/25 05/12/25 04/29/25 05:00 History extended release ergocalciferol (vitamin D2) 1,250 05/27/25 Unknown History mcg (50,000 unit) capsule Allergies Allergy/AdvReac Type Severity Reaction Status Date / Time Sulfa (Sulfonamide Allergy Severe Hives, Verified 05/27/25 08:18 Antibiotics) blisters mouth scalded PMFSH Past Medical History Medical History BMI 24.0-24.9, adult BMI 25.0-25.9,adult Essential hypertension Left knee pain Left knee DJD Osteoarthritis of carpometacarpal (CMC) joint of left thumb Medial meniscus tear Closed fracture of nasal bone Right knee pain Colon cancer screening Dysphagia GERD (gastroesophageal reflux disease) Anxiety History of blood pressure problems Surgical History Surgical History History of sinus surgery 2020 Family History Family History Mother Heart disease Hypertension High cholesterol Father Hypertension High cholesterol Carcinoma of colon Malignant neoplasm of prostate Sibling No problems noted. Social History Social History Smoking status: Never smoker Second hand tobacco smoke exposure: No Substance use: never Substance use type: does not use Do You Feel Safe in your Home?: Yes Lack of Transportation: No Lack of Food: Never True Current Housing: I Have Housing Concerned About Future Housing: Decline to Answer Difficulty Paying Gas/Electric Bills: Decline to Answer Difficulty Paying for Meds: Decline to Answer Currently Unemployed: Decline to Answer Education: Master's Degree or Higher Difficulty w/ Childcare or Family Care: No Living arrangements: alone Occupation/Education: occupation 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 There is no relevant family history pertinent to the presenting complaint. Exam Narrative: GENERAL: This is a well-nourished, well-developed patient, in no apparent distress. HEAD: normocephalic, atraumatic. EYES: PERRL. Sclera clear/white. Vision is grossly intact. EARS: External ears normal, auditory canals clear and without drainage, TMs normal without perforation. Hearing grossly intact. NOSE: External nose normal with purulent nasal drainage, erythema and swelling to bilateral nares. Maxillary sinus tenderness on palpation. THROAT: Mucous membranes moist, erythema postnasal drainage. No swelling or exudates. NECK: Neck supple, non-tender without lymphadenopathy, masses or thyromegaly. CARDIOVASCULAR: Regular rate and rhythm without murmurs, gallops, or rubs. RESPIRATORY: Clear to auscultation. Breath sounds equal bilaterally. No wheezes, rales, or rhonchi. SKIN: warm, Dry, intact with no suspicious lesions or rash, good texture and turgor. NEURO: awake, alert, and oriented to person, place and time. There were no obvious focal neurologic abnormalities. EXTREMITIES: No joint tenderness, effusion, or edema noted. Course Course Level of Care: Express Care Visit Vital Signs Vital signs: Reviewed MDM - URI/Sore Throat MDM Narrative Medical decision making narrative: Will treat for bacterial sinusitis due to duration of symptoms and exam findings. Patient agrees with plan of care. Differential Diagnosis Differential diagnosis: Likely upper respiratory infection, sinusitis, viral infection and pharyngitis Discharge Plan Discharge Clinical Impression: Acute bacterial sinusitis Patient Disposition: Home Condition: Stable Instructions: Antibiotic Form, Sinusitis (ED) Additional Instructions: Take medications as prescribed. Continue taking Zyrtec daily. Drink at least 64 oz water a day. See your doctor if not improving. Patient Language: Sudanese Prescriptions: New fluticasone propionate [Flonase Allergy Relief] 50 mcg/actuation spray,suspension 1 spray intranasal BID Qty: 16 0RF Rx Instructions: administer into each nostril amoxicillin-pot clavulanate 875-125 mg tablet 1 tablet PO Q12H 7 Days Qty: 14 0RF No Action ergocalciferol (vitamin D2) 1,250 mcg (50,000 unit) capsule (DME) Aerochamber MV Spacer See Rx Instructions .Route Qty: 1 0RF Rx Instructions: As directed escitalopram oxalate 20 mg Tablet 20 mg PO DAILY bupropion HCl 150 mg tablet extended release 24 hr 150 mg PO DAILY fluticasone propionate 50 mcg/actuation spray,suspension See Rx Instructions .ROUTE .COMPLEX Qty: 48 12RF Dose Instruction: PLACE 1 TO 2 SPRAYS INTO EACH NOSTRIL TWICE DAILY Rx Instructions: PLACE 1 TO 2 SPRAYS INTO EACH NOSTRIL TWICE DAILY albuterol sulfate 90 mcg/actuation HFA aerosol inhaler See Rx Instructions .ROUTE .COMPLEX Qty: 8.5 3RF Dose Instruction: INHALE 2 PUFFS BY MOUTH 4 TIMES A DAY NEEDED FOR SHORTNESS OF BREATH OR FOR WHEEZE Rx Instructions: INHALE 2 PUFFS BY MOUTH 4 TIMES A DAY NEEDED FOR SHORTNESS OF BREATH OR FOR WHEEZE lisinopril 20 mg tablet See Rx Instructions .ROUTE .COMPLEX Qty: 90 1RF Dose Instruction: TAKE 1 TABLET BY MOUTH EVERY DAY Rx Instructions: TAKE 1 TABLET BY MOUTH EVERY DAY omeprazole 40 mg capsule,delayed release(DR/EC) See Rx Instructions .ROUTE .COMPLEX Qty: 30 3RF Dose Instruction: TAKE 1 CAPSULE BY MOUTH EVERY DAY Rx Instructions: TAKE 1 CAPSULE BY MOUTH EVERY DAY Follow-up/Referrals: Clint Sánchez APRN [Primary Care Provider, Internal Medicine] Time of Disposition: 08:20
[2025-05-27 08:14] VITALS: BP 144/89; PULSE 87; RESP 19; TEMP 36.6; O2SAT 100
== END 2025-05-27 08:22 | disposition home or self-care (01) ==
PROVIDERS: Emergency Provider Nurse Practitioner Family; PCP Nurse Practitioner
DX: J01.90 Acute sinusitis, unspecified (principal); B96.89 Other specified bacterial agents as the cause of diseases classified elsewhere; I10 Essential (primary) hypertension
CPT/HCPCS: 99213; G0463

== ENCOUNTER 2025-07-31 08:14 | Emergency (ER) | payer OTHER, SELFPAY ==
--- NOTE | 2025-07-31 08:18 | ED_ITS ---
HPI - Female Genitourinary General Chief complaint: Urogenital-Female Stated complaint: BURNING URINATION Time Seen by Provider: 07/31/25 08:30 Source: patient Mode of arrival: ambulatory Limitations: no limitations History of Present Illness HPI Narrative: [place] is a 60-year-old female patient presenting to the clinic today with complaints possible UTI. She reports she has had urinary symptoms for 1.5 weeks. Is complaining of burning with urination, urgency with low urine output, and suprapubic pain. No known fevers or chills. Denies any nausea vomiting. Does have some low back pain. Has been taking cranberry pills and has tried azo. Rates discomfort 04/07. Related Data Home Medications ?Medication ?Instructions ?Recorded ?Confirmed ?Last Taken ?Type escitalopram oxalate 20 mg tablet 20 mg PO DAILY 01/1007/31/25 04/29/25 05:00 History bupropion HCl 150 mg 24 hr tablet, 150 mg PO DAILY 07/31/25 04/29/25 05:00 History extended release ergocalciferol (vitamin D2) 1,250 05/27/25 Unknown H istory mcg (50,000 unit) capsule Allergies Allergy/AdvReac Type Severity Reaction Status Date / Time Sulfa (Sulfonamide Allergy Severe Hives, Verified 07/31/25 08:33 Antibiotics) blisters mouth scalded Review of Systems Review of Systems: Pertinent positives per HPI. Patient denies any fever, chills, rash, headache, visual changes, dizziness, cough, runny nose, sore throat, shortness of breath, chest pain, palpitations, nausea, vomiting, diarrhea, constipation. [facility] Past Medical History Medical History BMI 24.0-24.9, adult BMI 25.0-25.9,adult Essential hypertension Left knee pain Left knee DJD Osteoarthritis of carpometacarpal (CMC) joint of left thumb Medial meniscus tear Closed fracture of nasal bone Right knee pain Colon cancer screening Dysphagia GERD (gastroesophageal reflux disease) Anxiety History of blood pressure problems Surgical History Surgical History History of sinus surgery 2020 Family History Family History Mother Heart disease Hypertension High cholesterol Father Hypertension High cholesterol Carcinoma of colon Malignant neoplasm of prostate Sibling No problems noted. Social History Social History Smoking status: Never smoker Second hand tobacco smoke exposure: No Substance use: never Substance use type: does not use Do You Feel Safe in your Home?: Yes Lack of Transportation: No Lack of Food: Never True Current Housing: I Have Housing Concerned About Future Housing: Decline to Answer Difficulty Paying Gas/Electric Bills: Decline to Answer Difficulty Paying for Meds: Decline to Answer Currently Unemployed: Decline to Answer Education: Master's Degree or Higher Difficulty w/ Childcare or Family Care: No Living arrangements: alone Occupation/Education: occupation 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 There is no relevant family history pert inent to the patient complaint. Exam Narrative: General: Well-developed, well nourished, in no apparent distress. Head: Normocephalic, atraumatic. Cardio: Regular rate and rhythm, s1 and s2 normal, no murmur appreciated. Resp: Clear to auscultation bilaterally, no rhonchi, rales, wheezing or rubs. Abdomen: Soft, pliable, bowel sounds present in all quadrants, suprapubic tender to palpation, no organomegly, bilateral CVAT tenderness. Course Course Emergency Course: Portions of this record may have been created with voice recognition software. Level of Care: Express Care Visit Vital Signs Vital signs: Vital Signs Temperature 36.9 C 07/31/25 08:25 Pulse Rate 81 07/31/25 08:25 Respiratory Rate 16 07/31/25 08:25 Blood Pressure 126/31 L 07/31/25 08:25 Pulse Oximetry 100 07/31/25 08:25 Temperature 36.9 C 07/31/25 08:25 Pulse Rate 81 07/31/25 08:25 Respiratory Rate 16 07/31/25 08:25 Blood Pressure 126/31 L 07/31/25 08:25 Pulse Oximetry 100 07/31/25 08:25 Vital signs reviewed MDM - Female Genitourinary MDM Narrative Medical decision making narrative: At the time of visit patient is resting comfortably on the exam table. Patient appears to be nontoxic. complaints possible UTI. She reports she has had urinary symptoms for 1.5 weeks. Is complaining of burning with urination, urg ency with low urine output, and suprapubic pain. No known fevers or chills. Denies any nausea vomiting. Does have some low back pain. Has been taking cranberry pills and has tried azo. On exam patient has tenderness to palpation over the suprapubic area and bilateral CVAT tenderness. Abdomen is soft, pliable, nondistended, bowel sounds present all 4 quadrants, no organomegaly. Urine dip was ordered. Labs: Urine dip positive for leukocytes, blood, nitrates, and protein. We will send urine for culture Plan: I suspect patient has UTI-possibly early pyelonephritis. Prescription for cephalexin was sent to the pharmacy as patient has allergies to Bactrim. Supportive measures were discussed with the patient and they voiced understanding discharge instructions and agrees to treatment plan. Return precautions reviewed Differential Diagnosis Differential diagnosis: Likely urinary tract infection, cystitis and other (Py elonephritis) Lab Data Labs: Lab Results 07/31/25 Range/Units 08:31 POC Urine Color Yellow POC Urine Clarity Cloudy POC Urine pH 6.0 POC Ur Specif [place] 1.010 POC Urine Protein 1+ (Negative) POC Ur Glucose (UA) Negative (Negative) POC Urine Ketones Negative (Negative) POC Urine Blood 3+ (Negative) POC Urine Nitrite Positive (Negative) POC Urine Bilirubin Negative (Negative) POC Urine Urobilinogen 0.2 POC U Leukocyte Esteras 3+ (Negative) Discharge Plan Discharge Clinical Impression: UTI (urinary tract infection) Qualifiers: Urinary tract infection type: acute cystitis Hematuria presence: with hematuria Qualified Code(s): N30.01 - Acute cystitis with hematuria Patient Disposition: Home Condition: Stable Instructions: Antibiotic Form, Urinary Tract Infection in Women (ED) Additional Instructions: Increase fluids and stay well hydrated Wipe front to back. May use wet wipes. Avoid tub baths If sexually active- pee before and after intercourse. Wear cotton panties Avoid tight clothing up against the genitals Follow up with your PCP in 1 week if symptoms persist. Go to the emergency room if your symptoms worsen-high fever not controlled by Tylenol Motrin, confusion, weakness, abdominal pain, worsening of back pain, any other concerning symptoms. Patient Language: Persian Prescriptions: New cephalexin 500 mg capsule 500 mg PO Q12H 7 Days Qty: 14 0RF No Action ergocalciferol (vitamin D2) 1,250 mcg (50,000 unit) capsule fluticasone propionate [Flonase Allergy Relief] 50 mcg/actuation spray,suspension 1 spray intranasal BID Qty: 16 0RF Rx Instructions: administer into each nostril (DME) Aerochamber MV Spacer See Rx Instructions .Route Qty: 1 0RF Rx Instructions: As directed escitalopram oxalate 20 mg Tablet 20 mg PO DAILY bupropion HCl 150 mg tablet extended release 24 hr 150 mg PO DAILY fluticasone propionate 50 mcg/actuation spray,suspension See Rx Instructions .ROUTE .COMPLEX Qty: 48 12RF Dose Instruction: PLACE 1 TO 2 SPRAYS INTO EACH NOSTRIL TWICE DAILY Rx Instructions: PLACE 1 TO 2 SPRAYS INTO EACH NOSTRIL TWICE DAILY lisinopril 20 mg tablet See Rx Instructions .ROUTE .COMPLEX Qty: 90 1RF Dose Instruction: TAKE 1 TABLET BY MOUTH EVERY DAY Rx Instructions: TAKE 1 TABLET BY MOUTH EVERY DAY omeprazole 40 mg capsule,delayed release(DR/EC) See Rx Instructions .ROUTE .COMPLEX Qty: 30 3RF Dose Instruction: TAKE 1 CAPSULE BY MOUTH EVERY DAY Rx Instructions: TAKE 1 CAPSULE BY MOUTH EVERY DAY albuterol sulfate 90 mcg/actuation HFA aerosol inhaler See Rx Instructions .ROUTE .COMPLEX Qty: 8.5 3RF Dose Instruction: INHALE 2 PUFFS BY MOUTH 4 TIMES A DAY NEEDED FOR SHORTNESS OF BREATH OR FOR WHEEZE Rx Instructions: INHALE 2 PUFFS BY MOUTH 4 TIMES A DAY NEEDED FOR SHORTNESS OF BREATH OR FOR WHEEZE Follow-up/Referrals: Clint Sánchez APRN [Primary Care Provider, Internal Medicine] Time of Disposition: 08:40 Quality NIHSS Nursing Documentation ED NIHSS nursing documentation: reviewed/agree
[2025-07-31 08:25] VITALS: BP 126/31; PULSE 81; RESP 16; TEMP 36.9; O2SAT 100
[2025-07-31 08:33] LABS: EDUAAPPEAR Cloudy; EDUABILI Negative (Negative); EDUABLOOD 3+ (Negative); EDUACOLOR1 Yellow; EDUAGLUCOSE Negative (Negative); EDUAKETONE Negative (Negative); EDUALEUKO 3+ (Negative); EDUANITRATE Positive (Negative); EDUAPH 6.0; EDUAPROTEIN 1+ (Negative); EDUASPGRAVITY 1.010; EDUAUROBILI 0.2
== END 2025-07-31 08:43 | disposition home or self-care (01) ==
PROVIDERS: Emergency Provider Nurse Practitioner Family; PCP Nurse Practitioner
DX: N30.01 Acute cystitis with hematuria (principal); I10 Essential (primary) hypertension; K21.9 Gastro-esophageal reflux disease without esophagitis; F41.9 Anxiety disorder, unspecified; M17.12 Unilateral primary osteoarthritis, left knee
CPT/HCPCS: 81003; 87086; 87186; 99213; G0463

== ENCOUNTER 2025-08-14 08:23 | Emergency (ER) | payer OTHER, SELFPAY ==
[2025-08-14 08:30] VITALS: BP 143/80; PULSE 76; RESP 18; TEMP 36.7; O2SAT 99
--- NOTE | 2025-08-14 08:59 | ED.SKABFB ---
HPI - Skin/Abscess/Foreign Bdy General Stated complaint: C/O Rash/allergic rx Time Seen by Provider: 08/14/25 09:00 Source: patient Mode of arrival: ambulatory Limitations: no limitations History of Present Illness HPI narrative: [place] is a 60-year-old female patient presenting to the clinic today with complaints of possible allergic reaction. She reports she was outside yesterday and thought she may have been bit by an insect on her back. Rash seems to be spreading. Noticed some tightness in her throat yesterday. She took 3 Benadryl and her symptoms did improve some. She denies any weakness in her throat this morning. States the rash does seem to be spreading now it is on her arms and chest and face. Denies any shortness of breath, difficulty swallowing, drooling, or chest pain. Related Data Home Medications ?Medication ?Instructions ?Recorded ?Confirmed ?Last Taken ?Type escitalopram oxalate 20 mg tablet 20 mg PO DAILY 01/10/21 08/14/25 04/29/25 05:00 History bupropion HCl 150 mg 24 hr tablet, 150 mg PO DAILY 04/20/25 08/14/25 04/29/25 05:00 History extended release ergocalciferol (vitamin D2) 1,250 05/27/25 Unknown History mcg (50,000 unit) capsule Allergies Allergy/AdvReac Type Severity Reaction Status Date / Time Sulfa (Sulfonamide Allergy Severe Hives, Verified 08/14/25 08:41 Antibiotics) blisters mouth scalded Review of Systems Review of Systems: Pertinent positives per HPI. Patient denies any fever, chills, headache, visual changes, dizziness, cough, runny nose, sore throat, shortness of breath, chest pain, palpitations, nausea, vomiting, diarrhea, constipation, abdominal pain, or any urinary issues. [facility] Past Medical History Medical History BMI 24.0-24.9, adult BMI 25.0-25.9,adult Essential hypertension Left knee pain Left knee DJD Osteoarthritis of carpometacarpal (CMC) joint of left thumb Medial meniscus tear Closed fracture of nasal bone Right knee pain Colon cancer screening Dysphagia GERD (gastroesophageal reflux disease) Anxiety History of blood pressure problems Surgical History Surgical History History of sinus surgery 2020 Family History Family History Mother Heart disease Hypertension High cholesterol Father Hypertension High cholesterol Carcinoma of colon Malignant neoplasm of prostate Sibling No problems noted. Social History Social History Smoking status: Never smoker Second hand tobacco smoke exposure: No Substance use: never Substance use type: does not use Do You Feel Safe in your Home?: Yes Lack of Transportation: No Lack of Food: Never True Current Housing: I Have Housing Concerned About Future Housing: Decline to Answer Difficulty Paying Gas/Electric Bills: Decline to Answer Difficulty Paying for Meds: Decline to Answer Currently Unemployed: Decline to Answer Education: Master's Degree or Higher Difficulty w/ Childcare or Family Care: No Living arrangements: alone Occupation/Education: occupation 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 There is no relevant family history pertinent to the patient complaint. Exam Narrative: General: Well-developed, well nourished, in no apparent distress Head: Normocephalic, atraumatic. Cardio: Regular rate and rhythm, s1 and s2 normal, no murmur appreciated. Resp: Clear to auscultation bilaterally, no rhonchi, rales, wheezing or rubs. Integumentary: Blunt, warm, and dry, red, raised, itchy, sporadic hives/possible insect bites to the back, face, chest, and arms. Course Course Emergency Course: Portions of this record may have been created with voice recognition software. Level of Care: Express Care Visit Vital Signs Vital signs: Vital signs reviewed MDM - Skin/Abscess/Foreign Bdy MDM Narrative Medical decision making narrative: At the time of visit patient is resting comfortably on the exam table. Patient appears to be nontoxic. Complaints of possible allergic reaction. She reports she was outside yesterday and thought she may have been bit by an insect on her back. Rash seems to be spreading. Noticed some tightness in her throat yesterday. She took 3 Benadryl and her symptoms did improve some. She denies any weakness in her throat this morning. States the rash does seem to be spreading now it is on her arms and chest and face. Denies any shortness of breath, difficulty swallowing, drooling, or chest pain. On exam patient has red, raised, hive-like rash/possible insect bites to the face, chest, back, and bilateral upper arms. Decadron 10 mg IM ordered. Medications: Decadron 10 mg IM given. Plan: I suspect patient is having allergic reaction. Prescription for taper dose of prednisone, triamcinolone cream, and Pepcid. Supportive measures were discussed with the patient and they voiced understanding discharge instructions and agrees to treatment plan. Return precautions reviewed Differential Diagnosis Differential diagnosis: Likely abscess of skin or subcutaneous tissue, viral exanthem, dermatophytosis, urticaria, herpes zoster, allergic reaction to drug, cellulitis, eczema, insect bites, impetigo and contact dermatitis Discharge Plan Discharge Clinical Impression: Allergic reaction Qualifiers: Encounter type: initial encounter Qualified Code(s): T78.40XA - Allergy, unspecified, initial encounter Patient Disposition: Home Condition: Stable Instructions: Antibiotic Form, General Allergic Reaction (ED) Additional Instructions: Apply triamcinolone cream as directed Take prednisone as directed- start on 08/15/25 Take Pepcid as prescribed Avoid hot showers Avoid scratching as this can cause a secondary infection May take Benadryl 25-50mg every 6 hours as needed for itching/swelling. Follow up with your PCP in 3-5 days if symptoms persist or sooner if they worsen Go to the Emergency Room if symptoms worsen- fever, rash spreading with treatment ,shortness of breath, difficulty swallowing, tongue swelling, drooling, or chest pain Patient Language: Burundian Prescriptions: New prednisone 10 mg tablet 10 mg PO DAILY Qty: 30 0RF Rx Instructions: 60mg po daily on day 1, 40mg po daily on days 2-4, 30mg po daily on days 5-6, 20mg po daily on days 7-8, 10mg po daily on days 9-10 triamcinolone acetonide 0.1 % cream 1 applic topical BID 7 Days Qty: 30 0RF famotidine [Pepcid] 40 mg tablet 40 mg PO DAILY 10 Days Qty: 10 0RF No Action ergocalciferol (vitamin D2) 1,250 mcg (50,000 unit) capsule fluticasone propionate [Flonase Allergy Relief] 50 mcg/actuation spray,suspension 1 spray intranasal BID Qty: 16 0RF Rx Instructions: administer into each nostril cephalexin 500 mg capsule 500 mg PO Q12H 7 Days Qty: 14 0RF (DME) Aerochamber MV Spacer See Rx Instructions .Route Qty: 1 0RF Rx Instructions: As directed escitalopram oxalate 20 mg Tablet 20 mg PO DAILY bupropion HCl 150 mg tablet extended release 24 hr 150 mg PO DAILY fluticasone propionate 50 mcg/actuation spray,suspension See Rx Instructions .ROUTE .COMPLEX Qty: 48 12RF Dose Instruction: PLACE 1 TO 2 SPRAYS INTO EACH NOSTRIL TWICE DAILY Rx Instructions: PLACE 1 TO 2 SPRAYS INTO EACH NOSTRIL TWICE DAILY lisinopril 20 mg tablet See Rx Instructions .ROUTE .COMPLEX Qty: 90 1RF Dose Instruction: TAKE 1 TABLET BY MOUTH EVERY DAY Rx Instructions: TAKE 1 TABLET BY MOUTH EVERY DAY omeprazole 40 mg capsule,delayed release(DR/EC) See Rx Instructions .ROUTE .COMPLEX Qty: 30 3RF Dose Instruction: TAKE 1 CAPSULE BY MOUTH EVERY DAY Rx Instructions: TAKE 1 CAPSULE BY MOUTH EVERY DAY albuterol sulfate 90 mcg/actuation HFA aerosol inhaler See Rx Instructions .ROUTE .COMPLEX Qty: 8.5 3RF Dose Instruction: INHALE 2 PUFFS BY MOUTH 4 TIMES A DAY NEEDED FOR SHORTNESS OF BREATH OR FOR WHEEZE Rx Instructions: INHALE 2 PUFFS BY MOUTH 4 TIMES A DAY NEEDED FOR SHORTNESS OF BREATH OR FOR WHEEZE Follow-up/Referrals: Clint Sánchez APRN [Primary Care Provider, Internal Medicine] Time of Disposition: 09:06 Quality NIHSS Nursing Documentation ED NIHSS nursing documentation: reviewed/agree
[2025-08-14] MEDS: dexAMETHasone SOD PHOS INJ 10 MG/ML 1 ML VIAL IM (09:17)
== END 2025-08-14 09:23 | disposition home or self-care (01) ==
PROVIDERS: Emergency Provider Nurse Practitioner Family; PCP Nurse Practitioner
DX: T78.40XA Allergy, unspecified, initial encounter (principal); I10 Essential (primary) hypertension; K21.9 Gastro-esophageal reflux disease without esophagitis; M17.12 Unilateral primary osteoarthritis, left knee; M18.12 Unilateral primary osteoarthritis of first carpometacarpal joint, left hand; F41.9 Anxiety disorder, unspecified
CPT/HCPCS: 96372; 99213; G0463; J1100

== ENCOUNTER 2025-08-24 08:14 | Outpatient (CLI) | payer OTHER, SELFPAY ==
--- NOTE | ~2025-08-24 | DEXA_ITS ---
Bone Density Report Name: TATYANA MORALES Age: 60 Sex: Female Ethnicity: White Date of : 1965 Indication: osteopenia; Referring Provider: KIMBERLY, AUGUST Esteves Study: Bone densitometry was performed. Exam Date: August 24, 2025 Accession number: [id number] Bone Density: Region BMD T-score Z-score Classification AP Spine(L1-L4) 0.810 -2.2 -0.7 Osteopenia Femoral Neck (Left) 0.608 -2.2 -0.9 Osteopenia Total Hip (Left) 0.738 -1.7 -0.7 Osteopenia Femoral Neck (Right) 0.578 -2.4 -1.1 Osteopenia Total Hip (Right) 0.709 -1.9 -1.0 Osteopenia Total Hip Mean 0.723 -1.8 -0.9 Osteopenia World Health Organization criteria for BMD impression classify patients as: Normal (T-score at or above -1.0), Osteopenia (T-score between -1.0 and -2.5), or Osteoporosis (T-score at or below -2.5). 10-year Fracture Risk(1): Major Osteoporotic Fracture 11% Hip Fracture 1.8% Reported Risk Factors: [place] (), Neck BMD=0.578, BMI=23.6 (1) FRAX(R) Version 3.08. Fracture probability calculated for an untreated patient. Fracture probability may be lower if the patient has received treatment. Previous Exams: Region Exam Age BMD T-score BMD Change BMD Change Date g/cm2 vs Baseline vs Previous AP Spine (L1-L4) 08/24/2025 60 0.810 -2.2 0.022 (2.9%) 0.022 (2.9%) 09/07/2021 56 0.788 -2.4 Total Hip(Left) 08/24/2025 60 0.738 -1.7 0.035 (5.1%)* 0.035 (5.1%)* 09/07/2021 56 0.702 -2.0 Total Hip(Right) 08/24/2025 60 0.709 -1.9 0.003 (0.5%) 0.003 (0.5%) 09/07/2021 56 0.705 -1.9 *Denotes significance at 95% confidence level, LSC for AP Spine = 0.022 g/cm2, LSC for Total Hip = 0.027 g/cm2 Clinical Information Provided by Patient: Has used the following medications: Vitamin D, Calcium Patient maximum height was 66.0 Menopause Age: 50 No regular weight bearing exercise Does not regularly consume dairy products Drinks caffeinated beverages Onset of menses at age 14 Number of children 0 Impression: The patient has low bone mass, based on the Right Femoral Neck T-score. The patient has an estimated ten-year risk of hip fracture of 1.8% and an estimated ten-year risk of major fracture of 11%, based on the WHO FRAX algorithm. No significant bone loss was observed. Discussion: BONE DENSITY IS LOW AT ONE OR MORE SKELETAL SITES. This patient's lowest T-score is low at one or more skeletal sites. It meets the World Health Organization's (WHO) criteria for ?low bone mass? (T-score between -1.0 and -2.5). The patient's 10-year risk of fracture as calculated by FRAX is less than the threshold where pharmacological therapy is recommended by the National Osteoporosis Foundation (NOF). However, all treatment decisions require clinical judgment and consideration of individual patient factors, including patient preferences, comorbidities, previous drug use, risk factors not captured in the FRAX model (e.g., frailty, falls, vitamin D deficiency, increased bone turnover, interval significant decline in bone density) and possible under or overestimation of fracture risk by FRAX. The patient should follow a healthful lifestyle (good nutrition with adequate calcium and vitamin D, and appropriate weight-bearing exercise). Follow-Up: Consider repeating this study in 2 to 3 years to reassess this patient's status, or sooner if there is some new clinical indication. Reported by: HÉCTOR on 08/24/2025 8:53:00 AM. Reviewed, dictated and finalized at location A.
--- OUTSIDE RECORDS SUMMARY | 2025-08-24 08:22 | XMS_ITS | Clinical Summary ---
Author Organization [facility] Address [address], [address] [id number] Phone Care Team Providers Care Haul Driver Name Role Phone Unavailable Primary Care Provider [...] Virus (HCV) Screening 1965 TdaP Immunization 1965 Varicella Immunization (1 of 2 - 13+ 2-dose series) 1978 Pap Smear 1986 Cervical Cancer Screening (CCS) 1995 HPV/Cotest 1995 Cologuard 2010 Colonoscopy 2010 Colorectal Cancer Screening 2010 Immunochemical Fecal Occult Blood 2010 Pneumococcal Immunization (5 0+ years) (1 of 1 - PCV) 2015 Zoster Immunization (1 of 2) 2015 Influenza Immunization (#1) 2025 SARS-COV-2 Immunization ( - season) 2025 Respiratory Syncytial Virus (RSV) Immunization (Adult) (1 - 1-dose 75+ series) 2040 Hepatitis B Immunization Aged Out No longer eligible based on patient's age to complete this topic Human Papillomavirus (HPV) Immunization Aged Out No longer eligible b ased on patient's age to complete this topic Meningococcal Immunization (ACWY) Aged Out No longer eligible based on patient's age to complete this topic Rotavirus Immunization Aged Out No lo nger eligible based on patient's age to complete this topic Insurance MEDICAID [employer]
--- OUTSIDE RECORDS SUMMARY | 2025-08-24 08:22 | XMS_ITS | Encounter Summary ---
Author Organization [facility] Address [address] [place] [address] Care Team Providers Care [employer] Express Clerk Name Role Phone Unavailable Primary Care Provider Unavailabl e Encounter Details Date Type Department Care Team (Late st Contact Info) Description 08/31/1998 Outpatient Historical [facility] Jesus Lin MD [address] [place] [address] Unspecified sinusitis (chronic) (Primary Dx) Social History Tobacco Use Types Packs/Day Years Used Date Smoking Tobacco: Never Assessed Comments Unknown Sex and Gender Information Value Date Recorded Sex Assigned at Not on file Legal Sex Female 3:16 AM [employer] Gender Identity Not on file Sexual Orientation Not on file documented as of this encounter Plan of Treatment Not on file documented as of this encounter Visit Diagnoses Diagnosis Unspecified sinusitis (chronic)- Primary documented in this encounter
--- OUTSIDE RECORDS SUMMARY | 2025-08-24 08:22 | XMS_ITS | Data Portability ---
Author Organization [facility] Address [address] [place] [address] Care Team Providers Care [employer]orer Coreroom Name Role Phone YUE PALACIO Primary Care Provider [phone] Assessment Encounter Date Assessment Date Assessment LastModified by Organization Details LastModified Time 02/02/2021 02/02/2021 plan on adding wellbutrin, if [...] new symptoms. [email or web address] Not available 09/18/2023 18:22:54 01/27/2025 01/27/2025 Annual gynecological exam performed. Patient will come back in a year unless there are new symptoms. [email or web address] Not available 01/27/2025 17:08:38 Plan of Treatment Reminders Order Date Submit Date Provider Last Modified By Organization Details Last Modified Time Details Appointments None recorded. Lab pap, IG + HR HPV - HPV regardless but if HPV is positive need subtyping 16,18/45 2024 025 [facility] (Lab), [address], [place], [address], 5 19:58:46 CMP, serum or plasma 2024 025 [facility] (Lab), [address], [place], [address], 5 13:47:31 TSH, serum or plasma 2024 025 [facility] (Lab), [address], [place], [address], 5 05:01:53 lipid panel, blood 2024 025 [facility] (Lab), [address], [place], [address], 5 13:47:31 CBC w/ auto diff 2024 025 [facility] (Lab), [address], [place], [address], 5 05:01:54 HbA1c (hemoglobin A1c), blood 2024 025 [facility] (Lab), [address] [place], [address], 5 16:38:57 25-hydroxyv itamin D2 + 25-hydroxyv itamin D3, QN, serum or plasma 2024 025 [facility] (Lab), [address] [place], [address], 5 05:01:54 urinalysis, dipstick 2023 024 [facility], [address], [address], [place], [address], 4 12:51:38 vitamin D, 25-hydroxy, total, serum 2022 023 [facility] (Lab), [address], [place], [address], 3 04:59:45 HbA1c (hemoglobin A1c), blood 2022 023 [facility] (Lab), [address], [place], [address], 3 04:59:45 CBC w/ auto diff 2022 023 [facility] (Lab), [address], [place], [address], 3 04:59:43 lipid panel, blood 2022 023 [facility] (Lab), [address], [place], [address], 3 04:59:44 CMP, serum or plasma 2022 023 [facility] (Lab), [address], [place], [address], 3 04:59:44 TSH, serum or plasma 2022 023 [facility] (Lab), [address], [place], [address], 3 04:59:44 Referral None recorded. Procedures None recorded. Surgeries None recorded. Imaging MAMMO, screening, digital, bilateral 2024 025 [facility], [address], [place], [address], 5 05:01:54 DEXA, axial skeleton + vertebral fracture assessment 2024 025 [facility], [address], [address], [place], [address], 5 04:06:03 MAMMO, diagnostic, unilateral - right 2023 024 [facility], [address], [place], [address], 4 17:35:51 US, breast, unilateral 2023 024 [facility], [address], [place], [address], 5 05:01:40 MAMMO, screening, bilateral [id number] [facility], [address], [place], [address], 4 13:58:46 Medication Orders bupropion HCl XL 150 mg 24 hr tablet, extended release 2024 025 [facility] #[id number], [address], [place], [address], 5 17:26:27 escitalopra m 20 mg tablet 2024 025 [facility] #[id number], [address], [place], [address], 5 17:26:27 ciprofloxac in 500 mg tablet 2023 025 [facility] #[id number], [address], [place], [address], 5 17:12:46 bupropion HCl XL 150 mg 24 hr tablet, extended release 2022 023 [facility][id number], [address], [place], [address], 3 18:31:38 escitalopra m 20 mg tablet 2022 023 [id number] [address], [place], [address], 3 18:31:38 Lexapro 20 mg tablet 2020 021 [id number], [address], [place], [address], 1 09:29:26 Wellbutrin XL 150 mg 24 hr tablet, extended release 2020 021 [id number], [address], [place], [address], 1 09:29:27 Wellbutrin XL 150 mg 24 hr tablet, extended release 2020 021 [id number], [address], [place], [address], 1 16:47:46 Lexapro 20 mg tablet 2020 021 [id number], [address], [place], [address], 1 16:48:05 Patient TargetsNo targets recorded. Patient InstructionsNo instructions recorded. Reason for Referral None Reported. Results Created Date Observation Date Name Description Value Unit Range Abnormal Flag Note LastModifiedBy Organization Detail LastModifiedTime 09/12/20 21 09/12/2021 urina lysis , dipst ick Leukocytes normal Not Available [facility] [address], [place], [address], 09/12/2021 19:32:55 09/12/20 21 09/12/2021 urina lysis , dipst ick Nitrite normal Not Available [facility] [address], [place], [address], 09/12/2021 19:32:55 09/12/20 21 09/12/2021 urina lysis , dipst ick Urobilinogen normal Not Available [facility] aisha [address], [place], [address], 09/12/2021 19:32:55 09/12/20 21 09/12/2021 urina lysis , dipst ick Protein normal Not Available [facility] [address], [place], [address], 09/12/2021 19:32:55 09/12/20 21 09/12/2021 urina lysis , dipst ick pH normal Not Available [facility] [address], [place], [address], 09/12/2021 19:32:55 09/12/20 21 09/12/2021 urina lysis , dipst ick Specific Morton normal Not Available [facility] [address], [place], [address], 09/12/2021 19:32:55 09/12/20 21 09/12/2021 urina lysis , dipst ick Ketone normal Not Available [facility] [address], [place], [address], 09/12/2021 19:32:55 09/12/20 21 09/12/2021 urina lysis , dipst ick Bilirubin normal Not Available [facility] [address], [place], [address], 09/12/2021 19:32:55 09/12/20 21 09/12/2021 urina lysis , dipst ick Glucose normal Not Available [facility] [address], [place], [address], 09/12/2021 19:32:55 09/12/20 21 09/12/2021 urina lysis , dipst ick Appearance normal Not Available [facility] [address], [place], [address], 09/12/2021 19:32:55 09/12/20 21 09/12/2021 urina lysis , dipst ick Color normal Not Available [facility] [address], [place], [address], 09/12/2021 19:32:55 01/18/20 22 01/17/2022 CBC W/DIF F WBC 5.4 10'3/ uL 3.6-10 .2 Not Available [facility] (Lab) [address], [place], [address], 01/18/2022 02:42:31 01/18/20 22 01/17/2022 CBC W/DIF F RBC 4.10 10'6/ uL (based on docume nted legal sex) 4.10-5 .30 Not Available [facility] (Lab) [address], [place], [address], 01/18/2022 02:42:31 01/18/20 22 01/17/2022 CBC W/DIF F HGB 11.9 g/dL (based on docume nted legal sex) 11.9-1 5.8 Not Available [facility] (Lab) [address], [place], [address], 01/18/2022 02:42:31 01/18/20 22 01/17/2022 CBC W/DIF F HCT 36.0 % (based on docume nted legal sex) 37.4-4 8.3 low Not Available [facility] (Lab) [address], [place], [address], 01/18/2022 02:42:31 01/18/20 22 01/17/2022 CBC W/DIF F MCV 89.0 fL 82.0-9 9.0 Not Available [facility] (Lab) [address], [place], [address], 01/18/2022 02:42:31 01/18/20 22 01/17/2022 CBC W/DIF F MCH 29.0 pg 27.0-3 3.0 Not Available [facility] (Lab) [address], [place], [address], 01/18/2022 02:42:31 01/18/20 22 01/17/2022 CBC W/DIF F MCHC 33.0 g/dL 32.0-3 6.0 Not Available [facility] (Lab) [address], [place], [address], 01/18/2022 02:42:31 01/18/20 22 01/17/2022 CBC W/DIF F RDW 13.0 % 11.0-1 5.0 Not Available [facility] (Lab) [address], [place], [address], 01/18/2022 02:42:31 01/18/20 22 01/17/2022 CBC W/DIF F plt 248 10'3/ uL 150-45 0 Not Available [facility] (Lab) [address], [place], [address], 01/18/2022 02:42:31 01/18/20 22 01/17/2022 CBC W/DIF F MPV 11.1 fL 9.8-12 .7 Not Available [facility] (Lab) [address], [place], [address], 01/18/2022 02:42:31 01/18/20 22 01/17/2022 CBC W/DIF F NRBC's 0.00 % 0 Not Available [facility] (Lab) [address], [place], [address], 01/18/2022 02:42:31 01/18/20 22 01/17/2022 CBC W/DIF F absolute NRBCs 0.0 10'3/ uL 0 Not Available [facility] (Lab) [address], [place], [address], 01/18/2022 02:42:31 01/18/20 22 01/17/2022 CBC W/DIF F neutrophils 56.0 % 37.0-7 2.0 Not Available [facility] (Lab) [address], [place], [address], 01/18/2022 02:42:31 01/18/20 22 01/17/2022 CBC W/DIF F lymphocytes 31.0 % 16.0-4 8.0 Not Available [facility] (Lab) [address], [place], [address], 01/18/2022 02:42:31 01/18/20 22 01/17/2022 CBC W/DIF F monocytes 10.0 % 4.0-14 .0 Not Available [facility] (Lab) [address], [place], [address], 01/18/2022 02:42:31 01/18/20 22 01/17/2022 CBC W/DIF F eosinophils 2.0 % 0.0-9. 0 Not Available [facility] (Lab) [address], [place], [address], 01/18/2022 02:42:31 01/18/20 22 01/17/2022 CBC W/DIF F basophils 1.0 % 0.0-2. 0 Not Available [facility] (Lab) [address], [place], [address], 01/18/2022 02:42:31 01/18/20 22 01/17/2022 CBC W/DIF F immature granulocytes 0.0 % no define d refere nce range Not Available [facility] (Lab) [address], [place], [address], 01/18/2022 02:42:31 01/18/20 22 01/17/2022 CBC W/DIF F absolute neutrophils 3.0 10'3/ uL 1.1-6. 0 Not Available [facility] (Lab) [address], [place], [address], 01/18/2022 02:42:31 01/18/20 22 01/17/2022 CBC W/DIF F absolute lymphocytes 1.7 10'3/ uL 0.7-3. 4 Not Available [facility] (Lab) [address], [place], [address], 01/18/2022 02:42:31 01/18/20 22 01/17/2022 CBC W/DIF F absolute monocytes 0.6 10'3/ uL 0.3-1. 0 Not Available [facility] (Lab) [address], [place], [address], 01/18/2022 02:42:31 01/18/20 22 01/17/2022 CBC W/DIF F absolute eosinophils 0.1 10'3/ uL 0.0-0. 6 Not Available [facility] (Lab) [address], [place], [address], 01/18/2022 02:42:31 01/18/20 22 01/17/2022 CBC W/DIF F absolute basophils 0.1 10'3/ uL 0.0-0. 1 Not Available [facility] (Lab) [address], [place], [address], 01/18/2022 02:42:31 01/18/20 22 01/17/2022 CBC W/DIF [...] resul ts are expec paco. Not Available [facility] (Lab) [address], [place], [address], 01/18/2022 02:42:31 01/18/20 22 01/17/2022 PHOSP HORUS phosphorus 3.1 mg/dL 2.5-5. 0 Not Available [facility] (Lab) [address], [place], [address], 01/18/2022 02:42:31 01/18/20 22 01/17/2022 CMP(C OMPRE HENSI VE METAB OLIC PANEL ) sodium 131 mmol/ L 133-14 6 low Not Available [facility] (Lab) [address], [place], [address], 01/18/2022 02:42:32 01/18/20 22 01/17/2022 CMP(C OMPRE HENSI VE METAB OLIC PANEL ) potassium 3.9 mmol/ L 3.5-5. 1 Not Available [facility] (Lab) [address], [place], [address], 01/18/2022 02:42:32 01/18/20 22 01/17/2022 CMP(C OMPRE HENSI VE METAB OLIC PANEL ) chloride 95 mmol/ L 98-107 low Not Available [facility] (Lab) [address], [place], [address], 01/18/2022 02:42:32 01/18/20 22 01/17/2022 CMP(C OMPRE HENSI VE METAB OLIC PANEL ) carbon dioxide 30 mmol/ L 21-31 Not Available [facility] (Lab) [address] [place], [address], 01/18/2022 02:42:32 01/18/20 22 01/17/2022 CMP(C OMPRE HENSI VE METAB OLIC PANEL ) anion gap 6 mmol/ L 4-13 Not Available [facility] (Lab) [address] [place], [address], 01/18/2022 02:42:32 01/18/20 22 01/17/2022 CMP(C OMPRE HENSI VE METAB OLIC PANEL ) blood urea nitrogen 11 mg/dL 7-25 Not Available [facility] (Lab) [address], [place], [address], 01/18/2022 02:42:32 01/18/20 22 01/17/2022 CMP(C OMPRE HENSI VE METAB OLIC PANEL ) creatinine 0.88 mg/dL 0.60-1 .30 Not Available [facility] (Lab) [address], [place], [address], 01/18/2022 02:42:32 01/18/20 22 01/17/2022 CMP(C OMPRE HENSI VE METAB OLIC PANEL ) egfrcr (CKD-epi 2020) 77 mL/mi n/1.7 3_m2 >=60 Not Available [facility] (Lab) [address], [place], [address], 01/18/2022 02:42:32 01/18/20 22 01/17/2022 CMP(C OMPRE HENSI VE METAB OLIC PANEL ) calcium 8.7 mg/dL 8.3-10 .5 Not Available [facility] (Lab) [address], [place], [address], 01/18/2022 02:42:32 01/18/20 22 01/17/2022 CMP(C OMPRE HENSI VE METAB OLIC PANEL ) glucose 110 mg/dL 70-100 high Not Available [facility] (Lab) [address], [place], [address], 01/18/2022 02:42:32 01/18/20 22 01/17/2022 CMP(C OMPRE HENSI VE METAB OLIC PANEL ) protein, total 6.3 g/dL 6.4-8. 3 low Not Available [facility] (Lab) [address], [place], [address], 01/18/2022 02:42:32 01/18/20 22 01/17/2022 CMP(C OMPRE HENSI VE METAB OLIC PANEL ) albumin 4.0 g/dL 3.5-5. 0 Not Available [facility] (Lab) [address], [place], [address], 01/18/2022 02:42:32 01/18/20 22 01/17/2022 CMP(C OMPRE HENSI VE METAB OLIC PANEL ) ALT 11 units /L 9-43 Not Available [facility] (Lab) [address], [place], [address], 01/18/2022 02:42:32 01/18/20 22 01/17/2022 CMP(C OMPRE HENSI VE METAB OLIC PANEL ) alkaline phosphatase 74 units /L 34-104 Not Available [facility] (Lab) [address], [place], [address], 01/18/2022 02:42:32 01/18/20 22 01/17/2022 CMP(C OMPRE HENSI VE METAB OLIC PANEL ) AST 14 units /L 13-39 Not Available [facility] (Lab) [address], [place], [address], 01/18/2022 02:42:32 01/18/20 22 01/17/2022 CMP(C OMPRE HENSI VE METAB OLIC PANEL ) bilirubin, total 0.2 mg/dL 0.2-1. 2 Not Available [facility] (Lab) [address], [place], [address], 01/18/2022 02:42:32 01/18/20 22 01/17/2022 TSH, REFLE X FREE T4 TSH 1.71 uIU/m L 0.30-5 .33 Not Available [facility] (Lab) [address] [place], [address], 01/18/2022 02:42:32 01/18/20 22 01/17/2022 VITAM IN D, 25-OH (TOTA L D2/D3 ) vitamin D, 25-hydroxy, total 48.4 NG/mL 30-80 NOTE: Defic iency : <20 ng/mL Insuf ficie ncy: 20-29 ng/mL Optim um Level : 30-80 ng/mL Possi ble Toxic ity: >80 ng/mL Most patie nts with toxic ity have level s >150 ng/mL . Not Available [facility] (Lab) [address], [place], [address], 01/18/2022 02:42:32 09/19/20 23 09/19/2023 CBC W/DIF F WBC 7.0 10'3/ uL 3.6-10 .2 Not Available [facility] (Lab) [address], [place], [address], 09/20/2023 04:59:42 09/19/20 23 09/19/2023 CBC W/DIF F RBC 4.36 10'6/ uL (based on docume nted legal sex) 4.10-5 .30 Not Available [facility] (Lab) [address], [place], [address], 09/20/2023 04:59:42 09/19/20 23 09/19/2023 CBC W/DIF F HGB 12.5 g/dL (based on docume nted legal sex) 11.9-1 5.8 Not Available [facility] (Lab) [address] [place], [address], 09/20/2023 04:59:42 09/19/20 23 09/19/2023 CBC W/DIF F HCT 38.6 % (based on docume nted legal sex) 37.4-4 8.3 Not Available [facility] (Lab) [address], [place], [address], 09/20/2023 04:59:42 09/19/20 23 09/19/2023 CBC W/DIF F MCV 88.5 fL 82.0-9 9.0 Not Available [facility] (Lab) [address], [place], [address], 09/20/2023 04:59:42 09/19/20 23 09/19/2023 CBC W/DIF F MCH 28.7 pg 27.0-3 3.0 Not Available [facility] (Lab) [address], [place], [address], 09/20/2023 04:59:42 09/19/20 23 09/19/2023 CBC W/DIF F MCHC 32.4 g/dL 32.0-3 6.0 Not Available [facility] (Lab) [address], [place], [address], 09/20/2023 04:59:42 09/19/20 23 09/19/2023 CBC W/DIF F RDW 12.7 % 11.0-1 5.0 Not Available [facility] (Lab) [address], [place], [address], 09/20/2023 04:59:42 09/19/20 23 09/19/2023 CBC W/DIF F plt 281 10'3/ uL 150-45 0 Not Available [facility] (Lab) [address], [place], [address], 09/20/2023 04:59:42 09/19/20 23 09/19/2023 CBC W/DIF F MPV 11.2 fL 9.8-12 .7 Not Available [facility] (Lab) [address], [place], [address], 09/20/2023 04:59:42 09/19/20 23 09/19/2023 CBC W/DIF F NRBC's 0.0 % 0 Not Available [facility] (Lab) [address], [place], [address], 09/20/2023 04:59:42 09/19/20 23 09/19/2023 CBC W/DIF F absolute NRBCs 0.0 10'3/ uL 0 Not Available [facility] (Lab) [address], [place], [address], 09/20/2023 04:59:42 09/19/20 23 09/19/2023 CBC W/DIF F neutrophils 68.9 % 37.0-7 2.0 Not Available [facility] (Lab) [address], [place], [address], 09/20/2023 04:59:42 09/19/20 23 09/19/2023 CBC W/DIF F lymphocytes 21.5 % 16.0-4 8.0 Not Available [facility] (Lab) [address], [place], [address], 09/20/2023 04:59:42 09/19/20 23 09/19/2023 CBC W/DIF F monocytes 6.7 % 4.0-14 .0 Not Available [facility] (Lab) [address], [place], [address], 09/20/2023 04:59:42 09/19/20 23 09/19/2023 CBC W/DIF F eosinophils 1.6 % 0.0-9. 0 Not Available [facility] (Lab) [address], [place], [address], 09/20/2023 04:59:42 09/19/20 23 09/19/2023 CBC W/DIF F basophils 1.0 % 0.0-2. 0 Not Available [facility] (Lab) [address], [place], [address], 09/20/2023 04:59:42 09/19/20 23 09/19/2023 CBC W/DIF F immature granulocytes 0.3 % no define d refere nce range Not Available [facility] (Lab) [address] [place], [address], 09/20/2023 04:59:42 09/19/20 23 09/19/2023 CBC W/DIF F absolute neutrophils 4.8 10'3/ uL 1.1-6. 0 Not Available [facility] (Lab) [address], [place], [address], 09/20/2023 04:59:42 09/19/20 23 09/19/2023 CBC W/DIF F absolute lymphocytes 1.5 10'3/ uL 0.7-3. 4 Not Available [facility] (Lab) [address], [place], [address], 09/20/2023 04:59:42 09/19/20 23 09/19/2023 CBC W/DIF F absolute monocytes 0.5 10'3/ uL 0.3-1. 0 Not Available [facility] (Lab) [address], [place], [address], 09/20/2023 04:59:42 09/19/20 23 09/19/2023 CBC W/DIF F absolute eosinophils 0.1 10'3/ uL 0.0-0. 6 Not Available [facility] (Lab) [address], [place], [address], 09/20/2023 04:59:42 09/19/20 23 09/19/2023 CBC W/DIF F absolute basophils 0.1 10'3/ uL 0.0-0. 1 Not Available [facility] (Lab) [address] [place], [address], 09/20/2023 04:59:42 09/19/20 23 09/19/2023 CBC W/DIF [...] resul ts are expec paco. Not Available [facility] (Lab) [address], [place], [address], 09/20/2023 04:59:42 09/19/20 23 09/19/2023 TSH, REFLE X FREE T4 TSH 2.00 uIU/m L 0.30-5 .33 Not Available [facility] (Lab) [address], [place], [address], 09/20/2023 04:59:44 09/19/20 23 09/19/2023 LIPID PANEL ,AMA (LDL- CALC) total cholesterol 210 mg/dL 0-[address] [facility] (Lab) [address], [place], [address], 09/20/2023 04:59:44 09/19/20 23 09/19/2023 LIPID PANEL ,AMA (LDL- CALC) triglyceride s 171 mg/dL 0.00-1 50.00 high NCEP Refer ence Value s for Trigl yceri aura: Aruna l: <150 mg/dL Borde rline High: 150 - 199 mg/dL High: 200 - 499 mg/dL Very High: >/= 500 mg/dL Not Available [facility] (Lab) [address], [place], [address], 09/20/2023 04:59:44 09/19/20 23 09/19/2023 LIPID PANEL ,AMA (LDL- CALC) HDL cholesterol 72 mg/dL >[address] [facility] (Lab) [address] [place], [address], 09/20/2023 04:59:44 09/19/20 23 09/19/2023 LIPID PANEL [...] mg/dL , HDL <40 mg/dL Not Available [facility] (Lab) [address], [place], [address], 09/20/2023 04:59:44 09/19/20 23 09/19/2023 LIPID PANEL ,AMA (LDL- CALC) non-HDL cholesterol 138 mg/dL no refere nce range A reaso nable goal for non-H DL nohemi stero l is one that is 30 mg/dL highe r than the LDL nohemi stero l goal. Not Available [facility] (Lab) [address], [place], [address], 09/20/2023 04:59:44 09/19/2009/19/2023 LIPID PANEL ,AMA (LDL- CALC) chol/HDL ratio 2.9 . 0.0-5. 0 On January 21, 2023, [facility] labor atori bernard torrez ed the equat ion for calcu latin g estim ated low-d ensit y lipop rotei n-cho leste rol (LDL- C) from the Fried yoshi equat ion to the Macey n/Hop jennifer equat ion. This new equat ion is only valid for lipid panel s with trigl yceri aura < 400 mg/dL . Bonita pemberton ed that this new equat ion will impro ve the accur acy of LDL-C , espec ially in scena hernández when LDL-C lj ntrat ions are relat ively low (< 100 mg/dL ), trigl yceri aura are eleva paco, or patie nt is non-f astin g. Refer ences : - Macey bright, Avinash Shah, Spenser Briones , Edgar reynolds, Michael Latham, Michael pradhan, Butch navarro , and Joshua Mccann . 2013. Comp ariso n of a Novel Metho d vs the Fried yoshi Equat ion for Estim ating Low-D ensit y Lipop rotei n Nohemi stero l Level s from the Stand [facility] Lipid Profi le. [place]: The Journ al of the Ameri can Medic al Assoc iatio n 310 (19): 206- 68. - Rose Mary cervantes V, Eva J, Cordell cervantes A, Jayro M, Quentin e R, Jannie cervantes E, Izabella navarro RS, Ramy SR, Macey n SS. Fast ing Versu s Nonfa sting and Low-D ensit y Lipop rotei n Nohemi stero l Accur acy. Circu latio n. 2017Sep 30;137 (1):1 0-19. Not Available [facility] (Lab) [address], [place], [address], 09/20/2023 04:59:44 09/19/20 23 09/19/2023 CMP(C OMPRE HENSI VE METAB OLIC PANEL ) sodium 133 mmol/ L 133-14 6 Not Available [facility] (Lab) [address], [place], [address], 09/20/2023 04:59:44 09/19/20 23 09/19/2023 CMP(C OMPRE HENSI VE METAB OLIC PANEL ) potassium 4.0 mmol/ L 3.5-5. 1 Not Available [facility] (Lab) [address], [place], [address], 09/20/2023 04:59:44 09/19/20 23 09/19/2023 CMP(C OMPRE HENSI VE METAB OLIC PANEL ) chloride 99 mmol/ L 98-107 Not Available [facility] (Lab) [address] [place], [address], 09/20/2023 04:59:44 09/19/20 23 09/19/2023 CMP(C OMPRE HENSI VE METAB OLIC PANEL ) carbon dioxide 29 mmol/ L 21-31 Not Available [facility] (Lab) [address] [place], [address], 09/20/2023 04:59:44 09/19/20 23 09/19/2023 CMP(C OMPRE HENSI VE METAB OLIC PANEL ) anion gap 5 mmol/ L 4-13 Not Available [facility] (Lab) [address], [place], [address], 09/20/2023 04:59:44 09/19/20 23 09/19/2023 CMP(C OMPRE HENSI VE METAB OLIC PANEL ) blood urea nitrogen 14 mg/dL 7-25 Not Available [facility] (Lab) [address], [place], [address], 09/20/2023 04:59:44 09/19/20 23 09/19/2023 CMP(C OMPRE HENSI VE METAB OLIC PANEL ) creatinine 0.85 mg/dL 0.60-1 .30 Not Available [facility] (Lab) [address], [place], [address], 09/20/2023 04:59:44 09/19/20 23 09/19/2023 CMP(C OMPRE HENSI VE METAB OLIC PANEL ) egfrcr (CKD-epi 2020) 79 mL/mi n/1.7 3_m2 >=60 Not Available [facility] (Lab) [address], [place], [address], 09/20/2023 04:59:44 09/19/20 23 09/19/2023 CMP(C OMPRE HENSI VE METAB OLIC PANEL ) calcium 8.9 mg/dL 8.3-10 .5 Not Available [facility] (Lab) [address], [place], [address], 09/20/2023 04:59:44 09/19/20 23 09/19/2023 CMP(C OMPRE HENSI VE METAB OLIC PANEL ) glucose 88 mg/dL 70-100 Not Available [facility] (Lab) [address], [place], [address], 09/20/2023 04:59:44 09/19/20 23 09/19/2023 CMP(C OMPRE HENSI VE METAB OLIC PANEL ) protein, total 6.2 g/dL 6.4-8. 3 low Not Available [facility] (Lab) [address], [place], [address], 09/20/2023 04:59:44 09/19/20 23 09/19/2023 CMP(C OMPRE HENSI VE METAB OLIC PANEL ) albumin 4.2 g/dL 3.5-5. 0 Not Available [facility] [facility] [address], [place], [address], 09/20/2023 04:59:44 09/19/20 23 09/19/2023 CMP(C OMPRE HENSI VE METAB OLIC PANEL ) ALT 10 units /L 9-43 Not Available [facility] (Lab) [address], [place], [address], 09/20/2023 04:59:44 09/19/20 23 09/19/2023 CMP(C OMPRE HENSI VE METAB OLIC PANEL ) alkaline phosphatase 83 units /L 34-104 Not Available [facility] (Lab) [address], [place], [address], 09/20/2023 04:59:44 09/19/20 23 09/19/2023 CMP(C OMPRE HENSI VE METAB OLIC PANEL ) AST 13 units /L 13-39 Not Available [facility] (Lab) [address], [place], [address], 09/20/2023 04:59:44 09/19/20 23 09/19/2023 CMP(C OMPRE HENSI VE METAB OLIC PANEL ) bilirubin, total 0.3 mg/dL 0.2-1. 2 Not Available [facility] (Lab) [address], [place], [address], 09/20/2023 04:59:44 09/19/20 23 09/19/2023 VITAM IN D, 25-OH (TOTA L D2/D3 ) vitamin D, 25-hydroxy, total 45.1 NG/mL 30.0-1 00.0 Sugge stive of Defic iency : <20 ng/mL Sugge stive of Insuf ficie ncy: 20-29 ng/mL Sugge stive of Suffi cienc y: 30-10 0 ng/mL Sugge stive of Toxic ity: >150 ng/mL Not Available [facility] (Lab) [address] , [place], [address], 09/20/2023 04:59:45 09/19/2009/19/2023 HEMOG LOBIN A1C hemoglobin A1C 5.8 % 0-5.6 high The [facility]i can [employer] i[facility] n recom mends that a prima ry goal of thera py shoul d be a HBA1C of < 7% and that physi cians shoul d reeva luate the treat ment regim en in patie nts with HBA1C value s consi stent ly > 8%. <5.7% Aruna l 5.7 - 6.4% Incre ased risk for diabe eric >=6.5 % Diagn ostic of diabe eric <7.0% Goal of thera py >8.0% Actio n sugge sted Not Available [facility] (Lab) [address] , [place], [address], 09/20/2023 04:59:45 04/19/2004/19/2024 CULTU RE: URINE result report SEE RESULT S BELOW Test: Cultu re: Urine Speci men Sourc e: Urine - Clean Catch Speci men Type: Urine Speci men Date: 2023 1228 Resul t Date: 2023 0359 Resul t Statu s: Final resul t Abnor mal: No Resul ting Lab: [facility] [address] [facility] [address] Tel: CULTU RE ----- ----- ----- --- No growt h in 1 day (dete ction level of 10,00 0 colon ies / ml.) Not Available [facility] (Lab) [address] , [place], [address], 04/21/2024 05:02:08 07/22/20 24 04/19/2024 urina lysis , dipst ick Leukocytes + Not Available [facility] [address], [place], [address], 04/19/2024 12:51:13 04/19/20 24 04/19/2024 urina lysis , dipst ick Protein + Not Available [place] [address], [place], [address], 04/19/2024 12:51:13 01/28/20 25 01/27/2025 IMAGE GUIDE D PAP AND HPV REGAR DLESS image guided Pap, HPV regardless of Pap result SEE RESULT S BELOW CASE REPOR T: Cytol ogy Gynec ologi rosibel Repor t Case: [id number] Autho jone randy Provi aime: Mindy Terry, SEGUNDO Colle cted: 01/27 1644 Order ing Locat ion: [place] [facility] Recei erick: 01/28 0211 First Scree n: Shwetha Quiroz Speci men: Scree silvia Pap - Image d, Cervi x STATE MENT OF ADEQU ACY: Satis facto ry for evalu ation Trans forma tion zone compo nent canno t be defin itive ly ident ified due to the prese nce of atrop hy or other hormo nal torrez es ----- ----- ----- ----- ----- ----- ----- ----- ----- ----- ----- ----- ----- ----- ----- ----- ----- ---- FINAL DIAGN OSIS: Negat maximo for Intra epith elial Chuy bright or Roula monet (NIL) . Atrop hic cell taco dove. Elect franca solomon d by Shwetha Quiroz on 025 at 1854 CDT ----- ----- ----- ----- ----- ----- ----- ----- ----- ----- ----- ----- ----- ----- ----- ----- ----- ---- HPV RESUL TS: HPV mRNA E6/E7 : No HPV mRNA Detec paco NOTE: This high risk HPV mRNA assay detec ts fourt een high- risk HPV types (16, 18, 31, 33, 35, 39, 45, 51, 52, 56, 58, 59, 66, 68) witho ut diffe renti ation . COMME NT: This speci men was revie wed by a Cytot echno logis t and/o r Patho logis t (as indic ated in this repor t) after evalu ation using the Thinp rep Imagi ng Syste m. CLINI ROSIBEL INFOR MATIO N: Menst rual Statu s: LMP (if appli cable ): Clini rosibel Histo ry/Pr eviou s Pap: Type of Neopl hudson (if appli cable ): Signi fican t Clini rosibel Findi ngs: Other Histo ry: Hormo concetta (if appli cable ): PAP EDUCA KATHRIN L NOTE: The Pap Test is a scree silvia test with an inher ent false negat maximo rate. Liqui d-bas ed sampl ing may decre ase, but will not elimi lisseth, false negat maximo resul ts. A negat maximo resul t does not precl ude the prese nce and/o r devel opmen t of disea se, since the prese nce of abnor mal cells in the sampl e depen ds on the locat ion of the lesio n and sampl ing techn ique. Collin nued regul ar scree silvia is the best metho d of cance r preve ntion . If repor paco cytol ogic findi ng do not corre late with physi rosibel and/o r histo rical findi ngs, furth er inves tigat ion is recom laura d, as clini genesis calzada nted. Not Available [facility] (Lab) [address], [place], [address], 01/31/2025 19:58:46 05/11/20 21 05/10/2021 MAMMO , scree silvia, bilat eral No observ ation record ed. [address] [facility], [place], [address], 05/14/2021 17:09:29 09/12/20 21 09/07/2021 DEXA, axial skele ton + verte bral fract ure asses sment No observ ation record ed. [email or web address] [facility], [place], [address], 09/18/2023 18:51:31 04/16/20 24 04/06/2024 MAMMO , scree silvia, bilat eral No observ ation record ed. [email or web address] [address], [place], [address], 04/19/2024 09:46:46 04/19/20 24 04/06/2024 MAMMO , scree siliva, bilat eral No observ ation record ed. [address] [address], [place], [address], 04/20/2024 12:05:22 05/05/20 24 05/05/2024 MAMMO , diagn ostic , unila teral No observ ation record ed. [address] [address], [place], [address], 05/06/2024 11:27:19 Result Notes None recorded. Problems Name Problem SNOMED Code Status Onset Date Resolution Date Notes Provider Name and Address Organization Details Recorded Time Adult health examinat ion Completed 201402/02/2021 ROUTINE MEDICAL EXAM;Rec orded Elsewher e: No Locat ion: M[facility] S ource: EHR Calender Let Off Helper vicky: N Practi ce ID: 0001 Roderick lable Time: 03:00:00 PM Shana Crooks [facility] [place] - [facility] 16:28:54 Cyst of ovary [id number] Completed 201402/02/2021 Other and unspecif ied ovarian cyst;Rec orded Elsewher e: No Locat ion: Julieta terra [facility] S ource: EHR Calender Let Off Helper vicky: Negin Weiss ce ID: 0001 Roderick lable Time: 03:00:00 PM Shana Crooks kimber, [facility] 16:29:21 Screenin g for malignan t neoplasm of cervix Completed 201402/02/2021 Screenin g for malignan t neoplasm s of the cervix;R ecorded Elsewher e: No Locat ion: Julieta terra [facility]ce: [facility] vicky: Negin Myrnati ce ID: 0001 Roderick lable Time: 03:00:00 PM Shana Crooks [facility], [facility] 16:29:33 Speciali zed medical examinat ion Completed 201402/02/2021 ROUTINE HOME HEALTH NURSE LICENSED PRACTICAL EXAMINAT ION;Lul rded Elsewher e: No Locat ion: Julieta terra [facility] S ource: EHR Calender Let Off Helper vicky: Negin Abhishek ce ID: 0001 Roderick lable Time: 03:00:00 PM Shana Crooks [facility], [facility] 16:29:43 Dyspareu laurence [id number] Completed 201402/02/2021 Dyspareu laurence;Lul rded Elsewher e: No Locat ion: Julieta terra [facility] S ource: EHR Calender Let Off Helper vicky: Negin Weiss ce ID: 0001 Roderick lable Time: 04:45:00 PM Shana Crooks [facility], [facility] 16:29:23 Atrophic vaginiti s [id number] Completed 201402/02/2021 Atrophic vaginiti s;Record ed Elsewher e: No Locat ion: [facility] S ource: EHR Calender Let Off Helper vicky: Negin Weiss ce ID: 0001 Roderick lable Time: 03:00:00 PM Shana Crooks null, [facility] 1 16:28:58 Uterine leiomyom a [id number] Completed 201402/02/2021 Fibroid uterus;R ecorded Elsewher e: No Locat ion: [facility] S ource: EHR Calender Let Off Helper vicky: N Myrnati ce ID: 0001 Roderick lable Time: 03:00:00 PM Shana Crooks [facility], [facility] 16:29:[address] Concept Completed 201602/02/2021 Encntr for general adult medical exam w/o abnormal findings ;Recorde d Elsewher e: No Locat ion: [facility] S ource: EHR Calender Let Off Helper vicky: N Practi ce ID: 0001 Roderick lable Time: 05:00:00 PM Shana Crooks [facility] 16:29:[address] Concept Completed 201602/02/2021 Encntr for blow up operator exam (general ) (routine ) w/o abn findings ;Recorde d Elsewher e: No Locat ion: [facility] S ource: [facility] vicky: N Practi ce ID: 0001 Roderick lable Time: 05:00:00 PM Shana Crooks [facility], [facility] 16:29:41 Screenin g for malignan t neoplasm of rectum Completed 201602/02/2021 Encounte r for screenin g for malignan t neoplasm of rectum;R ecorded Elsewher e: No Locat ion: [facility] S ource: EHR Calender Let Off Helper vicky: N Practi ce ID: 0001 Roderick lable Time: 05:00:00 PM Shana Crooks [facility], [facility] 16:29:[address] Concept Completed 201602/02/2021 Anxiety disorder , unspecif ied;Lul rded Elsewher e: No Locat ion: [facility] S ource: EHR Calender Let Off Helper vicky: N Abhishek ce ID: 0001 Roderick lable Time: 06:00:00 PM Shana quiroga [facility] 16:29:37 Menopaus e present [id number] Completed 201602/02/2021 Menopaus al and female climacte eddie states;R ecorded Elsewher e: No [facility]: EHR Calender Let Off Helper vicky: N Myrnati ce ID: 0001 Roderick lable Time: 06:15:00 PM Shana quiroga [facility] 16:29:28 Blood leukocyt e number above referenc e range [id number] Completed 201802/02/2021 Elevated white blood cell count, unspecif ied;Lul rded Elsewher e: No Locat ion: [facility] S ource: [facility] vicky: N Myrnati ce ID: 0001 Roderick lable Time: 04:00:00 PM Shana quiroga [facility] 16:29:[address] Concept Completed 201802/02/2021 Encounte r for general adult medical exam w abnormal findings ;Practic e ID: 0001 Shana quiroga [facility] 16:29:31 Problem Notes None recorded. Procedures Surgical History Date Name Laterality Status Provider Name and Address Organization Details Recorded Time 04/29/20 21 maxillary sinusotomy completed Shana Crooks [facility] 09/24/2021 15:55:39 10/31/19 21 completed Rosalie Holguin [facility] 04/19/2024 12:26:31 05/26/20 20 Date of Last Pap Smear completed Evelyn Fine [facility] 09/18/2023 18:21:24 09/29/19 20 repair of meniscus completed Lluvia Beatty [facility] 01/27/2025 17:16:11 06/29/20 15 Date of Last Colonoscopy completed Rosalie Holguin [facility] 04/19/2024 12:26:31 colonoscopy completed Lluvia Beatty [facility] 01/27/2025 17:15:44 Imaging Results None recorded. Procedure Notes None recorded. Medical Equipment None Reported. Allergies Allergen ID Allergen Name Allergen Category Reaction Reaction Severity Criticality Documentation Date Start Date Code Code System Note Provider Name and Address Organization Details Recorded Time 1863 Substance with sulfonami de structure and antibacte rial mechanism of action (substanc e) medicatio n rash Not available Not available 05/26/2020 78076 8003 SNOMED Shana quiroga, [facility] 0 15:12:35 1864 Paxil medicatio n Not available Not available Not available 05/26/2020 96057 8 RxNorm blurr y visio n Shana quiroga, [facility] 0 15:13:21 79885 paroxetin e Not available Not available Not available Not available 08/17/20252021 36173 RxNorm Fatig ue unrec ogniz ed react ion (text : Other , code: 26145 07) (from exter [facility] sourc e) Not Available [place] - External Data Service - prod 5 13:09:34 Medications Name Sig Start Date Stop Date Status Note LastModified by Organization Details LastModified Time naproxen 375 mg tablet take 1 tablet by oral route 2 times every day with food 06/25 completed Prescrib ed Elsewher e: Yes Loca tion: [facility] odify By: bassem goetz DateTime : 12/30/19 15 03:00:00 PM Not Available Not Available Not Available meloxicam 15 mg tablet 05/26 completed Not Available Not Available Not Available Paxil 20 mg tablet take 1 tablet by oral route every day 12/23 completed Prescrib ed Elsewher e: No Locat ion: [facility] odify [facility] DateTime : 11/11/19 19 11:06:06 AM Not Available Not Available Not Available lisinopri l 20 mg tablet TAKE 1 TABLET BY MOUTH EVERY DAY active Not Available Not Available No t Available prednison e 20 mg tablet TAKE 2 TABLETS BY MOUTH DAILY FOR 3 DAYS THEN 1 TABLET DAILY FOR 3 DAYS 01/27 completed Not Available Not Available Not Available ciproflox acin 500 mg tablet TAKE 1 TABLET BY MOUTH EVERY DAY FOR 5 DAYS 01/27 completed Not Available Not Available Not Available omeprazol e 40 mg capsule,d elayed release TAKE 1 CAPSULE BY MOUTH EVERY DAY active Not Available Not Available No t Available doxycycli ne monohydra te 100 mg tablet TAKE 1 TABLET BY MOUTH TWICE A DAY 01/27 completed Not Available Not Available Not Available cephalexi n 500 mg capsule 09/12 completed Not Available Not Available Not Available omeprazol e 20 mg capsule,d elayed release TAKE 1 CAPSULE BY MOUTH TWICE A DAY 01/27 completed Not Available Not Available Not Available ergocalci ferol (vitamin D2) 1,250 mcg (50,000 unit) capsule TAKE 1 CAPSULE BY MOUTH ONCE WEEKLY 2024 active Not Available Not Available Not Avai lable oxycodone -acetamin ophen 7.5 mg-325 mg tablet 09/12 completed Not Available Not Available Not Available methylpre dnisolone 4 mg tablets in a dose pack TAKE 6 TABLETS ON DAY 1 DIRECTED ON PACKAGE AND DECREASE BY 1 TAB EACH DAY FOR A TOTAL OF 6 DAYS 09/18 completed Not Available Not Available Not Available albuterol sulfate HFA 90 mcg/actua tion aerosol inhaler INHALE 2 PUFFS BY MOUTH 4 TIMES A DAY NEEDED FOR SHORTNES S OF BREATH OR FOR WHEEZE active Not Available Not Available No t Available paroxetin e 40 mg tablet Take 1 tablet every day by oral route. 02/02 completed Not Available Not Available Not Available ketoconaz ole 2 % topical cream APPLY TO THE AFFECTED TOENAILS ONCE DAILY 09/18 completed Not Available Not Available Not Available Paxil 10 mg tablet take 1 tablet by oral route every day 09/18 completed Prescrib saturnino Veras e: No Locat ion: Masha ellison [facility] odify By: carolyn Ellison felicitas DateTime : 07/28/20 17 01:07:42 PM [...] ed Elsewher e: No Locat ion: Masha ellison [facility] odify By: bassem Blackburn r DateTime : 01/31/20 15 12:25:06 PM Not Available Not Available Not Available NuvaRing 0.12 mg-0.015 mg/24 hr vaginal insert 1 vaginal ring by vaginal route every month leave in place for 3 weeks, remove for 1 week 06/25 completed Prescrib ed Elsewher e: No Locat ion: Masha ellison [facility] odify By: bassem Blackburn r DateTime : 04/20/20 15 10:42:13 AM Not Available Not Available Not Available escitalop natividad 10 mg tablet TAKE 1 TABLET BY MOUTH EVERY DAY 02/02 completed Not Available Not Available Not Available escitalop natividad 20 mg tablet TAKE 1 TABLET BY MOUTH EVERY DAY 2024 active Not Available Not Available Not Avai lable Premarin 0.625 mg/gram vaginal cream insert (1G) by vaginal route every day cyclical ly, 3 weeks on and 1 week off 06/25 completed Prescrib ed Elsewher e: No Locat ion: Masha ellison [facility] odify By: bassem Blackburn r DateTime : 02/01/20 15 11:25:12 AM Not Available Not Available Not Available bupropion HCl XL 150 mg 24 hr tablet, extended release TAKE 1 TABLET BY MOUTH EVERY DAY 2024 active Not Available Not Available Not Avai lable TriNessa (28) 0.18 mg(7)/0.2 15 mg(7)/0.2 5 mg(7)-35 mcg tablet take 1 tablet by oral route every day 06/25 completed Prescrib ed Elsewher e: No Locat ion: [facility] odify By: bassem Blackburn r DateTime : 01/31/20 15 12:25:06 PM Not Available Not Available Not Available chlorhexi dine gluconate 0.12 % mouthwash 09/12 completed Not Available Not Available Not Available Activella 0.5 mg-0.1 mg tablet take 1 tablet by oral route every day 06/25 completed Prescrib ed Elsewher e: No Locat ion: [facility] odify By: bassem Blackburn r DateTime : 02/02/20 15 10:28:25 AM Not Available Not Available Not Available Fluzone Quad (PF) 60 mcg (15 mcg x 4)/0.5 mL IM syringe PHARMACI ST ADMINIST ERED IMMUNIZA TION ADMINIST ERED AT TIME OF DISPENSI NG 09/18 completed Not Available Not Available Not Available Vitals Date Recorded Body height Body mass index (BMI) Body weight Systolic And Diastolic Provider Name and Address Organization Details Last Updated DateTime 01/27/2025 165.74 cm 26.4 kg/m2 26819.78 g 125/77 mm[Hg] Lluvia Beatty [facility] 01/27/2025 17:12:19 Date Recorded Body height Body mass index (BMI) Body weight Systolic And Diastolic Provider Name and Address Organization Details Last Updated DateTime 02/02/2021 165.74 cm 25.4 kg/m2 96610.22 g 134/81 mm[Hg] Shana Crooks [facility] 02/02/2021 16:27:30 Date Recorded Body height Body mass index (BMI) Body weight Systolic And Diastolic Provider Name and Address Organization Details Last Updated DateTime 04/19/2024 165.74 cm 24.4 kg/m2 69411.67 g 126/72 mm[Hg] Rosalie Holguin [facility] 04/19/2024 12:42:47 Date Recorded Body height Body mass index (BMI) Body weight Systolic And Diastolic Provider Name and Address Organization Details Last Updated DateTime 09/12/2021 165.74 cm 23.6 kg/m2 76157.71 g 127/80 mm[Hg] Shana Crooks [facility] 09/12/2021 18:14:20 Date Recorded Systolic And Diastolic Provider Name and Address Organization Details Last Updated DateTime 09/18/2023 126/80 mm[Hg] Erin Marie, [facility] [address], [place], [address], [facility] 09/18/2023 18:51:47 Date Recorded Body height Body mass index (BMI) Body weight Systolic And Diastolic Provider Name and Address Organization Details Last Updated DateTime 09/18/2023 165.74 cm 26.6 kg/m2 45779.37 g 150/83 mm[Hg] Evelyn Babatunde [facility] 09/18/2023 18:25:07 Social History Question Answer Notes LastModified by Organizat ion Details LastModified Time Tobacco Smoking Status Never Smoker James quiroga, [facility] 09/12/2021 17:48:41 Do You Have An Advance Directive? No [email or web address] Information n ot available 02/02/2021 How Many Years Have You Consumed Alcohol? 30 [email or web address] Information not available 02/02/2021 Are You Blind Or Do You Have Difficulty Seeing? No [email or web address] Information n ot available 02/02/2021 What Is Your Level Of Caffeine Consumption? Occasional [email or web address] Information not available 02/02/2021 In The 14 Days Before Symptom Onset, Have You Had Close Contact With A Laboratory-confirm ed COVID-19 While That Case Was Ill? No Information n ot available 02/02/2021 In The 14 Days Before Symptom Onset, Have You Had Close Contact With A Person Who Is Under Investigation For COVID-19 While That Person Was Ill? No [email or web address] Information not available 02/02/2021 Have You Been To An Area Known To Be High Risk For COVID-19? No [email or web address] Information not available 02/02/2021 Are You Deaf Or Do You Have Serious Difficulty Hearing? No [email or web address] Information not available 02/02/2021 What Type Of Diet Are You Following? REGULAR [email or web address] Information n ot available 02/02/2021 What Is The Highest Grade Or Level Of School You Have Completed Or The Highest Degree You Have Received? CI22319-9 [email or web address] Information not available 02/02/2021 Are There Any Guns Present In Your Home? No Information not available 02/02/2021 What Was The Date Of Your Most Recent Tobacco Screening? 05/26/2020 [email or web address] Information not available 09/12/2021 Have You Ever Been Counseled For Unhealthy Alcohol Use? No Information not available 09/12/2021 Do You Use Protection During Sex? Always [email or web address] Information not available 02/02/2021 Do You Use Your Seat Belt Or Car Seat Routinely? Yes [email or web address] Information not available 02/02/2021 Do You Have Smoke And Carbon Monoxide Detectors In Your Home? Yes [email or web address] Information not available 02/02/2021 How Much Tobacco Do You Smoke? No [email or web address] Information not available 05/29/2020 Do You Use Sunscreen Routinely? Yes [email or web address] Information not available 02/02/2021 Has Tobacco Cessation Counseling Been Provided? No Information not available 09/12/2021 Have You Used IV Drugs? No [email or web address] Information not available 02/02/2021 Sex: Unknown Functional Status Question Answer Note LastModified by Organizat ion Details LastModified Time Do you use any illicit or recreational drugs? No [email or web address] Information not available 02/02/2021 What is your level of alcohol consumption? Occasional [email or web address] Information not available 05/29/2020 Do you or have you ever used smokeless tobacco? Never used smokeless tobacco Information not available 09/12/2021 Are you able to walk independently without assistance or assistive devices? 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 Never used electronic cigarettes Information not available 09/12/2021 What is your exercise level? Occasional [email or web address] Information not available 05/29/2020 Mental Status Question Answer Note LastModified by Organization D etails LastModified Time Do you feel stressed (tense, restless, nervous, or anxious, or unable to sleep at night)? [id number] [email or web address] Information not available 02/02/2021 Family History Relationship Description Onset Age of this Age Resolved Age Notes LastModified by Organization Details LastModified Time Mother Heart disease [email or web address] Not available 05/29 10:26:33 Mother Hypertensive disorder [email or web address] Not available 05/29 10:27:41 Mother Disorder of thyroid gland [email or web address] Not available 05/29 10:28:15 Mother Anemia [email or web address] Not available 05/29/2020 10:28:28 Mother Seizure disorder Not available 2023 12:34:20 Mother Malignant neoplasm of cervix uteri [email or web address] Not available 10:33:30 Mother Polyp of colon Not available 2023 12:34:20 Mother Malignant neoplasm of endometrium of corpus uteri suspected 40 [email or web address] Not available 2023 12:34:20 Maternal Grandmother Heart disease [email or web address] Not available 05/29 10:26:33 Maternal Grandmother Hypertensive disorder [email or web address] Not available 05/29 10:27:41 Sister Heart disease [email or web address] Not available 05/29 10:26:33 Father Hypertensive disorder [email or web address] Not available 05/29 10:27:41 Father Malignant neoplasm of prostate 79 [email or web address] Not available 2023 12:34:20 Father Malignant neoplasm of colon 81 [email or web address] Not available 2023 12:26:17 Father Polyp of colon [email or web address] Not available 2023 12:34:20 Father Malignant neoplasm of colon Not available 2023 12:34:20 Brother Asthma [email or web address] Not availabl e 05/29/2020 10:28:35 Brother Seizure disorder [email or web address] Not available 2023 12:34:20 Brother Hypertensive disorder [email or web address] Not available 2023 12:34:20 Paternal Uncle Malignant neoplasm of lung Not available 05/29 10:33:49 Unspecified Relation Malignant neoplasm of prostate nephew [email or web address] Not available 2023 12:34:20 Paternal Aunt Malignant neoplasm of colon [email or web address] Not available 2023 12:34:20 Notes:Brother: Seizure disor [...] Date of Last Mammogram Date of LMP N On BCP's at Conception? N STIs/STDs N HPV Vaccine N Colposcopy 50 Current Control Method Menopause If Post Menopausal, Age at Menopause 50 Date of Last Colonoscopy 06/29/2015 Sexually Active? [...] virus, quadrivalent, preservative 1 completed Shana quiroga, [facility] 09/12/2021 18:14:36 COVID-19, mRNA, LNP-S, PF, 30 mcg/0.3 mL dose 1 completed Shana quiroga [facility] 09/12/2021 18:14:37 Influenza, split virus, quadrivalent, PF 1 completed Shana quiroga [facility] 09/12/2021 18:14:37 Past Encounters Encounter ID Performer Location Encounter Start Date Encounter Closed Date Diagnosis/Indication Diagnosis SNOMED-CT Code Diagnosis ICD10 Code Diagnosis IMO Codes Diagnosis Note [id number] Leti Christianson [facility] [address],[place] [address] 05/26/2020 14:33:10 05/26/2020 15:42:48 Gynecologic examination 41383022 Z01.419 Menopausal symptom 68834 002 N95.1 Vitamin D deficiency 347 04266 E55.9 [id number] Leti Christianson [facility] [address],[place] [address] 02/02/2021 16:02:21 02/06/2021 23:45:45 Menopausal symptom 25121224 N95.1 [id number] Leti Christianson [facility] [address],[place] [address] 09/12/2021 17:46:28 09/13/2021 09:49:07 Gynecologic examination 11448093 Z01.419 [id number] [facility] [address],[place] [address] 09/18/2023 18:17:53 09/19/2023 08:45:03 Gynecologic examination 21813131 Z01.419 Take Calcium with Vitamin D 12-1500mg daily. Do monthly self breast exams. It is advised to get annual flu shot in the fall and she could obtain at [facility] or [facility] clinic. If you haven't received the Tdap [...] flashes. No issues. Adult heal th examination 443314274 Z00.00 Vitamin D deficiency 347 54296 E55.9 Screening mammography 24 919067 Z12.31 [id number] JASON Richard [place] [address],[place] [address] 04/19/2024 12:33:32 04/19/2024 14:48:44 Urinary symptoms 139548839 R39.9 urine cx sentrx sent for cipro - r/b/a reviewedav oid bladder irritants, encouraged adequate hydrationp recautions discussed Inconclusi ve mammography finding [id number] 11194 R92.2 needs additional right breast imaging - orderedord er given to pt, encouraged her to schedule thisquesti ons answered Time spent in visit is a total of 20 mins with at least 50% of visit consisting of counseling and review of plan of care. [id number] JASON Richard [place] [address] [address] 01/27/2025 17:02:46 01/28/2025 14:15:34 Gynecologic examination 00824687 Z01.695 [id number] WWEpostmen opausalPap - done todaySTI screen - declinedMa mmogram - order givenColon cancer screening - UTDDexa - order givenRouti ne labs - orderedRTC in 1 yr or sooner if needed doing well on current medication regimen for hot flashesref ills sent x 12 months, r/b/a reviewed, precaution s discussed Do monthly self breast exams.It is advised to get annual flu shot in the fall and she could obtain at local pharmacy. If you haven't received the Tdap vaccine in the last 10 years you should obtain one as well.Have mammogram yearly, bone density every 2-3 years and stay up to date on colon cancer screening. Engage in regular exercise. Avoid tobacco and illicit drugs. This lifestyle behavior pattern will lead to less health conditions and longer life span. If BMI greater than 25 dietary consult advised.Qu estions have been answered. Screening mammography 24 130395 Z12.31 [id number] Screening for osteoporosis 841938932 Z13.820 756051 History of nutritional deficiency 3494752834 9104 Z86.39 [id number] Adult heal th examination 935873178 Z00.00 [id number] Health Concerns Section Related Observation LastModified by Organization Detai ls LastModified Time None Recorded Concern Status LastModified by Organization Details LastModified Time None Recorded Advance Directives Directive N: Payers Insurance Date Sequence Insurance Name Policy Number Policy Darling Covered Member ID Darling Member ID Guarantor Name 04/16/2024 1 [facility] PRIOR TO 03/29/2021 (MEDICAID REPLACEMENT - HMO) Mehreen Espino [id number] Mehreen Espino 01/27/2025 1 [facility] ON OR AFTER 03/29/21 (MEDICAID REPLACEMENT - HMO) Mehreen Espino [id number] Mehreen Espino Notes Date Note Type Note Provider Name and Address Organization Details Recorded Time 1 text/html ROS as noted in the HPI doing well on lexapro 20 but still having some bad hot flashes at night would like to add something, anxiety is so much improved Leti Christianson, DAVIDA [address], [place], [address], [place] [facility] 02/02/2021 17:00:50 1 text/html Annual GYNReported by PatientBreast symptomsFor breast, patient reportsno breast pain,no breast lump, andno nipple discharge.Endocrine symptomsFor sexual complaints, patient reportsno sexual complaints,no pain during intercourse, andnormal libido. For menopausal symptoms, patient reportsno menopausal symptomsandnormal vaginal lubrication.Psychological symptomsFor psychological symptoms, patient reportsno depression,no anxiety, andno pmdd.Preventative measuresFor preventive measures, patient reportsencourage self breast examination,encourage regular exercise,encourage no tobacco use, andencourage regular mammograms starting age 40.up to date on mammogram and dexa, knee injury wearing brace on right no cycles vasomotor sxs resolved with meds also helping some anxiety that she hadROS as noted in the HPI Leti Christianson, [facility] [address], [place], [address], [facility] 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 For vaginal bleeding, patient reportshistory of menopause having occurredandno history of post menopausal bleeding. For urinary symptoms, patient reportsno hematuria,no incontinence,no nocturia, andno urinary frequency. For vulva, patient reportsno genital lesionandno vulvar atrophy. For vagina, patient reportsnormal vaginal dischargeandno vaginal atrophy.Breast symptomsFor breast, patient reportsno breast lump,no nipple discharge, andno breast pain.Psychological symptomsFor sexual complaints, patient reportsno sexual complaints. For psychological symptoms, patient reportsno depressionandno anxiety.Preventative measuresFor preventive measures, patient reportsencourage regular mammograms starting age 40,encourage self breast examination,encourage regular exercise,encourage no tobacco use,needs to schedule mammogram, andhistory of recent colonoscopy. Erin Marie, [facility]- [address], [place], [address], [facility] 09/18/2023 18:54:08 4 text/html 58yopresents for urinary symptomsurinary frequency, burning x 2-3 weeksneg vaginal symptomsneg flank painsneg n/v/f screening mammogram done 03/2024 bi-rads 0, needs aditional right breast imaging JASON Richard [address], [place], [address], [facility] 04/19/2024 14:32:49 5 text/html Annual Retail Sales Vitamin Consultant Post-MenopausalReported by PatientGenitourinary symptomsFor menopausal symptoms, patient reportsno menopausal symptomsandnormal vaginal lubrication. For vaginal bleeding, patient reportshistory of menopause having occurredandno history of post menopausal bleeding. For urinary symptoms, patient reportsno hematuria,no incontinence,no nocturia, andno urinary frequency. For vulva, patient reportsno genital lesionandno vulvar atrophy. For vagina, patient reportsnormal vaginal dischargeandno vaginal atrophy.Breast symptomsFor breast, patient reportsno breast lump,no nipple discharge, andno breast pain.Psychological symptomsFor sexual complaints, patient reportsno sexual complaints. For psychological symptoms, patient reportsno depressionandno anxiety.Preventative measuresFor preventive measures, patient reportsencourage regular mammograms starting age 40,encourage self breast examination,encourage regular exercise, andencourage no tobacco use.59yo wwepostmenopausallast pap 2019 wnlmammogram last 4colonoscopy UTD per ptdexa 2020 osteopenia doing well on lexapro and wellbutrin for hot flashes JASON Richard [address], [place], [address], [facility] 01/28/2025 10:07:45 OBGyn Episode No OBEpisode recorded.
--- OUTSIDE RECORDS SUMMARY | 2025-08-24 08:22 | XMS_ITS | Encounter Summary ---
Author Organization [facility] Address 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
--- OUTSIDE RECORDS SUMMARY | 2025-08-24 08:22 | XMS_ITS | Encounter Summary ---
Author Organization [facility] Address 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
--- OUTSIDE RECORDS SUMMARY | 2025-08-24 08:22 | XMS_ITS | Clinical Summary ---
Author Organization [facility] Address [address] [address] [place] [address] Phone Care Team Providers Care Skin Diver Name Role Phone Unavailable Primary Care Provider Unavailabl e Social History Tobacco Use Types Packs/Day Years Used Date Smoking Tobacco: Never Assessed Comments Unknown Sex and Gender Information Value Date Recorded Sex Assigned at Not on file Legal Sex Female 3:16 AM PARAOPTOMETRIC Gender Identity Not on file Sexual Orientation Not on file Plan of Treatment Health Maintenance Due Date Last Done Comments DTAP/TDAP/TD VACCINES (1 - Tdap) 1984 HPV/Cotest (21-29) 1986 CERVICAL CANCER SCREENING 1995 HPV/Cotest (30-65) 1995 PAP SMEAR 1995 BREAST CANCER SCREENING 2005 COLORECTAL SCREENING 2010 Colorectal Cancer Screening 2010 FIT-DNA Q 3 years 2010 FIT/FOBT Q 1 year 2010 Flex Sig/CT Colonography Q 5 years 2010 ZOSTER VACCINE (1 of 2) 2015 INFLUENZA VACCINE (#1) 2025 RSV VACCINE (60+ or ) (1 - 1-dose 75+ series) 2040 HEPATITIS B VACCINES Aged Out No long er eligible based on patient's age to complete this topic Insurance [employer] Commercial RX WAGNER PLANS (INTERNAL) [facility]
--- OUTSIDE RECORDS SUMMARY | 2025-08-24 08:22 | XMS_ITS | Encounter Summary ---
Author Organization [facility] Address 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
--- OUTSIDE RECORDS SUMMARY | 2025-08-24 08:22 | XMS_ITS | Clinical Summary ---
Author Organization [facility] [employer] Address [address] [place] [address] Care Team Providers Care Primary Health Organisation Manager Name Role Phone Ron Awad MD Primary Care Provider [phone] Source Comments [facility],non-owned Affiliates and Associated Physician Practices is amultiple site organization consisting of ambulatory clinics and hospital sitesin [place], [place], [place] and [place]. This disclosure is being madepursuant to the Care Everywhere program and may not contain all information available regarding this patient. Last updated 18.[facility] [employer] Allergies Active Allergy Reactions Criticality Noted Date [...] nasal sprayIndications :Acute pansinusitis, recurrence not specified Limaville 1 [place] into each nostril 2 times daily 1 Bottle 1 7 Active escitalopram (LEXAPRO) 20 MG tablet Take 1 (one) tablet by mouth once daily Active vitamin D, ergocalciferol, (DRISDOL) 1.25 MG (31037 UT) capsule TAKE 1 CAPSULE EVERY WEEK [...] 05/14/1983 DTAP/TDAP/TD VACCINES (1 - Tdap) 1984 Cervical Cancer Screening 1986 PAP SMEAR 1986 PAP with HPV 1995 PNEUMOCOCCAL VACCINE 50+ (1 of 1 - PCV) 2015 ZOSTER VACCINE (1 of 2) 2015 DEPRESSION SCREENING 09/29/2024 COVID-19 VACCINE (1 - 2024-2 6 season) 2025 INFLUENZA VACCINE (#1) 2025 0, 09/29/2014 Respiratory Syncytial Virus (RSV) Vaccine Pt: or over 60 yrs (1 - 1-dose 75+ series) 2040 HEPATITIS B VACCINE Aged Out No longe r eligible based on patient's age to complete this topic HIB VACCINE Aged Out No longer eligi [...] patient's age to complete this topic Insurance [place] [address] Care Teams Primary Health Organisation Manager Relationship Specialty Start Date End Date Ron Awad MD [address] [place] [address] PCP - General 07/22/22
== END 2025-08-24 08:15 | disposition home or self-care (01) ==
LOC: ANHFOHIMG 08:16
PROVIDERS: PCP Nurse Practitioner; Visit Provider Nurse Practitioner
DX: Z13.820 Encounter for screening for osteoporosis (principal); M85.88 Other specified disorders of bone density and structure, other site; M85.852 Other specified disorders of bone density and structure, left thigh; M85.851 Other specified disorders of bone density and structure, right thigh
CPT/HCPCS: 77080

== ENCOUNTER 2025-09-13 08:20 | Outpatient (CLI) | payer OTHER, SELFPAY ==
--- NOTE | ~2025-09-13 | MM_ITS ---
EXAMINATION: MM screening shilpa BI w saud HISTORY: Screening TECHNIQUE: Craniocaudal and mediolateral oblique 3-D tomosynthesis images were obtained and synthetic 2-D images were generated. CAD analysis was submitted and interpreted. COMPARISON: Comparison to multiple prior studies sequentially, with oldest reviewed study dated , 05/10/2021 BREAST PARENCHYMAL COMPOSITION: Dense: The breasts are heterogeneously dense, which may obscure small masses. FINDINGS: There is no evidence of suspicious mass, calcification, or architectural distortion to suggest malignancy in either breast. IMPRESSION: 1. No mammographic evidence of malignancy. 2. Recommend routine screening mammography in one year. BI-RADS Category 1: Negative Reviewed, dictated and finalized at location A. [facility]
--- OUTSIDE RECORDS SUMMARY | 2025-09-13 08:38 | XMS_ITS | Clinical Summary ---
Author Organization [facility] Address [address], [address] [address] Phone Care Team Providers Care Side Hemmer Name Role Phone Unavailable Primary Care Provider [...] Immunization (#1) 2025 SARS-COV-2 Immunization ( - 2024- season) 2025 Respiratory Syncytial Virus (RSV) Immunization [...]
--- OUTSIDE RECORDS SUMMARY | 2025-09-13 08:38 | XMS_ITS | Encounter Summary ---
Author Organization [facility] Address [address] [place] [address] Care Team Providers Care Pulmonology Technician Name Role Phone Unavailable Primary Care Provider Unavailabl e Encounter Details Date Type Department Care Team (Late st Contact Info) Description 04/13/1999 Outpatient [facility] Jesus Lin MD [address] [place] [address] Allergic rhinitis due to pollen (Primary Dx) Social History Tobacco Use Types Packs/Day Years Used Date Smoking Tobacco: Never Assessed Comments Unknown Sex and Gender Information Value Date Recorded Sex Assigned at Not on file Legal Sex Female 3:16 AM BOX ESTIMATOR Gender Identity Not on file Sexual Orientation Not on file documented as of this encounter Plan of Treatment Not on file documented as of this encounter Visit Diagnoses Diagnosis Allergic rhinitis due to pollen- Primary documented in this encounter
--- OUTSIDE RECORDS SUMMARY | 2025-09-13 08:38 | XMS_ITS | Encounter Summary ---
Author Organization [facility] Address 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
--- OUTSIDE RECORDS SUMMARY | 2025-09-13 08:38 | XMS_ITS | Encounter Summary ---
Author Organization [facility] Address 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
--- OUTSIDE RECORDS SUMMARY | 2025-09-13 08:38 | XMS_ITS | Clinical Summary ---
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
--- OUTSIDE RECORDS SUMMARY | 2025-09-13 08:38 | XMS_ITS | Encounter Summary ---
Author Organization [facility] Address 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
--- OUTSIDE RECORDS SUMMARY | 2025-09-13 08:39 | XMS_ITS | Data Portability ---
Author Organization [facility] [place] Address [address] [place] [address] Care Team Providers Care Coffee Blender Name Role Phone YUE PALACIO Primary Care Provider [phone] Assessment Encounter Date Assessment Date Assessment LastModified [...] a year unless there are new symptoms. Not available 01/27/2025 17:08:38 Plan of Treatment Reminders Order Date Submit Date Provider Last Modified By Organization Details Last Modified Time Details Appointments None recorded. Lab pap, IG + HR HPV - HPV regardless but if HPV is positive need subtyping 16,18/45 2024 025 [facility] (Lab), [address], [place], [address], 5 19:58:46 CMP, serum or plasma 2024 025 [facility] (Lab), [address], [place], [address], 5 13:47:31 TSH, serum or plasma 2024 025 [facility] (Lab), [address], [place], [address], 5 05:01:53 lipid panel, blood 2024 025 [facility] (Lab), [address], [place], [address], 5 13:47:31 CBC w/ auto diff 2024 025 [facility] (Lab), [address], [place], [address], 5 05:01:54 HbA1c (hemoglobin A1c), blood 2024 025 [facility] (Lab), [address] [place], [address], 5 16:38:57 25-hydroxyv itamin D2 + 25-hydroxyv itamin D3, QN, serum or plasma 2024 025 [facility] (Lab), [address] [place], [address], 5 05:01:54 urinalysis, dipstick 2023 024 [facility], [address], [address], [place], [address], 4 12:51:38 vitamin D, 25-hydroxy, total, serum 2022 023 [facility] (Lab), [address], [place], [address], 3 04:59:45 HbA1c (hemoglobin A1c), blood 2022 023 [facility] (Lab), [address], [place], [address], 3 04:59:45 CBC w/ auto diff 2022 023 [facility] (Lab), [address], [place], [address], 3 04:59:43 lipid panel, blood 2022 023 [facility] (Lab), [address], [place], [address], 3 04:59:44 CMP, serum or plasma 2022 023 [facility] (Lab), [address], [place], [address], 3 04:59:44 TSH, serum or plasma 2022 023 [facility] (Lab), [address], [place], [address], 3 04:59:44 Referral None recorded. Procedures None recorded. Surgeries None recorded. Imaging MAMMO, screening, digital, bilateral 2024 025 [facility], [address], [place], [address], 5 05:01:54 DEXA, axial skeleton + vertebral fracture assessment 2024 025 [facility], [address], [address], [place], [address], 5 04:06:03 MAMMO, diagnostic, unilateral - right 2023 024 [facility], [address], [place], [address], 4 17:35:51 US, breast, unilateral 2023 024 [facility], [address], [place], [address], 5 05:01:40 MAMMO, screening, bilateral [address] [facility], [address], [place], [address], 4 13:58:46 Medication Orders bupropion HCl XL 150 mg 24 hr tablet, extended release 2024 025 [facility] #[id number], [address], [place], [address], 5 17:26:27 escitalopra m 20 mg tablet 2024 025 [facility] #[id number], [address], [place], [address], 5 17:26:27 ciprofloxac in 500 mg tablet 2023 025 [facility]armacy #[id number], [address], [place], [address], 5 17:12:46 bupropion HCl XL 150 mg 24 hr tablet, extended release 2022 023 [facility][id number], [address], [place], [address], 3 18:31:38 escitalopra m 20 mg tablet 2022 023 [id number], [address], [place], [address], 3 18:31:38 Lexapro 20 mg tablet 2020 021 [id number], [address], [place], [address], 1 09:29:26 Wellbutrin XL 150 mg 24 hr tablet, extended release 2020 021 [id number], [address], [place], [address], 1 09:29:27 Wellbutrin XL 150 mg 24 hr tablet, extended release 2020 021 [id number], [address], [place], [address], 1 16:47:46 Lexapro 20 mg tablet 2020 021 [id number], [address], [place], [address], 1 16:48:05 Patient TargetsNo targets recorded. Patient InstructionsNo instructions recorded. Reason for Referral None Reported. Results Created Date Observation Date Name Description Value Unit Range Abnormal Flag Note LastModifiedBy Organization Detail LastModifiedTime 09/12/20 21 09/12/2021 urina lysis , dipst ick Leukocytes normal Not Available [facility] [address], [place], [address], 09/12/2021 19:32:55 09/12/20 21 09/12/2021 urina lysis , dipst ick Nitrite normal Not Available [facility] [address], [place], [address], 09/12/2021 19:32:55 09/12/20 21 09/12/2021 urina lysis , dipst ick Urobilinogen normal Not Available [facility] aisha [address], [place], [address], 09/12/2021 19:32:55 09/12/20 21 09/12/2021 urina lysis , dipst ick Protein normal Not Available [facility] [address], [place], [address], 09/12/2021 19:32:55 09/12/20 21 09/12/2021 urina lysis , dipst ick pH normal Not Available [facility] [address], [place], [address], 09/12/2021 19:32:55 09/12/20 21 09/12/2021 urina lysis , dipst ick Specific [place] normal Not Available [facility] [address], [place], [address], 09/12/2021 19:32:55 09/12/20 21 09/12/2021 urina lysis , dipst ick Ketone normal Not Available [facility] [address], [place], [address], 09/12/2021 19:32:55 09/12/20 21 09/12/2021 urina lysis , dipst ick Bilirubin normal Not Available [facility] [address], [place], [address], 09/12/2021 19:32:55 09/12/20 21 09/12/2021 urina lysis , dipst ick Glucose normal Not Available [facility] [address], [place], [address], 09/12/2021 19:32:55 09/12/20 21 09/12/2021 urina lysis , dipst ick Appearance normal [facility] Available [facility] [address], [place], [address], 09/12/2021 19:32:55 09/12/20 21 09/12/2021 urina lysis , dipst ick Color normal Not Available [facility] [address], [place], [address], 09/12/2021 19:32:55 01/18/20 22 01/17/2022 CBC W/DIF F WBC 5.4 10'3/ uL 3.6-10 .2 Not Available [facility] (Lab) [address], [place], [address], 01/18/2022 02:42:31 01/18/20 22 01/17/2022 CBC W/DIF F RBC 4.10 10'6/ uL (based on docume nted legal sex) 4.10-5 .30 Not Available [facility] (Lab) [address], [place], [address], 01/18/2022 02:42:31 01/18/20 22 01/17/2022 CBC W/DIF F HGB 11.9 g/dL (based on docume nted legal sex) 11.9-1 5.8 Not Available [facility] (Lab) [address], [place], [address], 01/18/2022 02:42:31 01/18/20 22 01/17/2022 CBC W/DIF F HCT 36.0 % (based on docume nted legal sex) 37.4-4 8.3 low Not Available [facility] (Lab) [address], [place], [address], 01/18/2022 02:42:31 01/18/20 22 01/17/2022 CBC W/DIF F MCV 89.0 fL 82.0-9 9.0 Not Available [facility] (Lab) [address], [place], [address], 01/18/2022 02:42:31 01/18/20 22 01/17/2022 CBC W/DIF F MCH 29.0 pg 27.0-3 3.0 Not Available [facility] (Lab) [address], [place], [address], 01/18/2022 02:42:31 01/18/20 22 01/17/2022 CBC W/DIF F MCHC 33.0 g/dL 32.0-3 6.0 Not Available [facility] (Lab) [address], [place], [address], 01/18/2022 02:42:31 01/18/20 22 01/17/2022 CBC W/DIF F RDW 13.0 % 11.0-1 5.0 Not Available [facility] (Lab) [address], [place], [address], 01/18/2022 02:42:31 01/18/20 22 01/17/2022 CBC W/DIF F plt 248 10'3/ uL 150-45 0 Not Available [facility] (Lab) [address], [place], [address], 01/18/2022 02:42:31 01/18/20 22 01/17/2022 CBC W/DIF F MPV 11.1 fL 9.8-12 .7 Not Available [facility] (Lab) [address], [place], [address], 01/18/2022 02:42:31 01/18/20 22 01/17/2022 CBC W/DIF F NRBC's 0.00 % 0 Not Available [facility] (Lab) [address], [place], [address], 01/18/2022 02:42:31 01/18/20 22 01/17/2022 CBC W/DIF F absolute NRBCs 0.0 10'3/ uL 0 Not Available [facility] (Lab) [address], [place], [address], 01/18/2022 02:42:31 01/18/20 22 01/17/2022 CBC W/DIF F neutrophils 56.0 % 37.0-7 2.0 Not Available [facility] (Lab) [address], [place], [address], 01/18/2022 02:42:31 01/18/20 22 01/17/2022 CBC W/DIF F lymphocytes 31.0 % 16.0-4 8.0 Not Available [facility] (Lab) [address], [place], [address], 01/18/2022 02:42:31 01/18/20 22 01/17/2022 CBC W/DIF F monocytes 10.0 % 4.0-14 .0 Not Available [facility] (Lab) [address], [place], [address], 01/18/2022 02:42:31 01/18/20 22 01/17/2022 CBC W/DIF F eosinophils 2.0 % 0.0-9. 0 Not Available [facility] (Lab) [address], [place], [address], 01/18/2022 02:42:31 01/18/20 22 01/17/2022 CBC W/DIF F basophils 1.0 % 0.0-2. 0 Not Available [facility] (Lab) [address], [place], [address], 01/18/2022 02:42:31 01/18/20 22 01/17/2022 CBC W/DIF F immature granulocytes 0.0 % no define d refere nce range Not Available [facility] (Lab) [address], [place], [address], 01/18/2022 02:42:31 01/18/20 22 01/17/2022 CBC W/DIF F absolute neutrophils 3.0 10'3/ uL 1.1-6. 0 Not Available [facility] (Lab) [address], [place], [address], 01/18/2022 02:42:31 01/18/20 22 01/17/2022 CBC W/DIF F absolute lymphocytes 1.7 10'3/ uL 0.7-3. 4 Not Available [facility] (Lab) [address], [place], [address], 01/18/2022 02:42:31 01/18/20 22 01/17/2022 CBC W/DIF F absolute monocytes 0.6 10'3/ uL 0.3-1. 0 Not Available [facility] (Lab) [address], [place], [address], 01/18/2022 02:42:31 01/18/20 22 01/17/2022 CBC W/DIF F absolute eosinophils 0.1 10'3/ uL 0.0-0. 6 Not Available [facility] (Lab) [address], [place], [address], 01/18/2022 02:42:31 01/18/20 22 01/17/2022 CBC W/DIF F absolute basophils 0.1 10'3/ uL 0.0-0. 1 Not Available [facility] (Lab) [address], [place], [address], 01/18/2022 02:42:31 01/18/20 22 01/17/2022 CBC W/DIF [...] ts are expec paco. Not Available [facility] (Lab) [address], [place], [address], 01/18/2022 02:42:31 01/18/20 22 01/17/2022 PHOSP HORUS phosphorus 3.1 mg/dL 2.5-5. 0 Not Available [facility] (Lab) [address], [place], [address], 01/18/2022 02:42:31 01/18/20 22 01/17/2022 CMP(C OMPRE HENSI VE METAB OLIC PANEL ) sodium 131 mmol/ L 133-14 6 low Not Available [facility] (Lab) [address], [place], [address], 01/18/2022 02:42:32 01/18/20 22 01/17/2022 CMP(C OMPRE HENSI VE METAB OLIC PANEL ) potassium 3.9 mmol/ L 3.5-5. 1 Not Available [facility] (Lab) [address], [place], [address], 01/18/2022 02:42:32 01/18/20 22 01/17/2022 CMP(C OMPRE HENSI VE METAB OLIC PANEL ) chloride 95 mmol/ L 98-107 low Not Available [facility] (Lab) [address], [place], [address], 01/18/2022 02:42:32 01/18/20 22 01/17/2022 CMP(C OMPRE HENSI VE METAB OLIC PANEL ) carbon dioxide 30 mmol/ L 21-31 Not Available [facility] (Lab) [address] [place], [address], 01/18/2022 02:42:32 01/18/20 22 01/17/2022 CMP(C OMPRE HENSI VE METAB OLIC PANEL ) anion gap 6 mmol/ L 4-13 Not Available [facility] (Lab) [address] [place], [address], 01/18/2022 02:42:32 01/18/20 22 01/17/2022 CMP(C OMPRE HENSI VE METAB OLIC PANEL ) blood urea nitrogen 11 mg/dL 7-25 Not Available [facility] (Lab) [address], [place], [address], 01/18/2022 02:42:32 01/18/20 22 01/17/2022 CMP(C OMPRE HENSI VE METAB OLIC PANEL ) creatinine 0.88 mg/dL 0.60-1 .30 Not Available [facility] (Lab) [address], [place], [address], 01/18/2022 02:42:32 01/18/20 22 01/17/2022 CMP(C OMPRE HENSI VE METAB OLIC PANEL ) egfrcr (CKD-epi 2020) 77 mL/mi n/1.7 3_m2 >=60 Not Available [facility] (Lab) [address], [place], [address], 01/18/2022 02:42:32 01/18/20 22 01/17/2022 CMP(C OMPRE HENSI VE METAB OLIC PANEL ) calcium 8.7 mg/dL 8.3-10 .5 Not Available [facility] (Lab) [address], [place], [address], 01/18/2022 02:42:32 01/18/20 22 01/17/2022 CMP(C OMPRE HENSI VE METAB OLIC PANEL ) glucose 110 mg/dL 70-100 high Not Available [facility] (Lab) [address], [place], [address], 01/18/2022 02:42:32 01/18/20 22 01/17/2022 CMP(C OMPRE HENSI VE METAB OLIC PANEL ) protein, total 6.3 g/dL 6.4-8. 3 low Not Available [facility] (Lab) [address], [place], [address], 01/18/2022 02:42:32 01/18/20 22 01/17/2022 CMP(C OMPRE HENSI VE METAB OLIC PANEL ) albumin 4.0 g/dL 3.5-5. 0 Not Available [facility] (Lab) [address], [place], [address], 01/18/2022 02:42:32 01/18/20 22 01/17/2022 CMP(C OMPRE HENSI VE METAB OLIC PANEL ) ALT 11 units /L 9-43 Not Available [facility] (Lab) [address], [place], [address], 01/18/2022 02:42:32 01/18/20 22 01/17/2022 CMP(C OMPRE HENSI VE METAB OLIC PANEL ) alkaline phosphatase 74 units /L 34-104 Not Available [facility] (Lab) [address], [place], [address], 01/18/2022 02:42:32 01/18/20 22 01/17/2022 CMP(C OMPRE HENSI VE METAB OLIC PANEL ) AST 14 units /L 13-39 Not Available [facility] (Lab) [address], [place], [address], 01/18/2022 02:42:32 01/18/20 22 01/17/2022 CMP(C OMPRE HENSI VE METAB OLIC PANEL ) bilirubin, total 0.2 mg/dL 0.2-1. 2 Not Available [facility] (Lab) [address], [place], [address], 01/18/2022 02:42:32 01/18/20 22 01/17/2022 TSH, REFLE X FREE T4 TSH 1.71 uIU/m L 0.30-5 .33 Not Available [facility] (Lab) [address] [place], [address], 01/18/2022 02:42:32 01/18/20 22 01/17/2022 VITAM IN D, 25-OH (TOTA L D2/D3 ) vitamin D, 25-hydroxy, total 48.4 NG/mL 30-80 NOTE: Defic iency : <20 ng/mL Insuf ficie ncy: 20-29 ng/mL Optim um Level : 30-80 ng/mL Possi ble Toxic ity: >80 ng/mL Most patie nts with toxic ity have level s >150 ng/mL . Not Available [facility] (Lab) [address], [place], [address], 01/18/2022 02:42:32 09/19/20 23 09/19/2023 CBC W/DIF F WBC 7.0 10'3/ uL 3.6-10 .2 Not Available [facility] (Lab) [address], [place], [address], 09/20/2023 04:59:42 09/19/20 23 09/19/2023 CBC W/DIF F RBC 4.36 10'6/ uL (based on docume nted legal sex) 4.10-5 .30 Not Available [facility] (Lab) [address], [place], [address], 09/20/2023 04:59:42 09/19/20 23 09/19/2023 CBC W/DIF F HGB 12.5 g/dL (based on docume nted legal sex) 11.9-1 5.8 Not Available [facility] (Lab) [address] [place], [address], 09/20/2023 04:59:42 09/19/20 23 09/19/2023 CBC W/DIF F HCT 38.6 % (based on docume nted legal sex) 37.4-4 8.3 Not Available [facility] (Lab) [address], [place], [address], 09/20/2023 04:59:42 09/19/20 23 09/19/2023 CBC W/DIF F MCV 88.5 fL 82.0-9 9.0 Not Available [facility] (Lab) [address], [place], [address], 09/20/2023 04:59:42 09/19/20 23 09/19/2023 CBC W/DIF F MCH 28.7 pg 27.0-3 3.0 Not Available [facility] (Lab) [address], [place], [address], 09/20/2023 04:59:42 09/19/20 23 09/19/2023 CBC W/DIF F MCHC 32.4 g/dL 32.0-3 6.0 Not Available [facility] (Lab) [address], [place], [address], 09/20/2023 04:59:42 09/19/20 23 09/19/2023 CBC W/DIF F RDW 12.7 % 11.0-1 5.0 Not Available [facility] (Lab) [address], [place], [address], 09/20/2023 04:59:42 09/19/20 23 09/19/2023 CBC W/DIF F plt 281 10'3/ uL 150-45 0 Not Available [facility] (Lab) [address], [place], [address], 09/20/2023 04:59:42 09/19/20 23 09/19/2023 CBC W/DIF F MPV 11.2 fL 9.8-12 .7 Not Available [facility] (Lab) [address], [place], [address], 09/20/2023 04:59:42 09/19/20 23 09/19/2023 CBC W/DIF F NRBC's 0.0 % 0 Not Available [facility] (Lab) [address], [place], [address], 09/20/2023 04:59:42 09/19/20 23 09/19/2023 CBC W/DIF F absolute NRBCs 0.0 10'3/ uL 0 Not Available [facility] (Lab) [address], [place], [address], 09/20/2023 04:59:42 09/19/20 23 09/19/2023 CBC W/DIF F neutrophils 68.9 % 37.0-7 2.0 Not Available [facility] (Lab) [address], [place], [address], 09/20/2023 04:59:42 09/19/20 23 09/19/2023 CBC W/DIF F lymphocytes 21.5 % 16.0-4 8.0 Not Available [facility] (Lab) [address], [place], [address], 09/20/2023 04:59:42 09/19/20 23 09/19/2023 CBC W/DIF F monocytes 6.7 % 4.0-14 .0 Not Available [facility] (Lab) [address], [place], [address], 09/20/2023 04:59:42 09/19/20 23 09/19/2023 CBC W/DIF F eosinophils 1.6 % 0.0-9. 0 Not Available [facility] (Lab) [address], [place], [address], 09/20/2023 04:59:42 09/19/20 23 09/19/2023 CBC W/DIF F basophils 1.0 % 0.0-2. 0 Not Available [facility] (Lab) [address], [place], [address], 09/20/2023 04:59:42 09/19/20 23 09/19/2023 CBC W/DIF F immature granulocytes 0.3 % no define d refere nce range Not Available [facility] (Lab) [address] [place], [address], 09/20/2023 04:59:42 09/19/20 23 09/19/2023 CBC W/DIF F absolute neutrophils 4.8 10'3/ uL 1.1-6. 0 Not Available [facility] (Lab) [address], [place], [address], 09/20/2023 04:59:42 09/19/20 23 09/19/2023 CBC W/DIF F absolute lymphocytes 1.5 10'3/ uL 0.7-3. 4 Not Available [facility] (Lab) [address], [place], [address], 09/20/2023 04:59:42 09/19/20 23 09/19/2023 CBC W/DIF F absolute monocytes 0.5 10'3/ uL 0.3-1. 0 Not Available [facility] (Lab) [address], [place], [address], 09/20/2023 04:59:42 09/19/20 23 09/19/2023 CBC W/DIF F absolute eosinophils 0.1 10'3/ uL 0.0-0. 6 Not Available [facility] (Lab) [address], [place], [address], 09/20/2023 04:59:42 09/19/20 23 09/19/2023 CBC W/DIF F absolute basophils 0.1 10'3/ uL 0.0-0. 1 Not Available [facility] (Lab) [address] [place], [address], 09/20/2023 04:59:42 09/19/20 23 09/19/2023 CBC W/DIF [...] resul ts are expec paco. Not Available [facility] (Lab) [address], [place], [address], 09/20/2023 04:59:42 09/19/20 23 09/19/2023 TSH, REFLE X FREE T4 TSH 2.00 uIU/m L 0.30-5 .33 Not Available [facility] (Lab) [address], [place], [address], 09/20/2023 04:59:44 09/19/20 23 09/19/2023 LIPID PANEL ,AMA (LDL- CALC) total cholesterol 210 mg/dL 0-199 high Not Available [facility] (Lab) [address], [place], [address], 09/20/2023 04:59:44 09/19/20 23 09/19/2023 LIPID PANEL ,AMA (LDL- CALC) triglyceride s 171 mg/dL 0.00-1 50.00 high NCEP Refer ence Value s for Trigl yceri aura: Aruna l: <150 mg/dL Borde rline High: 150 - 199 mg/dL High: 200 - 499 mg/dL Very High: >/= 500 mg/dL Not Available [facility] (Lab) [address], [place], [address], 09/20/2023 04:59:44 09/19/20 23 09/19/2023 LIPID PANEL ,AMA (LDL- CALC) HDL cholesterol 72 mg/dL >40 Not Available [facility] (Lab) [address] [place], [address], 09/20/2023 04:59:44 09/19/20 23 09/19/2023 LIPID PANEL [...] mg/dL , HDL <40 mg/dL Not Available [facility] (Lab) [address], [place], [address], 09/20/2023 04:59:44 09/19/20 23 09/19/2023 LIPID PANEL ,AMA (LDL- CALC) non-HDL cholesterol 138 mg/dL no refere nce range A reaso nable goal for non-H DL nohemi stero l is one that is 30 mg/dL highe r than the LDL nohemi stero l goal. Not Available [facility] (Lab) [address], [place], [address], 09/20/2023 04:59:44 09/19/2009/19/2023 LIPID PANEL ,AMA (LDL- CALC) chol/HDL ratio 2.9 . 0.0-5. 0 On January 21, 2023, [facility] labor atori bernard torrez ed the equat [...] stero l Level s [facility] Lipid Profi le. ALTAF: The Journ al [...] n. 2017Sep 30;137 (1):1 0-19. Not Available [facility] (Lab) [address], [place], [address], 09/20/2023 04:59:44 09/19/20 23 09/19/2023 CMP(C OMPRE HENSI VE METAB OLIC PANEL ) sodium 133 mmol/ L 133-14 6 Not Available [facility] (Lab) [address], [place], [address], 09/20/2023 04:59:44 09/19/20 23 09/19/2023 CMP(C OMPRE HENSI VE METAB OLIC PANEL ) potassium 4.0 mmol/ L 3.5-5. 1 Not Available [facility] (Lab) [address], [place], [address], 09/20/2023 04:59:44 09/19/20 23 09/19/2023 CMP(C OMPRE HENSI VE METAB OLIC PANEL ) chloride 99 mmol/ L 98-107 Not Available [facility] (Lab) [address] [place], [address], 09/20/2023 04:59:44 09/19/20 23 09/19/2023 CMP(C OMPRE HENSI VE METAB OLIC PANEL ) carbon dioxide 29 mmol/ L 21-31 Not Available [facility] (Lab) [address] [place], [address], 09/20/2023 04:59:44 09/19/20 23 09/19/2023 CMP(C OMPRE HENSI VE METAB OLIC PANEL ) anion gap 5 mmol/ L 4-13 Not Available [facility] (Lab) [address], [place], [address], 09/20/2023 04:59:44 09/19/20 23 09/19/2023 CMP(C OMPRE HENSI VE METAB OLIC PANEL ) blood urea nitrogen 14 mg/dL 7-25 Not Available [facility] (Lab) [address], [place], [address], 09/20/2023 04:59:44 09/19/20 23 09/19/2023 CMP(C OMPRE HENSI VE METAB OLIC PANEL ) creatinine 0.85 mg/dL 0.60-1 .30 Not Available [facility] (Lab) [address], [place], [address], 09/20/2023 04:59:44 09/19/20 23 09/19/2023 CMP(C OMPRE HENSI VE METAB OLIC PANEL ) egfrcr (CKD-epi 2020) 79 mL/mi n/1.7 3_m2 >=60 Not Available [facility] (Lab) [address], [place], [address], 09/20/2023 04:59:44 09/19/20 23 09/19/2023 CMP(C OMPRE HENSI VE METAB OLIC PANEL ) calcium 8.9 mg/dL 8.3-10 .5 Not Available [facility] (Lab) [address], [place], [address], 09/20/2023 04:59:44 09/19/20 23 09/19/2023 CMP(C OMPRE HENSI VE METAB OLIC PANEL ) glucose 88 mg/dL 70-100 Not Available [facility] (Lab) [address], [place], [address], 09/20/2023 04:59:44 09/19/20 23 09/19/2023 CMP(C OMPRE HENSI VE METAB OLIC PANEL ) protein, total 6.2 g/dL 6.4-8. 3 low Not Available [facility] (Lab) [address], [place], [address], 09/20/2023 04:59:44 09/19/20 23 09/19/2023 CMP(C OMPRE HENSI VE METAB OLIC PANEL ) albumin 4.2 g/dL 3.5-5. 0 Not Available [facility] (Lab) [address], [place], [address], 09/20/2023 04:59:44 09/19/20 23 09/19/2023 CMP(C OMPRE HENSI VE METAB OLIC PANEL ) ALT 10 units /L 9-43 Not Available [facility] (Lab) [address], [place], [address], 09/20/2023 04:59:44 09/19/20 23 09/19/2023 CMP(C OMPRE HENSI VE METAB OLIC PANEL ) alkaline phosphatase 83 units /L 34-104 Not Available [facility] (Lab) [address], [place], [address], 09/20/2023 04:59:44 09/19/20 23 09/19/2023 CMP(C OMPRE HENSI VE METAB OLIC PANEL ) AST 13 units /L 13-39 Not Available [facility] (Lab) [address], [place], [address], 09/20/2023 04:59:44 09/19/20 23 09/19/2023 CMP(C OMPRE HENSI VE METAB OLIC PANEL ) bilirubin, total 0.3 mg/dL 0.2-1. 2 Not Available [facility] (Lab) [address], [place], [address], 09/20/2023 04:59:44 09/19/20 23 09/19/2023 VITAM IN D, 25-OH (TOTA L D2/D3 ) vitamin D, 25-hydroxy, total 45.1 NG/mL 30.0-1 00.0 Sugge stive of Defic iency : <20 ng/mL Sugge stive of Insuf ficie ncy: 20-29 ng/mL Sugge stive of Suffi cienc y: 30-10 0 ng/mL Sugge stive of Toxic ity: >150 ng/mL Not Available [facility] (Lab) [address] , [place], [address], 09/20/2023 04:59:45 09/19/2009/19/2023 HEMOG LOBIN A1C hemoglobin [...] >8.0% Actio n sugge sted Not Available [facility] (Lab) [address] , [place], [address], 09/20/2023 04:59:45 04/19/2004/19/2024 CULTU RE: URINE result report SEE RESULT S BELOW Test: Cultu re: Urine Speci men Sourc e: Urine - Clean Catch Speci men Type: Urine Speci men Date: 2023 1228 Resul t Date: 2023 0359 Resul t Statu s: Final resul t Abnor mal: No Resul ting Lab: [facility] [address] [facility] [address] Tel: CULTU RE ----- ----- ----- --- No growt h in 1 day (dete ction level of 10,00 0 colon ies / ml.) Not Available [facility] (Lab) [address] , [place], [address], 04/21/2024 05:02:08 07/22/20 24 04/19/2024 urina lysis , dipst ick Leukocytes + Not Available [facility] [address], [place], [address], 04/19/2024 12:51:13 04/19/20 24 04/19/2024 urina lysis , dipst ick Protein + Not Available [place] [address], [place], [address], 04/19/2024 12:51:13 01/28/20 25 01/27/2025 IMAGE GUIDE [...] as clini genesis calzada nted. Not Available [facility] (Lab) [address], [place], [address], 01/31/2025 19:58:46 05/11/20 21 05/10/2021 MAMMO , scree silvia, bilat eral No observ ation record ed. [address] [facility], [place], [address], 05/14/2021 17:09:29 09/12/20 21 09/07/2021 DEXA, axial skele ton + verte bral fract ure asses sment No observ ation record ed. [email or web address] [facility], [place], [address], 09/18/2023 18:51:31 04/16/20 24 04/06/2024 MAMMO , scree silvia, bilat eral No observ ation record ed. [email or web address] [address], [place], [address], 04/19/2024 09:46:46 04/19/20 24 04/06/2024 MAMMO , scree silvia, bilat eral No observ ation record ed. [address] [address], [place], [address], 04/20/2024 12:05:22 05/05/20 24 05/05/2024 MAMMO , diagn ostic , unila teral No observ ation record ed. [address] [address], [place], [address], 05/06/2024 11:27:19 Result Notes None recorded. Problems Name Problem SNOMED Code Status Onset Date Resolution Date Notes Provider Name and Address Organization Details Recorded Time Adult health examinat ion Completed 201402/02/2021 ROUTINE MEDICAL EXAM;Rec orded Elsewher e: No Locat ion: Masha [facility] S ource: EHR Computer Forensics Analyst vicky: N Practi ce ID: 0001 Roderick lable Time: 03:00:00 PM Shana Crooks [facility] [place] - [facility] 16:28:54 Cyst of ovary [id number] Completed 201402/02/2021 Other and unspecif ied ovarian cyst;Rec orded Elsewher e: No Locat ion: Julieta terra [facility] S ource: EHR Computer Forensics Analyst vicky: Negin Weiss ce ID: 0001 Roderick lable Time: 03:00:00 PM Shana Crooks kimber, [facility] 16:29:21 Screenin g for malignan t neoplasm of cervix Completed 201402/02/2021 Screenin g for malignan t neoplasm s of the cervix;R ecorded Elsewher e: No Locat ion: Julieta terra [facility] Negin Myrnati ce ID: 0001 Roderick lable Time: 03:00:00 PM Shana Crooks [facility], [facility] 16:29:33 Speciali zed medical examinat ion Completed 201402/02/2021 ROUTINE CORPORATE COUNSEL EXAMINAT ION;Lul rded Elsewher e: No Locat ion: Julieta terra [facility] S ource: EHR Computer Forensics Analyst vicky: Negin Abhishek ce ID: 0001 Roderick lable Time: 03:00:00 PM Shana Crooks [facility], [facility] 16:29:43 Dyspareu laurence [id number] Completed 201402/02/2021 Dyspareu laurence;Lul rded Elsewher e: No Locat ion: Julieta terra [facility] S ource: EHR Computer Forensics Analyst vicky: Negin Weiss ce ID: 0001 Roderick lable Time: 04:45:00 PM Shana Crooks [facility], [facility] 16:29:23 Atrophic vaginiti s [id number] Completed 201402/02/2021 Atrophic vaginiti s;Record ed Elsewher e: No Locat ion: [facility] S ource: EHR Computer Forensics Analyst vicky: Negin Weiss ce ID: 0001 Roderick lable Time: 03:00:00 PM Shana Crooks null, [facility] 1 16:28:58 Uterine leiomyom a [id number] Completed 201402/02/2021 Fibroid uterus;R ecorded Elsewher e: No Locat ion: [facility] S ource: EHR Computer Forensics Analyst vicky: N Myrnati ce ID: 0001 Roderick lable Time: 03:00:00 PM Shana Crooks [facility], [facility] 16:29:[address] Concept Completed 201602/02/2021 Encntr for general adult medical exam w/o abnormal findings ;Recorde d Elsewher e: No Locat ion: [facility] S ource: EHR Computer Forensics Analyst vicky: N Practi ce ID: 0001 Roderick lable Time: 05:00:00 PM Shana Crooks [facility] 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 16:29:41 Screenin g for malignan t neoplasm of rectum Completed 201602/02/2021 Encounte r for screenin g for malignan t neoplasm of rectum;R ecorded Elsewher e: No Locat ion: [facility] S ource: EHR Computer Forensics Analyst vicky: N Practi ce ID: 0001 Roderick lable Time: 05:00:00 PM Shana Crooks [facility], [facility] 16:29:[address] Concept Completed 201602/02/2021 Anxiety disorder , unspecif ied;Lul rded Elsewher e: No Locat ion: [facility] S ource: EHR Computer Forensics Analyst vicky: N Abhishek ce ID: 0001 Roderick lable Time: 06:00:00 PM Shana quiroga [facility] 16:29:37 Menopaus e present [id number] Completed 201602/02/2021 Menopaus al and female climacte eddie states;R ecorded Elsewher e: No [facility]at [facility] S ource: EHR Computer Forensics Analyst vicky: N Myrnati ce ID: 0001 Roderick lable Time: 06:15:00 PM Shana quiroga [facility] 16:29:28 Blood leukocyt e number above referenc e range [id number] Completed 201802/02/2021 Elevated white blood cell count, unspecif ied;Lul rded Elsewher e: No Locat ion: [facility] S ource: [facility] vicky: N Myrnati ce ID: 0001 Roderick lable Time: 04:00:00 PM Shana quiroga [facility] 16:29:[address] Concept Completed 201802/02/2021 Encounte r for general adult medical exam w abnormal findings ;Practic e ID: 0001 Shana quiroga [facility] 16:29:31 Problem Notes None recorded. Procedures Surgical History Date Name Laterality Status Provider Name and Address Organization Details Recorded Time 04/29/20 21 maxillary sinusotomy completed Shana Crooks [facility] 09/24/2021 15:55:39 10/31/19 21 completed Rosalie Holguin [facility] 04/19/2024 12:26:31 05/26/20 20 Date of Last Pap Smear completed Evelyn Fine [facility] 09/18/2023 18:21:24 09/29/19 20 repair of meniscus completed Lluvia Beatty [facility] 01/27/2025 17:16:11 06/29/20 15 Date of Last Colonoscopy completed Rosalie Holguin [facility] 04/19/2024 12:26:31 colonoscopy completed Lluvia Beatty [facility] 01/27/2025 17:15:44 Imaging Results None recorded. [...] n rash Not available Not available 05/26/2020 76956 8003 SNOMED Shana quiroga, [facility] 0 15:12:35 1864 Paxil medicatio n Not available Not available Not available 05/26/2020 55246 8 RxNorm blurr y visio n Shana quiroga, [facility] 0 15:13:21 97537 paroxetin e Not available Not available Not available Not available 08/17/20252021 07473 RxNorm Fatig ue unrec ogniz ed react ion (text : Other , code: 05439 07) (from exter [facility] sourc e) Not Available sparta - External Data Service - prod 5 13:09:34 Medications Name Sig Start Date Stop Date Status Note LastModified by Organization Details LastModified Time naproxen 375 mg tablet take 1 tablet by oral route 2 times every day with food 06/25 completed Prescrib ed Elsewher e: Yes Loca tion: [facility] odify By: bassem goetz DateTime : 12/30/19 15 03:00:00 PM Not Available Not Available Not Available meloxicam 15 mg tablet 05/26 completed Not Available Not Available Not Available Paxil 20 mg tablet take 1 tablet by oral route every day 12/23 completed Prescrib ed Elsewher e: No Locat ion: [facility] odify By: [facility] DateTime : 11/11/19 19 [...] Veras e: No Locat ion: Masha ellison [facility] odify By: carolyn Ellison felicitas DateTime : [...] Elsewher e: No Locat ion: Masha ellison [facility] odify By: bassem Blackburn r DateTime : 01/31/20 15 12:25:06 PM Not Available Not Available Not Available NuvaRing 0.12 mg-0.015 mg/24 hr vaginal insert 1 vaginal ring by vaginal route every month leave in place for 3 weeks, remove for 1 week 06/25 completed Prescrib ed Elsewher e: No Locat ion: Masha ellison [facility] odify By: bassem Blackburn r DateTime : [...] Elsewher e: No Locat ion: Masha ellison [facility] odify By: bassem Blackburn r DateTime : [...] Prescrib ed Elsewher e: No Locat ion: [facility] odify By: bassem Blackburn r DateTime : 01/31/20 15 12:25:06 PM Not Available Not Available Not Available chlorhexi dine gluconate 0.12 % mouthwash 09/12 completed Not Available Not Available Not Available Activella 0.5 mg-0.1 mg tablet take 1 tablet by oral route every day 06/25 completed Prescrib ed Elsewher e: No Locat ion: [facility] odify By: bassem Blackburn r DateTime : [...] Updated DateTime 01/27/2025 165.74 cm 26.4 kg/m2 46635.78 g 125/77 mm[Hg] Lluvia Beatty [facility] 01/27/2025 17:12:19 Date Recorded Body height Body mass index (BMI) Body weight Systolic And Diastolic Provider Name and Address Organization Details Last Updated DateTime 02/02/2021 165.74 cm 25.4 kg/m2 76802.22 g 134/81 mm[Hg] Shana Crooks [facility] 02/02/2021 16:27:30 Date Recorded Body height Body mass index (BMI) Body weight Systolic And Diastolic Provider Name and Address Organization Details Last Updated DateTime 04/19/2024 165.74 cm 24.4 kg/m2 99720.67 g 126/72 mm[Hg] Rosalie Holguin [facility] 04/19/2024 12:42:47 Date Recorded Body height Body mass index (BMI) Body weight Systolic And Diastolic Provider Name and Address Organization Details Last Updated DateTime 09/12/2021 165.74 cm 23.6 kg/m2 51546.71 g 127/80 mm[Hg] Shana Crooks [facility] 09/12/2021 18:14:20 Date Recorded Systolic And Diastolic Provider Name and Address Organization Details Last Updated DateTime 09/18/2023 126/80 mm[Hg] Erin Marie, [facility] [address], [place], [address], [facility] 09/18/2023 18:51:47 Date Recorded Body height Body mass index (BMI) Body weight Systolic And Diastolic Provider Name and Address Organization Details Last Updated DateTime 09/18/2023 165.74 cm 26.6 kg/m2 57471.37 g 150/83 mm[Hg] Evelyn Babatunde [facility] 09/18/2023 18:25:07 Social History Question Answer Notes LastModified by Organizat ion Details LastModified Time Tobacco Smoking Status Never Smoker James quiroga, [facility] 09/12/2021 17:48:41 Do You Have An Advance Directive? No [email or web address] Information n ot available 02/02/2021 How Many Years Have You Consumed Alcohol? 30 [email or web address] Information not available 02/02/2021 Are You Blind Or Do You Have Difficulty Seeing? No Information n ot available 02/02/2021 What Is Your Level Of Caffeine Consumption? Occasional [email or web address] Information not available 02/02/2021 In The 14 Days Before Symptom Onset, Have You Had Close Contact With A Laboratory-confirm ed COVID-19 While That Case Was Ill? No [email or web address] Information n ot available 02/02/2021 In The 14 Days Before Symptom Onset, Have You Had Close Contact With A Person Who Is Under Investigation For COVID-19 While That Person Was Ill? No [email or web address] Information not available 02/02/2021 Have You Been To An Area Known To Be High Risk For COVID-19? No Information not available 02/02/2021 Are You Deaf Or Do You Have Serious Difficulty Hearing? No [email or web address] Information not available 02/02/2021 What Type Of Diet Are You Following? REGULAR [email or web address] Information n ot available 02/02/2021 What Is The Highest Grade Or Level Of School You Have Completed Or The Highest Degree You Have Received? [id number] [email or web address] Information not available 02/02/2021 Are There Any Guns Present In Your Home? No [email or web address] Information not available 02/02/2021 What Was The Date Of Your Most Recent Tobacco Screening? 05/26/2020 [email or web address] Information not available 09/12/2021 Have You Ever Been Counseled For Unhealthy Alcohol Use? No Information not available 09/12/2021 Do You Use Protection During Sex? Always [email or web address] Information not available 02/02/2021 Do You Use Your Seat Belt Or Car Seat Routinely? Yes [email or web address] Information not available 02/02/2021 Do You Have Smoke And Carbon Monoxide Detectors In Your Home? Yes Information not available 02/02/2021 How Much Tobacco Do You Smoke? No [email or web address] Information not available 05/29/2020 Do You Use Sunscreen Routinely? Yes [email or web address] Information not available 02/02/2021 Has Tobacco Cessation Counseling Been Provided? No [email or web address] Information not available 09/12/2021 Have You Used IV Drugs? No [email or web address] Information not available 02/02/2021 Sex: Unknown Functional Status Question Answer Note LastModified by Organizat ion Details LastModified Time Do you use any illicit or recreational drugs? No [email or web address] Information not available 02/02/2021 What is your level of alcohol consumption? Occasional [email or web address] Information not available 05/29/2020 Do you or have you ever used smokeless tobacco? Never used smokeless tobacco Information not available 09/12/2021 Are you able to walk independently without assistance or assistive devices? 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 Never used electronic cigarettes Information not available 09/12/2021 What is your exercise level? Occasional [email or web address] Information not available 05/29/2020 Mental Status Question Answer Note LastModified by Organization D etails LastModified Time Do you feel stressed (tense, restless, nervous, or anxious, or unable to sleep at night)? [id number] [email or web address] Information not available 02/02/2021 Family History Relationship Description Onset Age of this Age Resolved Age Notes LastModified by Organization Details LastModified Time Mother Heart disease [email or web address] Not available 05/29 10:26:33 Mother Hypertensive disorder [email or web address] Not available 05/29 10:27:41 Mother Disorder of thyroid gland [email or web address] Not available 05/29 10:28:15 Mother Anemia Not available 05/29/2020 10:28:28 Mother Seizure disorder Not available 2023 12:34:20 Mother Malignant neoplasm of cervix uteri Not available 10:33:30 Mother Polyp of colon Not available 2023 12:34:20 Mother Malignant neoplasm of endometrium of corpus uteri suspected 40 [email or web address] Not available 2023 12:34:20 Maternal Grandmother Heart disease [email or web address] Not available 05/29 10:26:33 Maternal Grandmother Hypertensive disorder [email or web address] Not available 05/29 10:27:41 Sister Heart disease Not available 05/29 10:26:33 Father Hypertensive disorder Not available 05/29 10:27:41 Father Malignant neoplasm of prostate 79 [email or web address] Not available 2023 12:34:20 Father Malignant neoplasm of colon 81 [email or web address] Not available 2023 12:26:17 Father Polyp of colon Not available 2023 12:34:20 Father Malignant neoplasm of colon [email or web address] Not available 2023 12:34:20 Brother Asthma [email or web address] Not availabl e 05/29/2020 10:28:35 Brother Seizure disorder [email or web address] Not available 2023 12:34:20 Brother Hypertensive disorder [email or web address] Not available 2023 12:34:20 Paternal Uncle Malignant neoplasm of lung [email or web address] Not available 05/29 10:33:49 Unspecified Relation Malignant neoplasm of prostate nephew [email or web address] Not available 2023 12:34:20 Paternal Aunt Malignant neoplasm of colon [email or web address] Not available 2023 12:34:20 Notes:Brother: Seizure disor aime, Asthma Father: Hypertension Maternal grandmother: Congenital heart disease, Hypertension Mother: Congenital heart disease, Seizure disorder, Anemia, Thyroid disease, Hypertension, Cervical cancer Paternal uncle: Cancer, lung Sister: Congenital heart disease Medical History Condition Response Other Y Blood Transfusion N Dermatologic Disorders N Gestational Diabetes N Anxiety Disorder Y Autoimmune disease N Arthritis N Polyps N Infertility N Acid Reflux (GERD) N Cancer N Varicosities N Stroke N Neurologic/Epilepsy Y Fibromyalgia N Headaches N Kidney Disease N Heart Problems N Kidney or Bladder Problems N Eating Disorder N Art (IVF or FET) N Hepatitis/Liver Disease N No Past Medical History N Urinary Tract Infection N Asthma N Trauma/Violence N Thrombophilias N Allergies (Food, seasonal, environmental ) Y Breast Cancer N Drug/Latex Allergies/Reactions Y Lung Disease N Defects or Inherited Disease N Breast Problem N Hematologic disorders N Anesthesia Complications N History of STI N Deep Vein Thrombosis N Polycystic ovary syndrome N History of abnormal pap N Endometriosis N High Cholesterol N Thyroid Problems N GI Problems N Anemia N Psychiatric Illness Y Ovarian Cancer N Diabetes N Pulmonary (TB, Asthma) N Eczema N Abuse/Domestic Violence N Depression/ depression Y Heart Disease N Pre-Eclampsia N Hypertension N Osteoporosis N Gynecological History Statement/Question Response Abnormal Pap [...] virus, quadrivalent, preservative 1 completed Shana quiroga, [facility] 09/12/2021 18:14:36 COVID-19, mRNA, LNP-S, PF, 30 mcg/0.3 mL dose 1 completed Shana quiroga [facility] 09/12/2021 18:14:37 Influenza, split virus, quadrivalent, PF 1 completed Shana quiroga [facility] 09/12/2021 18:14:37 Past Encounters Encounter ID Performer Location Encounter Start Date Encounter Closed Date Diagnosis/Indication Diagnosis SNOMED-CT Code Diagnosis ICD10 Code Diagnosis IMO Codes Diagnosis Note [id number] Leti Christianson [facility] [address] [address] 05/26/2020 14:33:10 05/26/2020 15:42:48 Gynecologic examination 79449437 Z01.419 Menopausal symptom 36424 002 N95.1 Vitamin D deficiency 347 18909 E55.9 [id number] Leti Christianson [facility] [address],[place] [address] 02/02/2021 16:02:21 02/06/2021 23:45:45 Menopausal symptom 75803456 N95.1 [id number] Leti Christianson [facility] [address],[place] [address] 09/12/2021 17:46:28 09/13/2021 09:49:07 Gynecologic examination 86038112 Z01.419 [id number] [facility] [address],[place] [address] 09/18/2023 18:17:53 09/19/2023 08:45:03 Gynecologic examination 96184308 Z01.419 Take Calcium with Vitamin D 12-1500mg daily. Do monthly self breast exams. It is advised to get annual flu shot in the fall and she could obtain at [facility] or [facility] clinic. If you haven't received the Tdap [...] flashes. No issues. Adult heal th examination 465341114 Z00.00 Vitamin D deficiency 347 49248 E55.9 Screening mammography 24 549014 Z12.31 [id number] JASON Richard [facility] [address] [address] 04/19/2024 12:33:32 04/19/2024 14:48:44 Urinary symptoms 082345984 R39.9 urine cx sentrx sent for cipro - r/b/a reviewedav oid bladder irritants, encouraged adequate hydrationp recautions discussed Inconclusi ve mammography finding [id number] 97455 R92.2 needs additional right breast imaging - orderedord er given to pt, encouraged her to schedule thisquesti ons answered Time spent in visit is a total of 20 mins with at least 50% of visit consisting of counseling and review of plan of care. [id number] JASON Richard [place] [address] [address] 01/27/2025 17:02:46 01/28/2025 14:15:34 Gynecologic examination 51207669 Z01.629 [id number] WWEpostmen opausalPap - done todaySTI screen - [...] estions have been answered. Screening mammography 24 443516 Z12.31 6002221125 Screening for osteoporosis 320911991 Z13.820 732008 History of nutritional deficiency 3557386367 9104 Z86.39 35012732 Adult heal th examination 808091234 Z00.00 [id number] Health Concerns Section Related Observation LastModified by Organization Detai ls LastModified Time None Recorded Concern Status LastModified by Organization Details LastModified Time None Recorded Advance Directives Directive N: Payers Insurance Date Sequence Insurance Name Policy Number Policy Darling Covered Member ID Darling Member ID Guarantor Name 04/16/2024 1 [facility] PRIOR TO 03/29/2021 (MEDICAID REPLACEMENT - HMO) Mehreen Espino [id number] Mehreen Espino 01/27/2025 [address] [facility] ON OR AFTER 03/29/21 (MEDICAID REPLACEMENT - HMO) Mehreen Espino [id number] Mehreen Espino Notes Date Note Type Note Provider Name and Address Organization Details Recorded Time 1 text/html ROS as noted in the HPI doing well on lexapro 20 but still having some bad hot flashes at night would like to add something, anxiety is so much improved Leti Christianson, DAVIDA [address], [place], [address], [place] [facility] 02/02/2021 17:00:50 1 text/html Annual GYNReported [...] as noted in the HPI Leti Christianson, [facility] [address], [place], [address], [facility] 09/14/2021 09:30:49 3 text/html Annual Counter Former Post-MenopausalReported by PatientGenitourinary symptomsFor menopausal symptoms, patient [...] mammogram, andhistory of recent colonoscopy. Erin Marie, [facility]- [address], [place], [address], [facility] 09/18/2023 18:54:08 4 text/html 58yopresents for urinary symptomsurinary frequency, burning x 2-3 weeksneg vaginal symptomsneg flank painsneg n/v/f screening mammogram done 03/2024 bi-rads 0, needs aditional right breast imaging JASON Richard [address], [place], [address], [facility] 04/19/2024 14:32:49 5 text/html Annual Counter Former Post-MenopausalReported by PatientGenitourinary symptomsFor menopausal symptoms, patient [...] hot flashes JASON Richard [address], [place], [address], [facility] 01/28/2025 10:07:45 OBGyn Episode No OBEpisode recorded.
--- OUTSIDE RECORDS SUMMARY | 2025-09-13 08:39 | XMS_ITS | Clinical Summary ---
Author Organization [facility] Address [address] [place] [address] Care Team Providers Care Telemarketer Supervisor Name Role Phone Ron Awad MD Primary Care Provider [phone] Source Comments [facility],non-owned Affiliates and Associated Physician Practices is amultiple site organization consisting of ambulatory clinics and hospital sitesin [place], [place], [place] and [place]. This disclosure is being madepursuant to the Care Everywhere program and may not contain all information available regarding this patient. Last updated 18.[facility] Allergies Active Allergy Reactions Criticality Noted Date [...] nasal sprayIndications :Acute pansinusitis, recurrence not specified Reading 1 Reading into each nostril 2 times daily 1 Bottle 1 7 Active escitalopram (LEXAPRO) 20 MG tablet Take 1 (one) tablet by mouth once daily Active vitamin D, ergocalciferol, (DRISDOL) 1.25 MG (48632 UT) capsule TAKE 1 CAPSULE EVERY WEEK [...] 05/14/1983 DTAP/TDAP/TD VACCINES (1 - Tdap) 1984 PAP SMEAR 1986 PNEUMOCOCCAL VACCINE 50+ [...] patient's age to complete this topic Insurance Care Teams Telemarketer Supervisor Relationship Specialty Start Date End Date Ron Awad MD [address] [place] [id number] PCP - General 07/22/22
== END 2025-09-13 08:21 | disposition home or self-care (01) ==
LOC: ANHFOHIMG 08:21
PROVIDERS: PCP Nurse Practitioner; Visit Provider Nurse Practitioner
DX: Z12.31 Encounter for screening mammogram for malignant neoplasm of breast (principal)
CPT/HCPCS: 77063; 77067